=== PATIENT | female | born 1940 | race Caucasian/White ===

== ENCOUNTER → 2017-09-18 13:12 | Outpatient (CLI) | payer MEDICARE, OTHER, SELFPAY ==
--- NOTE | 2017-09-18 13:33 | XR_ITS ---
XR chest 2V Ordering Physician: Brian Flroes MD Patient Age: 76 years: Female HISTORY: ITS.REASON: BRONCHITIS, TECHNIQUE: PA and lateral chest cough. Bronchitis. Cystic L since August 24, 2017. COMPARISON :Previous 2 view chest May 2007 FINDINGS Sternotomy. Aortic valve replacement. Heart slightly larger upper normal in size. The lungs are clear with no focal pneumonia or consolidation. Only question or line peribronchial cuffing questionably seen and could reflect bronchitis but unimpressive. Nothing definitely acute overall. The chest wall and T-spine otherwise unremarkable. No pleural effusion. No pneumothorax. IMPRESSION: Stable chest with nothing definitely acute. No focal pneumonia or consolidation Sternotomy and aortic valve replacement. .
== END ==
PROVIDERS: PCP Nurse Practitioner Family; Visit Provider Internal Medicine Adolescent Medicine
DX: J40 Bronchitis, not specified as acute or chronic (principal); I49.9 Cardiac arrhythmia, unspecified
CPT/HCPCS: 71046; 93005

== ENCOUNTER 2017-09-20 14:16 | Emergency (ER) | payer MEDICARE, OTHER, SELFPAY ==
[2017-09-20 14:22] VITALS: BP 125/61; PULSE 83; RESP 20; TEMP 36.6; O2SAT 96; BMI 33.7
--- NOTE | 2017-09-20 14:34 | XR_ITS ---
XR chest 2V HISTORY: ITS.REASON: CHEST PAIN ORDERING PHYSICIAN: Regan Kraft MD PATIENT AGE: 76 years COMPARISON: 09/18/2017 FINDINGS: Present in prior median sternotomy with aortic valve replacement. No evidence of CHF. No lobar consolidation or collapse. There are degenerative changes in the thoracic spine with kyphosis. IMPRESSION: Prior aortic valve replacement. No change with no acute finding.
[2017-09-20 15:08] LABS: Basophils # 0.1 K/mm3 (0-0.2); Basophils % 0.9 % (0.1-2.0); Eosinophils # 0.2 K/mm3 (0.0-0.4); Hematocrit 41.8 % (37.0-47.0); Hemoglobin 13.7 g/dL (12.2-16.2); Lymphocytes # 3.3 K/mm3 (0.7-4.5); Lymphocytes % 36.2 K/mm3 (10-50); Mean Corpuscular HGB Conc 32.8 g/dL (31.8-35.4); Mean Corpuscular Volume 94.3 fl (81-99); Mean Platelet Volume 8.6 fl (7.4-10.4); Monocytes # 0.5 K/mm3 (0.1-1.0); Monocytes % 5.8 % (1.7-9.3); Neutrophils % 55.1 % (37.0-80.0); Platelet Count 200 K/mm3 (142-424); Red Blood Count 4.44 M/mm3 (4.20-5.40); Red Cell Distribution Width 13.5 % (11.5-17.5)
[2017-09-20 15:16] VITALS: BP 126/71; PULSE 70; RESP 18; O2SAT 94
--- NOTE | 2017-09-20 15:36 | HMH.EDGENADL ---
ED Disposition Clinical Impression: Palpitations, Upper respiratory infection Chest pain Qualifiers: Chest pain type: unspecified Qualified Code(s): R07.9 - Chest pain, unspecified Disposition: Home, Self-Care Condition on Discharge: Good Instructions: DI for Atypical Chest Pain Additional Instructions: Return tomorrow to have a Holter monitor applied. The [facility] cardiology department will contact you when the Holter monitor is ready. See Dr. Flores in the office at 2 PM on 09/22/17. Additional instructions for CHEST PAIN: See your physician as soon as possible for further evaluation. Return immediately if worsening chest pain, vomiting, shortness of breath, fever, coughing of blood. Referrals: Kathleen Gong APRN [Primary Care Provider] - - Critical Care Critical Care Time: No Attestation: On 09/20/17, the high probability of a clinically significant, sudden or life threatening deterioration of the following system(s) required my full and direct attention, intervention and personal management. The time I documented below is in addition to time spent performing reported procedures but includes the following listed in this critical care notation. Medical Decision Making Vital Signs: 09/20/17 14:22 09/20/17 15:16 09/20/17 16:00 Temperature 97.9 F Temperature Source Oral Pulse Rate [Right Brachial] 83 70 67 Respiratory Rate 20 18 16 Blood Pressure [Right Arm] 125/61 126/71 125/60 Blood Pressure Mean [Right Arm] 82 89 81 Blood Pressure Source [Right Arm] Automatic Cuff Automatic Cuff Automatic Cuff Blood Pressure Position [Right Arm] Sitting Sitting Sitting 02 Sat by Pulse Oximetry 96 94 L 94 L Oxygen Delivery Method Room Air Room Air Room Air - Lab Data Lab results reviewed: Yes: I reviewed the patient's lab results. Lab Results 09/20/17 14:30: WBC 9.0, RBC 4.44, Hgb 13.7, Hct 41.8, MCV 94.3, MCH 31.0, MCHC 32.8, RDW 13.5, Plt Count 200, MPV 8.6, Neut % (Auto) 55.1, Lymph % (Auto) 36.2, Taylor % (Auto) 5.8, Eos % (Auto) 2.0, Baso % (Auto) 0.9, Neut # (Auto) 5.0, Lymph # (Auto) 3.3, Taylor # (Auto) 0.5, Eos # (Auto) 0.2, Baso # (Auto) 0.1 09/20/17 14:30: Sodium 139, Potassium 3.9, Chloride 105, Carbon Dioxide 24, Anion Gap 13.9, BUN 12, Creatinine 0.75, Estimated Creat Clear 68, Estimated GFR 75, Est GFR ( Amer) 91, Glucose 124 H, Calcium 8.1 L, Total Bilirubin 0.3, AST 24, ALT 37, Alkaline Phosphatase 84, Total Creatine Kinase 62, CK-MB (CK-2) 0.5, CK-MB (CK-2) Rel Index 0.8, Troponin I 0.04, Total Protein 6.6, Albumin 3.4, Globulin 3.2, Albumin/Globulin Ratio 1.1 Result diagrams: 09/20/17 14:30 09/20/17 14:30 - Radiology Data #1 Image(s): Chest Image Reviewed: Yes I reviewed the patient's radiology results Preliminary Findings: Normal/NAD No change from x-ray performed 2 days ago - ECG Data Tracing #1 EKG interpreted by Regan Kraft MD: Rhythm: sinus Rate: 82 [place]: normal Ectopy: Unifocal PVCs Conduction: Right bundle branch block ST Segment Changes: none T Wave Changes: none Q Waves: none No evidence of acute ischemia or injury Baseline artifact present, but I consider the EKG adequate for accurate interpretation. No significant change from EKG performed 2 days ago. - Karlos Inquiry Pt receiving controlled substance: No Medical Decision Making Narrative: 4:20 PM: Case discussed with Dr. Flores. He requests patient be discharged to follow-up with him in the office at 2:00 PM on Monday. 24-hour Holter monitor, today if possible. Monitor not available currently, but will be available tomorrow. Patient to return tomorrow. Cardiology is to contact her when the Holter monitor is available. General Adult HPI - General Chief complaint: Chest Pain Stated complaint: CHEST PAIN Mode of Arrival: Ambulatory Limitations: No Limitations Description of Symptoms (Recalled from ER Triage Doc. by RN): PT STATES SHE HAS BEEN SICK WITH A COL SINCE 1
[2017-09-20 15:41] LABS: Alanine Aminotransferase 37 U/L (12-78); Albumin Level 3.4 gm/dL (3.4-5.0); Albumin/Globulin Ratio 1.1 (1.1-1.8); Alkaline Phosphatase 84 U/L (46-116); Anion Gap 13.9 mEq/L (5-15); Bilirubin,Total 0.3 mg/dL (0.2-1.0); Blood Urea Nitrogen 12 mg/dL (7-18); CKMB Relative Index 0.8 U/L (0-4.0); Calcium 8.1 mg/dL (8.5-10.1); Carbon Dioxide 24 mmol/L (21.0-32.0); Chloride 105 mmol/L (98-107); Creatine Kinase 62 U/L (26-192); Creatine Kinase MB 0.5 mg/ml (0.0-3.6); Creatinine Clearance Estimated 68 mL/min (0-300); Creatinine,Serum 0.75 mg/dL (0.55-1.02); Estimated Glomerular Filt Rate 75 ml/min (>60); GFR (African American) 91 ML/MIN (>60); Globulin 3.2 gm/dl (1.3-3.2); Glucose 124 mg/dL (74-106); Sodium 139 mmol/L (136-145); Total Protein,Serum 6.6 gm/dL (6.4-8.2); Troponin I 0.04 ng/ml (0.00-0.06)
[2017-09-20 15:42] LABS: Aspartate Amino Transferase 24 U/L (15-37); Potassium 3.9 mmoL/L (3.5-5.1)
[2017-09-20 16:00] VITALS: BP 125/60; PULSE 67; RESP 16; O2SAT 94
--- NOTE | 2017-09-20 16:29 | INFXCTL.NOTE ---
INFORMED PATIENT THAT HOLTER MONITOR WOULD BE AVAILABLE JOSE LUIS. I OBTAINED PATIENT'S CONTACT INFO. AND RELAYED IT TO Monica TOBIN WHO STATED SHE WOULD PASS ALONG TO HAVE SOMEONE CONTACT HER WHEN THE HOLTER MONITOR BECOMES AVAILABLE.
[2017-09-20 16:40] VITALS: BP 125/60; PULSE 83; RESP 18; O2SAT 95
[2017-09-20 16:49] VITALS: BP 124/66; PULSE 76; RESP 18; TEMP 36.7; O2SAT 96
== END 2017-09-20 16:53 | disposition home or self-care (01) ==
PROVIDERS: Emergency Provider Emergency Medicine; Family Provider Internal Medicine Adolescent Medicine; PCP Nurse Practitioner Family
DX: R00.2 Palpitations (principal); J06.9 Acute upper respiratory infection, unspecified
CPT/HCPCS: 71046; 80053; 82550; 82553; 84484; 85025; 93005; 93041; 99284

== ENCOUNTER → 2017-09-21 13:23 | Outpatient (CLI) | payer MEDICARE, OTHER, SELFPAY ==
[2017-09-21 14:14] LABS: PHA INR Fingerstick 1.6 (0.9-1.1)
== END ==
PROVIDERS: Family Provider Internal Medicine Adolescent Medicine; PCP Nurse Practitioner Family; Visit Provider Internal Medicine Adolescent Medicine
DX: Z79.01 Long term (current) use of anticoagulants (principal); Z51.81 Encounter for therapeutic drug level monitoring; R07.9 Chest pain, unspecified
CPT/HCPCS: 85610; 93225; 93226; 99211; G0463

== ENCOUNTER 2017-10-03 14:45 | Outpatient (CLI) | payer MEDICARE, OTHER, SELFPAY ==
[2017-10-03 15:49] LABS: PHA INR Fingerstick 2.1 (0.9-1.1)
== END 2017-10-03 15:51 | disposition home or self-care (01) ==
LOC: ACC 14:47
PROVIDERS: PCP Internal Medicine Adolescent Medicine; Visit Provider Internal Medicine Adolescent Medicine
DX: Z79.01 Long term (current) use of anticoagulants (principal); Z95.2 Presence of prosthetic heart valve; Z51.81 Encounter for therapeutic drug level monitoring
CPT/HCPCS: 85610; 99211; G0463

== ENCOUNTER 2017-10-17 14:49 | Outpatient (CLI) | payer MEDICARE, OTHER, SELFPAY ==
[2017-10-17 15:39] LABS: PHA INR Fingerstick 1.6 (0.9-1.1)
== END 2017-10-17 15:41 | disposition home or self-care (01) ==
LOC: ACC 14:50
PROVIDERS: PCP Internal Medicine Adolescent Medicine; Visit Provider Internal Medicine Adolescent Medicine
DX: Z79.01 Long term (current) use of anticoagulants (principal); Z51.81 Encounter for therapeutic drug level monitoring; Z95.2 Presence of prosthetic heart valve
CPT/HCPCS: 85610; 99211; G0463

== ENCOUNTER 2017-10-24 13:54 | Outpatient (CLI) | payer MEDICARE, OTHER, SELFPAY ==
[2017-10-24 14:20] VITALS: BP 108/48; PULSE 67; RESP 20; TEMP 36.6; O2SAT 98
[2017-10-24 14:40] VITALS: BP 102/52; PULSE 67; RESP 20; TEMP 36.6; O2SAT 98
== END 2017-10-24 14:50 | disposition home or self-care (01) ==
PROVIDERS: Family Provider Internal Medicine Adolescent Medicine; PCP Internal Medicine Adolescent Medicine; Visit Provider Internal Medicine Adolescent Medicine
DX: M81.0 Age-related osteoporosis without current pathological fracture (principal)
CPT/HCPCS: 96372; J0897

== ENCOUNTER 2017-10-31 15:35 | Outpatient (CLI) | payer MEDICARE, OTHER, SELFPAY ==
[2017-10-31 16:16] LABS: PHA INR Fingerstick 1.8 (0.9-1.1)
== END 2017-10-31 16:17 | disposition home or self-care (01) ==
LOC: ACC 15:36
PROVIDERS: Family Provider Internal Medicine Adolescent Medicine; PCP Internal Medicine Adolescent Medicine; Visit Provider Internal Medicine Adolescent Medicine
DX: Z79.01 Long term (current) use of anticoagulants (principal); Z51.81 Encounter for therapeutic drug level monitoring; Z95.2 Presence of prosthetic heart valve
CPT/HCPCS: 85610; 99211; G0463

== ENCOUNTER → 2017-11-01 16:22 | Outpatient (CLI) | payer MEDICARE, OTHER, SELFPAY | PROVIDERS: Visit Provider Nurse Practitioner Family | DX: J40 Bronchitis, not specified as acute or chronic (principal) | CPT/HCPCS: 87070; 87205 ==

== ENCOUNTER 2017-11-14 15:00 | Outpatient (CLI) | payer MEDICARE, OTHER, SELFPAY | END 2017-11-14 15:45 | disposition home or self-care (01) | LOC: ACC 15:02 | PROVIDERS: PCP Internal Medicine Adolescent Medicine; Visit Provider Internal Medicine Adolescent Medicine | DX: Z79.01 Long term (current) use of anticoagulants (principal); Z51.81 Encounter for therapeutic drug level monitoring; Z95.2 Presence of prosthetic heart valve | CPT/HCPCS: 85610; 99211; G0463 ==

== ENCOUNTER 2017-12-12 15:02 | Outpatient (CLI) | payer MEDICARE, OTHER, SELFPAY ==
[2017-12-12 16:01] LABS: PHA INR Fingerstick 2.9 (0.9-1.1)
== END 2017-12-12 16:07 | disposition home or self-care (01) ==
LOC: ACC 15:04
PROVIDERS: PCP Internal Medicine Adolescent Medicine; Visit Provider Internal Medicine Adolescent Medicine
DX: Z79.01 Long term (current) use of anticoagulants (principal); Z51.81 Encounter for therapeutic drug level monitoring; Z95.2 Presence of prosthetic heart valve
CPT/HCPCS: 85610; 99211; G0463

== ENCOUNTER 2018-01-15 14:57 | Outpatient (CLI) | payer MEDICARE, OTHER, SELFPAY ==
[2018-01-15 15:36] LABS: PHA INR Fingerstick 2.5 (0.9-1.1)
== END 2018-01-15 15:44 | disposition home or self-care (01) ==
LOC: ACC 14:59
PROVIDERS: Family Provider Internal Medicine Adolescent Medicine; PCP Internal Medicine Adolescent Medicine; Visit Provider Internal Medicine Adolescent Medicine
DX: Z79.01 Long term (current) use of anticoagulants (principal); Z51.81 Encounter for therapeutic drug level monitoring; Z95.2 Presence of prosthetic heart valve
CPT/HCPCS: 85610; 99211; G0463

== ENCOUNTER 2018-02-12 15:03 | Outpatient (CLI) | payer MEDICARE, OTHER, SELFPAY ==
[2018-02-12 16:12] LABS: PHA INR Fingerstick 3.5 (0.9-1.1)
== END 2018-02-12 16:16 | disposition home or self-care (01) ==
LOC: ACC 15:05
PROVIDERS: Family Provider Internal Medicine Adolescent Medicine; PCP Internal Medicine Adolescent Medicine; Visit Provider Internal Medicine Adolescent Medicine
DX: Z79.01 Long term (current) use of anticoagulants (principal); Z51.81 Encounter for therapeutic drug level monitoring
CPT/HCPCS: 85610; 99211; G0463

== ENCOUNTER 2018-02-26 14:59 | Outpatient (CLI) | payer MEDICARE, OTHER, SELFPAY ==
[2018-02-26 15:42] LABS: PHA INR Fingerstick 1.8 (0.9-1.1)
== END 2018-02-26 15:45 | disposition home or self-care (01) ==
LOC: ACC 15:02
PROVIDERS: Family Provider Internal Medicine Adolescent Medicine; PCP Internal Medicine Adolescent Medicine; Visit Provider Internal Medicine Adolescent Medicine
DX: Z79.01 Long term (current) use of anticoagulants (principal); Z51.81 Encounter for therapeutic drug level monitoring; Z95.2 Presence of prosthetic heart valve
CPT/HCPCS: 85610; 99211; G0463

== ENCOUNTER 2018-03-08 14:43 | Outpatient (CLI) | payer MEDICARE, OTHER, SELFPAY ==
[2018-03-08 16:13] LABS: PHA INR Fingerstick 3.2 (0.9-1.1)
== END 2018-03-08 16:15 | disposition home or self-care (01) ==
LOC: ACC 14:44
PROVIDERS: Internal Medicine Adolescent Medicine; PCP Nurse Practitioner Family; Visit Provider Nurse Practitioner Family
DX: Z79.01 Long term (current) use of anticoagulants (principal); Z51.81 Encounter for therapeutic drug level monitoring; Z95.2 Presence of prosthetic heart valve
CPT/HCPCS: 85610; 99211; G0463

== ENCOUNTER 2018-03-30 14:49 | Outpatient (CLI) | payer MEDICARE, OTHER, SELFPAY ==
[2018-03-30 16:24] LABS: PHA INR Fingerstick 2.7 (0.9-1.1)
== END 2018-03-30 16:26 | disposition home or self-care (01) ==
LOC: ACC 14:50
PROVIDERS: PCP Internal Medicine Adolescent Medicine; Visit Provider Internal Medicine Adolescent Medicine
DX: Z79.01 Long term (current) use of anticoagulants (principal); Z51.81 Encounter for therapeutic drug level monitoring; Z95.2 Presence of prosthetic heart valve
CPT/HCPCS: 85610; 99211; G0463

== ENCOUNTER 2018-04-26 13:55 | Outpatient (CLI) | payer MEDICARE, OTHER, SELFPAY ==
[2018-04-26 14:43] VITALS: BP 121/60; PULSE 81; RESP 18; TEMP 36.5; O2SAT 97
== END 2018-04-26 14:45 | disposition home or self-care (01) ==
LOC: INF 14:03
PROVIDERS: Family Provider Internal Medicine Adolescent Medicine; PCP Internal Medicine Adolescent Medicine; Visit Provider Internal Medicine Adolescent Medicine
DX: Z79.01 Long term (current) use of anticoagulants (principal); Z51.81 Encounter for therapeutic drug level monitoring
CPT/HCPCS: 96372; J0897

== ENCOUNTER 2018-04-26 14:45 | Outpatient (CLI) | payer MEDICARE, OTHER, SELFPAY ==
[2018-04-26 15:31] LABS: PHA INR Fingerstick 2.8 (0.9-1.1)
== END 2018-04-26 15:34 | disposition home or self-care (01) ==
LOC: ACC 14:46
PROVIDERS: Family Provider Internal Medicine Adolescent Medicine; PCP Internal Medicine Adolescent Medicine; Visit Provider Internal Medicine Adolescent Medicine
DX: Z79.01 Long term (current) use of anticoagulants (principal); Z51.81 Encounter for therapeutic drug level monitoring; Z95.2 Presence of prosthetic heart valve; M81.0 Age-related osteoporosis without current pathological fracture
CPT/HCPCS: 85610; 96372; 99211; G0463; J0897

== ENCOUNTER → 2018-04-27 12:36 | Outpatient (CLI) | payer MEDICARE, OTHER, SELFPAY | PROVIDERS: Family Provider Internal Medicine Adolescent Medicine; PCP Internal Medicine Adolescent Medicine; Visit Provider Nurse Practitioner Family | DX: M81.0 Age-related osteoporosis without current pathological fracture (principal) ==

== ENCOUNTER → 2018-05-02 13:29 | Outpatient (CLI) | payer MEDICARE, OTHER, SELFPAY ==
--- NOTE | 2018-05-02 13:38 | XR_ITS ---
XR DEXA axial skeleton HISTORY: ITS.REASON: OSTEOPOROSIS ORDERING PHYSICIAN: Brian Flores MD PATIENT AGE: 77 years COMPARISON: 03/24/2016 FINDINGS: The BMD measured at the AP Spine L1-L4 is 0.949 g/cm squared with a T score of -1.9. This is considered Osteopenic according to the World Health Organization criteria. Fracture risk is Moderate. Treatment is advised. Lumbar spine density has increased by 4%. Mean hip density has a T score of -1.7 consistent with osteopenia. This has increased by 4% compared to the previous exam. IMPRESSION: Osteopenia with moderate fracture risk. Treatment is suggested. Recommend follow-up exam April 2020
== END ==
PROVIDERS: Family Provider Internal Medicine Adolescent Medicine; PCP Internal Medicine Adolescent Medicine; Visit Provider Internal Medicine Adolescent Medicine
DX: M81.0 Age-related osteoporosis without current pathological fracture (principal)
CPT/HCPCS: 77080

== ENCOUNTER 2018-05-28 13:48 | Outpatient (CLI) | payer MEDICARE, OTHER, SELFPAY ==
[2018-05-28 14:54] LABS: PHA INR Fingerstick 3.5 (0.9-1.1)
== END 2018-05-28 14:57 | disposition home or self-care (01) ==
LOC: ACC 13:49
PROVIDERS: Family Provider Internal Medicine Adolescent Medicine; PCP Internal Medicine Adolescent Medicine; Visit Provider Internal Medicine Adolescent Medicine
DX: Z51.81 Encounter for therapeutic drug level monitoring (principal); Z79.01 Long term (current) use of anticoagulants; Z95.2 Presence of prosthetic heart valve
CPT/HCPCS: 85610; 99211; G0463

== ENCOUNTER 2018-06-07 14:54 | Outpatient (CLI) | payer MEDICARE, OTHER, SELFPAY ==
[2018-06-07 15:43] LABS: PHA INR Fingerstick 2.1 (0.9-1.1)
== END 2018-06-07 15:45 | disposition home or self-care (01) ==
LOC: ACC 14:56
PROVIDERS: PCP Internal Medicine Adolescent Medicine; Visit Provider Internal Medicine Adolescent Medicine
DX: Z51.81 Encounter for therapeutic drug level monitoring (principal); Z79.01 Long term (current) use of anticoagulants; Z95.2 Presence of prosthetic heart valve
CPT/HCPCS: 85610; 99211; G0463

== ENCOUNTER 2018-06-14 14:54 | Outpatient (CLI) | payer MEDICARE, OTHER, SELFPAY ==
[2018-06-14 15:33] LABS: PHA INR Fingerstick 2.8 (0.9-1.1)
== END 2018-06-14 15:38 | disposition home or self-care (01) ==
LOC: ACC 14:55
PROVIDERS: PCP Internal Medicine Adolescent Medicine; Visit Provider Internal Medicine Adolescent Medicine
DX: Z51.81 Encounter for therapeutic drug level monitoring (principal); Z79.01 Long term (current) use of anticoagulants; Z95.2 Presence of prosthetic heart valve
CPT/HCPCS: 85610; 99211; G0463

== ENCOUNTER 2018-06-28 14:54 | Outpatient (CLI) | payer MEDICARE, OTHER, SELFPAY ==
[2018-06-28 15:37] LABS: PHA INR Fingerstick 2.3 (0.9-1.1)
== END 2018-06-28 15:46 | disposition home or self-care (01) ==
LOC: ACC 14:56
PROVIDERS: PCP Internal Medicine Adolescent Medicine; Visit Provider Internal Medicine Adolescent Medicine
DX: Z51.81 Encounter for therapeutic drug level monitoring (principal); Z79.01 Long term (current) use of anticoagulants; Z95.2 Presence of prosthetic heart valve
CPT/HCPCS: 85610; 99211; G0463

== ENCOUNTER 2018-07-17 14:48 | Outpatient (CLI) | payer MEDICARE, OTHER, SELFPAY ==
[2018-07-17 16:17] LABS: PHA INR Fingerstick 2.2 (0.9-1.1)
== END 2018-07-17 16:20 | disposition home or self-care (01) ==
LOC: ACC 14:49
PROVIDERS: PCP Internal Medicine Adolescent Medicine; Visit Provider Internal Medicine Adolescent Medicine
DX: Z95.2 Presence of prosthetic heart valve (principal); Z79.01 Long term (current) use of anticoagulants
CPT/HCPCS: 85610; 99211; G0463

== ENCOUNTER 2018-08-03 14:56 | Outpatient (CLI) | payer MEDICARE, OTHER, SELFPAY ==
[2018-08-03 15:43] LABS: PHA INR Fingerstick 2.5 (0.9-1.1)
== END 2018-08-03 15:48 | disposition home or self-care (01) ==
LOC: ACC 14:57
PROVIDERS: PCP Internal Medicine Adolescent Medicine; Visit Provider Internal Medicine Adolescent Medicine
DX: Z51.81 Encounter for therapeutic drug level monitoring (principal); Z79.01 Long term (current) use of anticoagulants; Z95.2 Presence of prosthetic heart valve
CPT/HCPCS: 85610; 99211; G0463

== ENCOUNTER 2018-09-03 14:53 | Outpatient (CLI) | payer MEDICARE, OTHER, SELFPAY ==
[2018-09-03 15:52] LABS: PHA INR Fingerstick 2.2 (0.9-1.1)
== END 2018-09-03 15:53 | disposition home or self-care (01) ==
LOC: ACC 14:56
PROVIDERS: PCP Internal Medicine Adolescent Medicine; Visit Provider Internal Medicine Adolescent Medicine
DX: Z51.81 Encounter for therapeutic drug level monitoring (principal); Z79.01 Long term (current) use of anticoagulants; Z95.2 Presence of prosthetic heart valve
CPT/HCPCS: 85610; 99211; G0463

== ENCOUNTER 2018-09-18 14:50 | Outpatient (CLI) | payer MEDICARE, OTHER, SELFPAY ==
[2018-09-18 15:51] LABS: PHA INR Fingerstick 2.3 (0.9-1.1)
== END 2018-09-18 15:54 | disposition home or self-care (01) ==
LOC: ACC 14:51
PROVIDERS: PCP Internal Medicine Adolescent Medicine; Visit Provider Internal Medicine Adolescent Medicine
DX: Z51.81 Encounter for therapeutic drug level monitoring (principal); Z79.01 Long term (current) use of anticoagulants; Z95.2 Presence of prosthetic heart valve
CPT/HCPCS: 85610; 99211; G0463

== ENCOUNTER 2018-10-03 15:02 | Outpatient (CLI) | payer MEDICARE, OTHER, SELFPAY ==
[2018-10-03 15:40] LABS: PHA INR Fingerstick 2.3 (0.9-1.1)
== END 2018-10-03 15:42 | disposition home or self-care (01) ==
LOC: ACC 15:04
PROVIDERS: PCP Internal Medicine Adolescent Medicine; Visit Provider Internal Medicine Adolescent Medicine
DX: Z51.81 Encounter for therapeutic drug level monitoring (principal); Z79.01 Long term (current) use of anticoagulants; Z95.2 Presence of prosthetic heart valve
CPT/HCPCS: 85610; 99211; G0463

== ENCOUNTER → 2018-10-09 12:59 | Outpatient (CLI) | payer MEDICARE, OTHER, SELFPAY ==
[2018-10-09 13:40] LABS: Basophils # 0.1 K/mm3 (0-0.2); Basophils % 0.9 % (0.1-2.0); Eosinophils # 0.1 K/mm3 (0.0-0.4); Eosinophils % 1.6 % (0.1-12.0); Hematocrit 44.2 % (37.0-47.0); Hemoglobin 14.5 g/dL (12.2-16.2); Lymphocytes # 3.1 K/mm3 (0.7-4.5); Lymphocytes % 43.6 % (10-50); Mean Corpuscular HGB Conc 32.8 g/dL (31.8-35.4); Mean Corpuscular Hemoglobin 30.6 pg (27.0-31.2); Mean Corpuscular Volume 93.3 fl (81-99); Mean Platelet Volume 7.1 fl (7.4-10.4); Monocytes # 0.4 K/mm3 (0.1-1.0); Monocytes % 5.2 % (1.7-9.3); Neutrophils # 3.5 K/mm3 (1.8-7.8); Neutrophils % 48.7 % (37.0-80.0); Platelet Count 243 K/mm3 (142-424); Red Blood Count 4.74 M/mm3 (4.20-5.40); Red Cell Distribution Width 13.9 % (11.5-17.5); White Blood Count 7.1 K/mm3 (4.8-10.8)
[2018-10-09 14:32] LABS: Alanine Aminotransferase 34 U/L (12-78); Albumin Level 3.7 gm/dL (3.4-5.0); Albumin/Globulin Ratio 1.1 (1.1-1.8); Alkaline Phosphatase 68 U/L (46-116); Aspartate Amino Transferase 19 U/L (15-37); Bilirubin,Total 0.3 mg/dL (0.2-1.0); Blood Urea Nitrogen 11 mg/dL (7-18); Calcium 8.8 mg/dL (8.5-10.1); Carbon Dioxide 24 mmol/L (21.0-32.0); Chloride 103 mmol/L (98-107); Chol/HDL Ratio 3.3 (1-3.5); Cholesterol 156 mg/dL (140-200); Creatinine,Serum 0.84 mg/dL (0.55-1.02); Estimated Glomerular Filt Rate 66 ml/min (>60); GFR (African American) 79 ML/MIN (>60); Globulin 3.3 gm/dl (1.3-3.2); Glucose 119 mg/dL (74-106); HDL Cholesterol 48 mg/dL (29-89); LDL Cholesterol 84 mg/dL (0-130); Sodium 139 mmol/L (136-145); Triglycerides 118 mg/dL (30-200); VLDL Cholesterol 24 mg/dL (0-40)
[2018-10-09 15:00] LABS: Hemoglobin A1C 6.4 % (0.0-7.0)
[2018-10-10 10:22] LABS: Creatinine, Urine 37.6 mg/dL (Not Estab.); Microalbumin, Urine <3.0 ug/mL (Not Estab.)
== END ==
PROVIDERS: Visit Provider Nurse Practitioner Family
DX: I10 Essential (primary) hypertension (principal); E78.5 Hyperlipidemia, unspecified; R73.03 Prediabetes; M81.0 Age-related osteoporosis without current pathological fracture; Z51.81 Encounter for therapeutic drug level monitoring; Z79.01 Long term (current) use of anticoagulants
CPT/HCPCS: 36415; 80053; 80061; 82043; 82570; 82652; 83036; 85025

== ENCOUNTER 2018-10-24 14:53 | Outpatient (CLI) | payer MEDICARE, OTHER, SELFPAY ==
[2018-10-24 15:56] LABS: PHA INR Fingerstick 3.2 (0.9-1.1)
== END 2018-10-24 15:58 | disposition home or self-care (01) ==
LOC: ACC 14:55
PROVIDERS: PCP Internal Medicine Adolescent Medicine; Visit Provider Internal Medicine Adolescent Medicine
DX: Z51.81 Encounter for therapeutic drug level monitoring (principal); Z79.01 Long term (current) use of anticoagulants; Z95.2 Presence of prosthetic heart valve
CPT/HCPCS: 85610; 99211; G0463

== ENCOUNTER 2018-10-31 13:59 | Outpatient (CLI) | payer MEDICARE, OTHER, SELFPAY ==
[2018-10-31 14:11] VITALS: BP 120/61; PULSE 71; RESP 18; TEMP 36.6; O2SAT 93
== END 2018-10-31 14:13 | disposition home or self-care (01) ==
LOC: INF 13:59
PROVIDERS: Visit Provider Internal Medicine Adolescent Medicine
DX: M81.0 Age-related osteoporosis without current pathological fracture (principal)
CPT/HCPCS: 96372; J0897

== ENCOUNTER 2018-11-28 14:51 | Outpatient (CLI) | payer MEDICARE, OTHER, SELFPAY ==
[2018-11-28 15:36] LABS: PHA INR Fingerstick 2.2 (0.9-1.1)
== END 2018-11-28 15:52 | disposition home or self-care (01) ==
LOC: ACC 14:52
PROVIDERS: PCP Internal Medicine Adolescent Medicine; Visit Provider Internal Medicine Adolescent Medicine
DX: Z51.81 Encounter for therapeutic drug level monitoring (principal); Z79.01 Long term (current) use of anticoagulants; Z95.2 Presence of prosthetic heart valve
CPT/HCPCS: 85610; 99211; G0463

== ENCOUNTER → 2018-12-13 16:08 | Outpatient (CLI) | payer MEDICARE, OTHER, SELFPAY ==
[2018-12-13 17:06] LABS: Basophils # 0.1 K/mm3 (0-0.2); Basophils % 0.8 % (0.1-2.0); Eosinophils # 0.2 K/mm3 (0.0-0.4); Eosinophils % 1.8 % (0.1-12.0); Hematocrit 43.9 % (37.0-47.0); Hemoglobin 14.7 g/dL (12.2-16.2); Lymphocytes # 3.6 K/mm3 (0.7-4.5); Lymphocytes % 40.3 % (10-50); Mean Corpuscular HGB Conc 33.4 g/dL (31.8-35.4); Mean Corpuscular Hemoglobin 31.1 pg (27.0-31.2); Mean Corpuscular Volume 93.2 fl (81-99); Mean Platelet Volume 7.4 fl (7.4-10.4); Monocytes # 0.5 K/mm3 (0.1-1.0); Monocytes % 5.4 % (1.7-9.3); Neutrophils # 4.7 K/mm3 (1.8-7.8); Neutrophils % 51.7 % (37.0-80.0); Platelet Count 282 K/mm3 (142-424); Red Blood Count 4.71 M/mm3 (4.20-5.40); Red Cell Distribution Width 13.8 % (11.5-17.5)
[2018-12-13 17:08] LABS: INR 2.53 (0.9-1.1); Prothrombin Time 25.4 seconds (9.4-11.8)
[2018-12-13 19:34] LABS: Anion Gap 15.5 mEq/L (5-15); Blood Urea Nitrogen 15 mg/dL (7-18); Calcium 9.3 mg/dL (8.5-10.1); Carbon Dioxide 24 mmol/L (21.0-32.0); Chloride 102 mmol/L (98-107); Creatinine,Serum 0.95 mg/dL (0.55-1.02); Estimated Glomerular Filt Rate 57 ml/min (>60); GFR (African American) 69 ML/MIN (>60); Glucose 86 mg/dL (74-106); Magnesium 2.3 mg/dL (1.4-2.2); Potassium 4.5 mmoL/L (3.5-5.1); Sodium 137 mmol/L (136-145); Thyroid Stimulating Hormone 2.01 uIU/ml (0.358-3.740)
== END ==
PROVIDERS: Visit Provider Nurse Practitioner Family
DX: R00.1 Bradycardia, unspecified (principal); I35.9 Nonrheumatic aortic valve disorder, unspecified; Z51.81 Encounter for therapeutic drug level monitoring; Z79.01 Long term (current) use of anticoagulants
CPT/HCPCS: 36415; 80048; 83735; 84443; 85025; 85610

== ENCOUNTER 2018-12-24 14:56 | Outpatient (CLI) | payer MEDICARE, OTHER, SELFPAY ==
[2018-12-24 15:33] LABS: PHA INR Fingerstick 2.7 (0.9-1.1)
== END 2018-12-24 15:34 | disposition home or self-care (01) ==
LOC: ACC 14:57
PROVIDERS: PCP Internal Medicine Adolescent Medicine; Visit Provider Internal Medicine Adolescent Medicine
DX: Z51.81 Encounter for therapeutic drug level monitoring (principal); Z79.01 Long term (current) use of anticoagulants; Z95.2 Presence of prosthetic heart valve
CPT/HCPCS: 85610; 99211; G0463

== ENCOUNTER → 2019-01-25 15:33 | Outpatient (CLI) | payer MEDICARE, OTHER, SELFPAY ==
[2019-01-25 16:54] LABS: Basophils # 0.1 K/mm3 (0-0.2); Basophils % 0.7 % (0.1-2.0); Eosinophils # 0.1 K/mm3 (0.0-0.4); Hematocrit 43.3 % (37.0-47.0); Hemoglobin 14.7 g/dL (12.2-16.2); Lymphocytes # 2.4 K/mm3 (0.7-4.5); Lymphocytes % 35.5 % (10-50); Mean Corpuscular HGB Conc 33.9 g/dL (31.8-35.4); Mean Corpuscular Hemoglobin 30.9 pg (27.0-31.2); Mean Platelet Volume 7.7 fl (7.4-10.4); Monocytes # 0.4 K/mm3 (0.1-1.0); Monocytes % 5.5 % (1.7-9.3); Neutrophils # 3.8 K/mm3 (1.8-7.8); Neutrophils % 56.3 % (37.0-80.0); Platelet Count 237 K/mm3 (142-424); Red Blood Count 4.76 M/mm3 (4.20-5.40); Red Cell Distribution Width 13.3 % (11.5-17.5); White Blood Count 6.8 K/mm3 (4.8-10.8)
[2019-01-25 17:36] LABS: Alanine Aminotransferase 68 U/L (12-78); Albumin Level 3.4 gm/dL (3.4-5.0); Albumin/Globulin Ratio 1.1 (1.1-1.8); Alkaline Phosphatase 72 U/L (46-116); Amylase 36 U/L (25-115); Anion Gap 12.9 mEq/L (5-15); Aspartate Amino Transferase 55 U/L (15-37); Bilirubin,Total 0.4 mg/dL (0.2-1.0); Blood Urea Nitrogen 12 mg/dL (7-18); Calcium 7.8 mg/dL (8.5-10.1); Carbon Dioxide 21 mmol/L (21.0-32.0); Chloride 105 mmol/L (98-107); Creatinine,Serum 0.86 mg/dL (0.55-1.02); Estimated Glomerular Filt Rate 64 ml/min (>60); GFR (African American) 77 ML/MIN (>60); Glucose 135 mg/dL (74-106); Lipase 176 u/L (73-393); Potassium 3.9 mmoL/L (3.5-5.1); Sodium 135 mmol/L (136-145); Total Protein,Serum 6.4 gm/dL (6.4-8.2)
== END ==
PROVIDERS: Visit Provider Internal Medicine Adolescent Medicine
DX: R10.84 Generalized abdominal pain (principal); Z95.2 Presence of prosthetic heart valve; Z79.01 Long term (current) use of anticoagulants
CPT/HCPCS: 36415; 80053; 82150; 83690; 85025

== ENCOUNTER 2019-01-28 14:49 | Outpatient (CLI) | payer MEDICARE, OTHER, SELFPAY | END 2019-01-28 15:32 | disposition home or self-care (01) | LOC: ACC 14:50 | PROVIDERS: PCP Internal Medicine Adolescent Medicine; Visit Provider Internal Medicine Adolescent Medicine | DX: Z51.81 Encounter for therapeutic drug level monitoring (principal); Z79.01 Long term (current) use of anticoagulants; Z95.2 Presence of prosthetic heart valve | CPT/HCPCS: 85610; 99211; G0463 ==

== ENCOUNTER 2019-02-26 14:45 | Outpatient (CLI) | payer MEDICARE, OTHER, SELFPAY ==
[2019-02-26 15:50] LABS: PHA INR Fingerstick 2.4 (0.9-1.1)
== END 2019-02-26 15:51 | disposition home or self-care (01) ==
LOC: ACC 14:46
PROVIDERS: PCP Internal Medicine Adolescent Medicine; Visit Provider Internal Medicine Adolescent Medicine
DX: Z51.81 Encounter for therapeutic drug level monitoring (principal); Z79.01 Long term (current) use of anticoagulants; Z95.2 Presence of prosthetic heart valve
CPT/HCPCS: 85610; 99211; G0463

== ENCOUNTER → 2019-03-28 17:18 | Outpatient (CLI) | payer MEDICARE, OTHER, SELFPAY ==
[2019-03-28 17:35] LABS: Basophils # 0.1 K/mm3 (0-0.2); Basophils % 0.7 % (0.1-2.0); Eosinophils # 0.2 K/mm3 (0.0-0.4); Hematocrit 41.6 % (37.0-47.0); Lymphocytes # 3.5 K/mm3 (0.7-4.5); Lymphocytes % 39.2 % (10-50); Mean Corpuscular HGB Conc 31.1 g/dL (31.8-35.4); Mean Corpuscular Hemoglobin 30.4 pg (27.0-31.2); Mean Corpuscular Volume 97.8 fl (81-99); Mean Platelet Volume 8.3 fl (7.4-10.4); Monocytes # 0.5 K/mm3 (0.1-1.0); Monocytes % 5.8 % (1.7-9.3); Neutrophils # 4.6 K/mm3 (1.8-7.8); Neutrophils % 52.4 % (37.0-80.0); Platelet Count 220 K/mm3 (142-424); Red Blood Count 4.26 M/mm3 (4.20-5.40); Red Cell Distribution Width 13.9 % (11.5-17.5); White Blood Count 8.8 K/mm3 (4.8-10.8)
[2019-03-28 17:44] LABS: INR 2.98 (0.9-1.1); Prothrombin Time 29.4 seconds (9.4-11.8)
[2019-03-28 21:06] LABS: Alanine Aminotransferase 34 U/L (12-78); Albumin Level 3.3 gm/dL (3.4-5.0); Alkaline Phosphatase 72 U/L (46-116); Anion Gap 13.4 mEq/L (5-15); Aspartate Amino Transferase 15 U/L (15-37); Bilirubin,Total 0.4 mg/dL (0.2-1.0); Blood Urea Nitrogen 10 mg/dL (7-18); Calcium 8.7 mg/dL (8.5-10.1); Carbon Dioxide 27 mmol/L (21.0-32.0); Chloride 105 mmol/L (98-107); Creatinine,Serum 0.95 mg/dL (0.55-1.02); Estimated Glomerular Filt Rate 57 ml/min (>60); GFR (African American) 69 ML/MIN (>60); Globulin 3.2 gm/dl (1.3-3.2); Glucose 92 mg/dL (74-106); Magnesium 2.1 mg/dL (1.4-2.2); Potassium 4.4 mmoL/L (3.5-5.1); Sodium 141 mmol/L (136-145); Thyroid Stimulating Hormone 1.85 uIU/ml (0.358-3.740); Total Protein,Serum 6.5 gm/dL (6.4-8.2)
== END ==
PROVIDERS: Visit Provider Nurse Practitioner Family
DX: R00.1 Bradycardia, unspecified (principal); I35.9 Nonrheumatic aortic valve disorder, unspecified; Z79.01 Long term (current) use of anticoagulants
CPT/HCPCS: 36415; 80053; 83735; 84443; 85025; 85610

== ENCOUNTER 2019-04-03 14:56 | Outpatient (CLI) | payer MEDICARE, OTHER, SELFPAY ==
[2019-04-03 15:49] LABS: PHA INR Fingerstick 2.8 (0.9-1.1)
== END 2019-04-03 15:51 | disposition home or self-care (01) ==
LOC: ACC 14:57
PROVIDERS: PCP Internal Medicine Adolescent Medicine; Visit Provider Internal Medicine Adolescent Medicine
DX: Z51.81 Encounter for therapeutic drug level monitoring (principal); Z79.01 Long term (current) use of anticoagulants; Z95.2 Presence of prosthetic heart valve
CPT/HCPCS: 85610; 99211; G0463

== ENCOUNTER 2019-05-13 15:01 | Outpatient (CLI) | payer MEDICARE, OTHER, SELFPAY ==
[2019-05-13 15:28] LABS: PHA INR Fingerstick 2.2 (0.9-1.1)
== END 2019-05-13 15:33 | disposition home or self-care (01) ==
LOC: ACC 15:02
PROVIDERS: PCP Internal Medicine Adolescent Medicine; Visit Provider Internal Medicine Adolescent Medicine
DX: Z51.81 Encounter for therapeutic drug level monitoring (principal); Z79.01 Long term (current) use of anticoagulants; Z95.2 Presence of prosthetic heart valve
CPT/HCPCS: 85610; 99211; G0463

== ENCOUNTER 2019-05-15 13:55 | Outpatient (CLI) | payer MEDICARE, OTHER, SELFPAY ==
[2019-05-15 13:50] VITALS: BP 145/75; PULSE 68; RESP 18; O2SAT 93
== END 2019-05-15 14:25 | disposition home or self-care (01) ==
LOC: INF 13:55
PROVIDERS: Visit Provider Internal Medicine Adolescent Medicine
DX: M81.0 Age-related osteoporosis without current pathological fracture (principal)
CPT/HCPCS: 96372; J0897

== ENCOUNTER 2019-06-25 15:31 | Outpatient (CLI) | payer MEDICARE, OTHER, SELFPAY ==
[2019-06-25 16:00] LABS: PHA INR Fingerstick 2.9 (0.9-1.1)
== END 2019-06-25 16:01 | disposition home or self-care (01) ==
LOC: ACC 15:34
PROVIDERS: PCP Internal Medicine Adolescent Medicine; Visit Provider Internal Medicine Adolescent Medicine
DX: Z51.81 Encounter for therapeutic drug level monitoring (principal); Z79.01 Long term (current) use of anticoagulants; Z95.2 Presence of prosthetic heart valve
CPT/HCPCS: 85610; 99211; G0463

== ENCOUNTER 2019-08-07 14:19 | Outpatient (CLI) | payer MEDICARE, OTHER, SELFPAY ==
[2019-08-07 15:05] LABS: PHA INR Fingerstick 2.6 (0.9-1.1)
== END 2019-08-07 15:06 | disposition home or self-care (01) ==
LOC: ACC 14:21
PROVIDERS: PCP Internal Medicine Adolescent Medicine; Visit Provider Internal Medicine Adolescent Medicine
DX: Z51.81 Encounter for therapeutic drug level monitoring (principal); Z79.01 Long term (current) use of anticoagulants; Z95.2 Presence of prosthetic heart valve
CPT/HCPCS: 85610; 99211; G0463

== ENCOUNTER → 2019-08-22 17:14 | Outpatient (CLI) | payer MEDICARE, OTHER, SELFPAY ==
[2019-08-22 17:49] LABS: INR 3.76 (0.9-1.1); Prothrombin Time 36.7 seconds (9.4-11.8)
== END ==
PROVIDERS: Visit Provider Internal Medicine Adolescent Medicine
DX: I35.9 Nonrheumatic aortic valve disorder, unspecified (principal); Z51.81 Encounter for therapeutic drug level monitoring; Z79.01 Long term (current) use of anticoagulants
CPT/HCPCS: 36415; 85610

== ENCOUNTER → 2019-09-02 17:01 | Outpatient (CLI) | payer MEDICARE, OTHER, SELFPAY ==
--- NOTE | 2019-09-02 17:09 | XR_ITS ---
PROCEDURE: XR CHEST 2V CLINICAL HISTORY: COUGH, SOB ON EXERTION Cough and shortness of breath COMPARISON: CXR2V XR chest 2V from 09/18/2017 CXR2V XR chest 2V from 09/20/2017 FINDINGS: Mild cardiomegaly. Prior median sternotomy with aortic valve replacement. There is mild pulmonary venous congestion There are mild atelectatic changes in the left lung base. No lobar consolidation or collapse No acute bony abnormalities. IMPRESSION: Mild CHF Dictated by: Delfino Gandara MD 09/02/2019 19:26 Electronically signed by Delfino Gandara MD in [place] 09/02/2019 19:26
[2019-09-02 17:25] LABS: Basophils # 0.1 K/mm3 (0-0.2); Eosinophils # 0.2 K/mm3 (0.0-0.4); Eosinophils % 1.3 % (0.1-12.0); Hematocrit 41.3 % (37.0-47.0); Hemoglobin 12.9 g/dL (12.2-16.2); Lymphocytes % 32.4 % (10-50); Mean Corpuscular HGB Conc 31.3 g/dL (31.8-35.4); Mean Corpuscular Hemoglobin 30.9 pg (27.0-31.2); Mean Corpuscular Volume 98.5 fl (81-99); Mean Platelet Volume 7.7 fl (7.4-10.4); Monocytes # 0.8 K/mm3 (0.1-1.0); Monocytes % 6.4 % (1.7-9.3); Neutrophils # 7.3 K/mm3 (1.8-7.8); Platelet Count 381 K/mm3 (142-424); Red Blood Count 4.19 M/mm3 (4.20-5.40); White Blood Count 12.3 K/mm3 (4.8-10.8)
[2019-09-02 17:52] LABS: INR 3.19 (0.9-1.1); Prothrombin Time 31.4 seconds (9.4-11.8)
[2019-09-02 22:00] LABS: Anion Gap 15.5 mEq/L (5-15); Blood Urea Nitrogen 17 mg/dL (7-18); Calcium 8.5 mg/dL (8.5-10.1); Carbon Dioxide 25 mmol/L (21.0-32.0); Chloride 104 mmol/L (98-107); Creatinine,Serum 0.91 mg/dL (0.55-1.02); Estimated Glomerular Filt Rate 60 ml/min (>60); GFR (African American) 72 ML/MIN (>60); Glucose 79 mg/dL (74-106); Potassium 4.5 mmoL/L (3.5-5.1); Sodium 140 mmol/L (136-145)
== END ==
PROVIDERS: Visit Provider Nurse Practitioner Family
DX: R05 Cough (principal); R06.02 Shortness of breath; I35.9 Nonrheumatic aortic valve disorder, unspecified; Z51.81 Encounter for therapeutic drug level monitoring; Z79.01 Long term (current) use of anticoagulants
CPT/HCPCS: 36415; 71046; 80048; 85025; 85610

== ENCOUNTER 2019-09-06 13:52 | Outpatient (CLI) | payer MEDICARE, OTHER, SELFPAY ==
[2019-09-06 14:43] LABS: PHA INR Fingerstick 2.9 (0.9-1.1)
== END 2019-09-06 14:56 | disposition home or self-care (01) ==
LOC: ACC 13:54
PROVIDERS: PCP Internal Medicine Adolescent Medicine; Visit Provider Internal Medicine Adolescent Medicine
DX: Z51.81 Encounter for therapeutic drug level monitoring (principal); Z79.01 Long term (current) use of anticoagulants; Z95.2 Presence of prosthetic heart valve
CPT/HCPCS: 85610; 99211; G0463

== ENCOUNTER → 2019-09-16 16:17 | Outpatient (CLI) | payer MEDICARE, OTHER, SELFPAY ==
[2019-09-16 16:34] LABS: Basophils # 0.1 K/mm3 (0-0.2); Basophils % 0.8 % (0.1-2.0); Eosinophils # 0.2 K/mm3 (0.0-0.4); Hematocrit 41.6 % (37.0-47.0); Hemoglobin 13.2 g/dL (12.2-16.2); Lymphocytes # 2.5 K/mm3 (0.7-4.5); Lymphocytes % 29.7 % (10-50); Mean Corpuscular HGB Conc 31.8 g/dL (31.8-35.4); Mean Corpuscular Hemoglobin 31.2 pg (27.0-31.2); Mean Corpuscular Volume 98.2 fl (81-99); Mean Platelet Volume 8.1 fl (7.4-10.4); Monocytes # 0.6 K/mm3 (0.1-1.0); Monocytes % 6.9 % (1.7-9.3); Neutrophils % 60.7 % (37.0-80.0); Platelet Count 237 K/mm3 (142-424); Red Blood Count 4.24 M/mm3 (4.20-5.40); Red Cell Distribution Width 13.8 % (11.5-17.5); White Blood Count 8.3 K/mm3 (4.8-10.8)
[2019-09-16 16:41] LABS: INR 3.07 (0.9-1.1); Prothrombin Time 30.3 seconds (9.4-11.8)
[2019-09-16 17:30] LABS: Anion Gap 11.6 mEq/L (5-15); Blood Urea Nitrogen 16 mg/dL (7-18); Calcium 8.3 mg/dL (8.5-10.1); Carbon Dioxide 27 mmol/L (21.0-32.0); Chloride 103 mmol/L (98-107); Creatinine,Serum 0.94 mg/dL (0.55-1.02); Estimated Glomerular Filt Rate 57 ml/min (>60); GFR (African American) 70 ML/MIN (>60); Glucose 79 mg/dL (74-106); Potassium 3.6 mmoL/L (3.5-5.1); Sodium 138 mmol/L (136-145)
== END ==
PROVIDERS: Visit Provider Nurse Practitioner Family
DX: I50.9 Heart failure, unspecified (principal); D72.829 Elevated white blood cell count, unspecified; I35.9 Nonrheumatic aortic valve disorder, unspecified; R06.02 Shortness of breath; Z79.01 Long term (current) use of anticoagulants
CPT/HCPCS: 36415; 80048; 83735; 83880; 85025; 85610

== ENCOUNTER 2019-09-23 13:49 | Outpatient (CLI) | payer MEDICARE, OTHER, SELFPAY ==
[2019-09-23 15:46] LABS: PHA INR Fingerstick 4.4 (0.9-1.1)
[2019-09-23 16:22] LABS: INR 4.75 (0.9-1.1); Prothrombin Time 45.9 seconds (9.4-11.8)
== END 2019-09-23 15:48 | disposition home or self-care (01) ==
PROVIDERS: PCP Internal Medicine Adolescent Medicine; Visit Provider Internal Medicine Adolescent Medicine
DX: Z51.81 Encounter for therapeutic drug level monitoring (principal); Z79.01 Long term (current) use of anticoagulants; Z95.2 Presence of prosthetic heart valve
CPT/HCPCS: 36415; 85610; 99211; G0463

== ENCOUNTER 2019-09-30 14:22 | Outpatient (CLI) | payer MEDICARE, OTHER, SELFPAY ==
[2019-09-30 15:48] LABS: PHA INR Fingerstick 2.4 (0.9-1.1)
== END 2019-09-30 15:56 | disposition home or self-care (01) ==
LOC: ACC 14:24
PROVIDERS: PCP Internal Medicine Adolescent Medicine; Visit Provider Internal Medicine Adolescent Medicine
DX: Z51.81 Encounter for therapeutic drug level monitoring (principal); Z79.01 Long term (current) use of anticoagulants; Z95.2 Presence of prosthetic heart valve
CPT/HCPCS: 85610; 99211; G0463

== ENCOUNTER 2019-10-17 14:27 | Outpatient (CLI) | payer MEDICARE, OTHER, SELFPAY ==
[2019-10-17 15:04] LABS: PHA INR Fingerstick 2.5 (0.9-1.1)
== END 2019-10-17 15:05 | disposition home or self-care (01) ==
LOC: ACC 14:29
PROVIDERS: PCP Nurse Practitioner Family; Visit Provider Nurse Practitioner Family
DX: Z51.81 Encounter for therapeutic drug level monitoring (principal); Z79.01 Long term (current) use of anticoagulants; Z95.2 Presence of prosthetic heart valve
CPT/HCPCS: 85610; 99211; G0463

== ENCOUNTER 2019-11-27 14:26 | Outpatient (CLI) | payer MEDICARE, OTHER, SELFPAY ==
[2019-11-27 15:58] LABS: PHA INR Fingerstick 2.5 (0.9-1.1)
== END 2019-11-27 16:08 | disposition home or self-care (01) ==
LOC: ACC 14:27
PROVIDERS: PCP Internal Medicine Adolescent Medicine; Visit Provider Internal Medicine Adolescent Medicine
DX: Z51.81 Encounter for therapeutic drug level monitoring (principal); Z79.01 Long term (current) use of anticoagulants; Z95.2 Presence of prosthetic heart valve
CPT/HCPCS: 85610; 99211; G0463

== ENCOUNTER 2020-01-24 13:57 | Outpatient (CLI) | payer MEDICARE, OTHER, SELFPAY ==
[2020-01-24 14:06] VITALS: BP 126/86; PULSE 89; RESP 18; TEMP 36.6; O2SAT 98
[2020-01-24 14:26] VITALS: BP 124/79; PULSE 85; RESP 18; TEMP 36.6; O2SAT 98
== END 2020-01-24 14:30 | disposition home or self-care (01) ==
PROVIDERS: PCP Internal Medicine Adolescent Medicine; Visit Provider Internal Medicine Adolescent Medicine
DX: Z51.81 Encounter for therapeutic drug level monitoring (principal); Z79.01 Long term (current) use of anticoagulants; M81.0 Age-related osteoporosis without current pathological fracture
CPT/HCPCS: 96372; 99211; G0463; J0897

== ENCOUNTER 2020-03-12 14:23 | Outpatient (CLI) | payer MEDICARE, OTHER, SELFPAY ==
[2020-03-12 15:01] LABS: PHA INR Fingerstick 2.5 (0.9-1.1)
== END 2020-03-12 15:14 | disposition home or self-care (01) ==
LOC: ACC 14:26
PROVIDERS: PCP Internal Medicine Adolescent Medicine; Visit Provider Internal Medicine Adolescent Medicine
DX: Z51.81 Encounter for therapeutic drug level monitoring (principal); Z79.01 Long term (current) use of anticoagulants; Z95.2 Presence of prosthetic heart valve
CPT/HCPCS: 85610; 99211; G0463

== ENCOUNTER 2020-04-23 14:21 | Outpatient (CLI) | payer MEDICARE, OTHER, SELFPAY ==
[2020-04-23 15:44] LABS: PHA INR Fingerstick 2.1 (0.9-1.1)
== END 2020-04-23 15:58 | disposition home or self-care (01) ==
LOC: ACC 14:22
PROVIDERS: PCP Internal Medicine Adolescent Medicine; Visit Provider Internal Medicine Adolescent Medicine
DX: Z79.01 Long term (current) use of anticoagulants (principal); Z51.81 Encounter for therapeutic drug level monitoring; Z95.2 Presence of prosthetic heart valve
CPT/HCPCS: 85610; 99211; G0463

== ENCOUNTER → 2020-04-24 12:37 | Outpatient (CLI) | payer MEDICARE, OTHER, SELFPAY ==
[2020-04-24 13:09] LABS: Basophils # 0.1 K/mm3 (0-0.2); Basophils % 1.2 % (0.1-2.0); Eosinophils # 0.1 K/mm3 (0.0-0.4); Eosinophils % 1.7 % (0.1-12.0); Hematocrit 44.8 % (37.0-47.0); Lymphocytes # 2.8 K/mm3 (0.7-4.5); Lymphocytes % 35.8 % (10-50); Mean Corpuscular HGB Conc 33.5 g/dL (31.8-35.4); Mean Corpuscular Hemoglobin 31.5 pg (27.0-31.2); Mean Corpuscular Volume 94.3 fl (81-99); Mean Platelet Volume 7.3 fl (7.4-10.4); Monocytes # 0.5 K/mm3 (0.1-1.0); Neutrophils # 4.4 K/mm3 (1.8-7.8); Neutrophils % 55.2 % (37.0-80.0); Platelet Count 253 K/mm3 (142-424); Red Blood Count 4.75 M/mm3 (4.20-5.40); Red Cell Distribution Width 13.2 % (11.5-17.5); White Blood Count 7.9 K/mm3 (4.8-10.8)
[2020-04-24 13:51] LABS: Alanine Aminotransferase 24 U/L (12-78); Albumin Level 4.1 g/dl (3.5-5.0); Albumin/Globulin Ratio 1.4 (1.1-1.8); Alkaline Phosphatase 88 U/L (38-126); Anion Gap 12.2 mEq/L (5-15); Aspartate Amino Transferase 36 U/L (14-36); Bilirubin,Total 0.4 mg/dl (0.2-1.3); Blood Urea Nitrogen 11 mg/dl (7-17); Calcium 8.8 mg/dl (8.4-10.2); Carbon Dioxide 27 mmol/L (22.0-30.0); Chloride 101 mmol/L (98-107); Chol/HDL Ratio 3.5 (1-3.5); Cholesterol 176 mg/dl (140-200); Estimated Glomerular Filt Rate 81 ml/min (>60); GFR (African American) 97 ML/MIN (>60); Globulin 2.9 g/dL (1.3-3.2); Glucose 108 mg/dl (74-100); HDL Cholesterol 50 mg/dl (40-60); Potassium 4.2 mmoL/L (3.5-5.1); Sodium 136 mmol/L (136-145); Triglycerides 113 mg/dl (30-150); VLDL Cholesterol 23 mg/dL (0-40)
[2020-04-24 13:57] LABS: Hemoglobin A1C 6.3 % (4.0-6.0)
[2020-04-24 14:02] LABS: Direct LDL Cholesterol 101.97 mg/dL (100-129)
[2020-04-24 14:07] LABS: 25-OH Vitamin D, Total 34.4 ng/mL (30-100)
== END ==
PROVIDERS: Visit Provider Nurse Practitioner Family
DX: I10 Essential (primary) hypertension (principal); R73.03 Prediabetes; I35.9 Nonrheumatic aortic valve disorder, unspecified; M81.0 Age-related osteoporosis without current pathological fracture
CPT/HCPCS: 36415; 80053; 80061; 82306; 83036; 85025

== ENCOUNTER 2020-05-14 14:27 | Outpatient (CLI) | payer MEDICARE, OTHER, SELFPAY ==
[2020-05-14 15:03] LABS: PHA INR Fingerstick 2.7 (0.9-1.1)
== END 2020-05-14 15:05 | disposition home or self-care (01) ==
LOC: ACC 14:28
PROVIDERS: PCP Internal Medicine Adolescent Medicine; Visit Provider Internal Medicine Adolescent Medicine
DX: Z51.81 Encounter for therapeutic drug level monitoring (principal); Z79.01 Long term (current) use of anticoagulants; Z95.2 Presence of prosthetic heart valve
CPT/HCPCS: 85610; 99211; G0463

== ENCOUNTER 2020-06-23 14:41 | Outpatient (CLI) | payer MEDICARE, OTHER, SELFPAY ==
[2020-06-23 15:54] LABS: PHA INR Fingerstick 2.6 (0.9-1.1)
== END 2020-06-23 15:56 | disposition home or self-care (01) ==
LOC: ACC 14:42
PROVIDERS: PCP Internal Medicine Adolescent Medicine; Visit Provider Internal Medicine Adolescent Medicine
DX: Z51.81 Encounter for therapeutic drug level monitoring (principal); Z79.01 Long term (current) use of anticoagulants; Z95.2 Presence of prosthetic heart valve
CPT/HCPCS: 85610; 99211; G0463

== ENCOUNTER 2020-07-30 13:18 | Outpatient (CLI) | payer MEDICARE, OTHER, SELFPAY ==
--- NOTE | 2020-07-30 13:25 | XR_ITS ---
PROCEDURE: XR DEXA AXIAL SKELETON CLINICAL HISTORY: POST-MENOPAUSAL COMPARISON: CR DEXAAX XR DEXA axial skeleton from 05/02/2018 FINDINGS: The right hip BMD is 0.724 with a T-score of -1.1. The left hip BMD is 0.700 with a T-score of -1.3. The lumbar spine BMD is 0.930 with a T-score of -1.1. Previously the lowest density was in the lumbar spine with a T-score of- 1.9 IMPRESSION: This patient is considered osteopenic according to the World Health Organization criteria. Bone density is between 10 and 25 percent below young normal. Fracture risk is moderate. Treatment is advised. Based on these results a follow-up exam is recommended in 2 year. Dictated by: Delfino Gandara MD 07/30/2020 18:47 Delfino Gandara MD in [place] 07/30/2020 18:47
[2020-07-30 14:34] LABS: PHA INR Fingerstick 3.7 (0.9-1.1)
== END 2020-07-30 14:46 | disposition home or self-care (01) ==
LOC: RAD 13:21
PROVIDERS: PCP Nurse Practitioner Family; Visit Provider Internal Medicine Adolescent Medicine
DX: Z13.820 Encounter for screening for osteoporosis (principal); Z78.0 Asymptomatic menopausal state; Z51.81 Encounter for therapeutic drug level monitoring; Z79.01 Long term (current) use of anticoagulants
CPT/HCPCS: 77080; 85610; 99211; G0463

== ENCOUNTER 2020-09-02 14:00 | Outpatient (CLI) | payer MEDICARE, OTHER, SELFPAY ==
[2020-09-02 15:00] LABS: PHA INR Fingerstick 2.8 (0.9-1.1)
== END 2020-09-02 15:21 | disposition home or self-care (01) ==
LOC: ACC 14:02
PROVIDERS: PCP Internal Medicine Adolescent Medicine; Visit Provider Internal Medicine Adolescent Medicine
DX: Z51.81 Encounter for therapeutic drug level monitoring (principal); Z79.01 Long term (current) use of anticoagulants
CPT/HCPCS: 85610; 99211; G0463

== ENCOUNTER 2020-09-18 13:55 | Outpatient (CLI) | payer MEDICARE, OTHER, SELFPAY ==
[2020-09-18 15:30] LABS: PHA INR Fingerstick 2.1 (0.9-1.1)
== END 2020-09-18 15:32 | disposition home or self-care (01) ==
LOC: ACC 13:58
PROVIDERS: PCP Nurse Practitioner Family; Visit Provider Internal Medicine Adolescent Medicine
DX: Z51.81 Encounter for therapeutic drug level monitoring (principal); Z79.01 Long term (current) use of anticoagulants; Z95.2 Presence of prosthetic heart valve
CPT/HCPCS: 85610; 99211; G0463

== ENCOUNTER 2020-10-21 14:23 | Outpatient (CLI) | payer MEDICARE, OTHER, SELFPAY ==
[2020-10-21 17:35] LABS: INR 6.32 (0.9-1.1); Prothrombin Time 59.3 seconds (9.4-11.8)
[2020-10-22 11:25] LABS: PHA INR Fingerstick 4.7 (0.9-1.1)
== END 2020-10-21 16:00 | disposition home or self-care (01) ==
PROVIDERS: PCP Internal Medicine Adolescent Medicine; Visit Provider Internal Medicine Adolescent Medicine
DX: Z51.81 Encounter for therapeutic drug level monitoring (principal); Z79.01 Long term (current) use of anticoagulants; Z95.2 Presence of prosthetic heart valve
CPT/HCPCS: 36415; 85610; 99211; G0463

== ENCOUNTER 2020-10-26 14:25 | Outpatient (CLI) | payer MEDICARE, OTHER, SELFPAY ==
[2020-10-26 15:41] LABS: PHA INR Fingerstick 2.3 (0.9-1.1)
== END 2020-10-26 15:55 | disposition home or self-care (01) ==
LOC: ACC 14:26
PROVIDERS: PCP Internal Medicine Adolescent Medicine; Visit Provider Internal Medicine Adolescent Medicine
DX: Z51.81 Encounter for therapeutic drug level monitoring (principal); Z79.01 Long term (current) use of anticoagulants; Z95.2 Presence of prosthetic heart valve
CPT/HCPCS: 85610; 99211; G0463

== ENCOUNTER 2020-11-05 14:25 | Outpatient (CLI) | payer MEDICARE, OTHER, SELFPAY ==
[2020-11-05 15:52] LABS: PHA INR Fingerstick 3.5 (0.9-1.1)
== END 2020-11-05 15:57 | disposition home or self-care (01) ==
LOC: ACC 14:27
PROVIDERS: PCP Nurse Practitioner Family; Visit Provider Internal Medicine Adolescent Medicine
DX: Z51.81 Encounter for therapeutic drug level monitoring (principal); Z79.01 Long term (current) use of anticoagulants; Z95.2 Presence of prosthetic heart valve
CPT/HCPCS: 85610; 99211; G0463

== ENCOUNTER 2020-11-17 13:43 | Outpatient (CLI) | payer MEDICARE, OTHER, SELFPAY ==
[2020-11-17 15:20] LABS: PHA INR Fingerstick 3.3 (0.9-1.1)
== END 2020-11-17 15:27 | disposition home or self-care (01) ==
LOC: ACC 13:44
PROVIDERS: PCP Internal Medicine Adolescent Medicine; Visit Provider Internal Medicine Adolescent Medicine
DX: Z51.81 Encounter for therapeutic drug level monitoring (principal); Z79.01 Long term (current) use of anticoagulants
CPT/HCPCS: 85610; 99211; G0463

== ENCOUNTER 2020-12-01 14:08 | Outpatient (CLI) | payer MEDICARE, OTHER, SELFPAY ==
[2020-12-01 15:55] LABS: INR 4.73 (0.9-1.1); Prothrombin Time 49.7 seconds (10.1-12.5)
[2020-12-01 16:09] LABS: PHA INR Fingerstick 4.4 (0.9-1.1)
== END 2020-12-01 16:11 | disposition home or self-care (01) ==
PROVIDERS: PCP Internal Medicine Adolescent Medicine; Visit Provider Internal Medicine Adolescent Medicine
DX: Z51.81 Encounter for therapeutic drug level monitoring (principal); Z79.01 Long term (current) use of anticoagulants; Z95.2 Presence of prosthetic heart valve
CPT/HCPCS: 36415; 85610; 99211; G0463

== ENCOUNTER 2020-12-08 14:20 | Outpatient (CLI) | payer MEDICARE, OTHER, SELFPAY ==
[2020-12-08 15:30] LABS: PHA INR Fingerstick 2.6 (0.9-1.1)
== END 2020-12-08 15:34 | disposition home or self-care (01) ==
LOC: ACC 14:22
PROVIDERS: PCP Internal Medicine Adolescent Medicine; Visit Provider Internal Medicine Adolescent Medicine
DX: Z51.81 Encounter for therapeutic drug level monitoring (principal); Z79.01 Long term (current) use of anticoagulants; Z95.2 Presence of prosthetic heart valve
CPT/HCPCS: 85610; 99211; G0463

== ENCOUNTER 2020-12-17 14:22 | Outpatient (CLI) | payer MEDICARE, OTHER, SELFPAY ==
[2020-12-17 15:23] LABS: PHA INR Fingerstick 2.9 (0.9-1.1)
== END 2020-12-17 15:25 | disposition home or self-care (01) ==
LOC: ACC 14:23
PROVIDERS: PCP Internal Medicine Adolescent Medicine; Visit Provider Internal Medicine Adolescent Medicine
DX: Z51.81 Encounter for therapeutic drug level monitoring (principal); Z79.01 Long term (current) use of anticoagulants
CPT/HCPCS: 85610; 99211; G0463

== ENCOUNTER 2021-01-28 14:03 | Outpatient (CLI) | payer MEDICARE, OTHER, SELFPAY ==
[2021-01-28 13:55] VITALS: BP 134/70; PULSE 79; RESP 18; TEMP 36.3; O2SAT 98
[2021-01-28 14:10] VITALS: BP 130/69; PULSE 74; RESP 18; TEMP 36.3; O2SAT 98
[2021-01-28 15:18] LABS: Prothrombin Time 44.4 seconds (10.1-12.5)
[2021-01-28 15:31] LABS: INR 4.18 (0.9-1.1)
[2021-01-28 15:59] LABS: PHA INR Fingerstick 4.4 (0.9-1.1)
== END 2021-01-28 14:12 | disposition home or self-care (01) ==
PROVIDERS: PCP Internal Medicine Adolescent Medicine; Visit Provider Internal Medicine Adolescent Medicine
DX: Z51.81 Encounter for therapeutic drug level monitoring (principal); Z79.01 Long term (current) use of anticoagulants; Z95.2 Presence of prosthetic heart valve; M85.89 Other specified disorders of bone density and structure, multiple sites
CPT/HCPCS: 36415; 85610; 96372; 99211; G0463; J0897

== ENCOUNTER 2021-02-09 14:59 | Outpatient (CLI) | payer MEDICARE, OTHER, SELFPAY ==
[2021-02-09 15:55] LABS: PHA INR Fingerstick 2.4 (0.9-1.1)
== END 2021-02-09 16:03 | disposition home or self-care (01) ==
LOC: ACC 15:03
PROVIDERS: PCP Internal Medicine Adolescent Medicine; Visit Provider Internal Medicine Adolescent Medicine
DX: Z51.81 Encounter for therapeutic drug level monitoring (principal); Z79.01 Long term (current) use of anticoagulants
CPT/HCPCS: 85610; 99211; G0463

== ENCOUNTER 2021-03-11 14:52 | Outpatient (CLI) | payer MEDICARE, OTHER, SELFPAY ==
[2021-03-11 15:38] LABS: PHA INR Fingerstick 2.3 (0.9-1.1)
== END 2021-03-11 15:40 | disposition home or self-care (01) ==
LOC: ACC 14:55
PROVIDERS: PCP Internal Medicine Adolescent Medicine; Visit Provider Nurse Practitioner Family
DX: Z51.81 Encounter for therapeutic drug level monitoring (principal); Z79.01 Long term (current) use of anticoagulants; Z95.2 Presence of prosthetic heart valve
CPT/HCPCS: 85610; 99211; G0463

== ENCOUNTER 2021-04-09 12:55 | Outpatient (CLI) | payer MEDICARE, OTHER, SELFPAY ==
[2021-04-09 13:56] LABS: PHA INR Fingerstick 2.8 (0.9-1.1)
== END 2021-04-09 14:04 | disposition home or self-care (01) ==
LOC: ACC 12:56
PROVIDERS: PCP Nurse Practitioner Family; Visit Provider Internal Medicine Adolescent Medicine
DX: Z51.81 Encounter for therapeutic drug level monitoring (principal); Z79.01 Long term (current) use of anticoagulants
CPT/HCPCS: 85610; 99211; G0463

== ENCOUNTER 2021-04-19 13:49 | Outpatient (CLI) | payer MEDICARE, OTHER, SELFPAY ==
[2021-04-19 15:41] LABS: PHA INR Fingerstick 2.6 (0.9-1.1)
== END 2021-04-19 15:53 | disposition home or self-care (01) ==
LOC: ACC 13:50
PROVIDERS: PCP Internal Medicine Adolescent Medicine; Visit Provider Internal Medicine Adolescent Medicine
DX: Z51.81 Encounter for therapeutic drug level monitoring (principal); Z79.01 Long term (current) use of anticoagulants
CPT/HCPCS: 85610; 99211; G0463

== ENCOUNTER → 2021-05-18 16:34 | Outpatient (CLI) | payer MEDICARE, OTHER, SELFPAY ==
[2021-05-18 17:09] LABS: Basophils # 0.1 K/mm3 (0-0.2); Basophils % 1.2 % (0.1-2.0); Eosinophils # 0.2 K/mm3 (0.0-0.4); Hematocrit 44.7 % (37.0-47.0); Hemoglobin 14.6 g/dL (12.2-16.2); Lymphocytes % 41.6 % (10-50); Mean Corpuscular HGB Conc 32.6 g/dL (31.8-35.4); Mean Corpuscular Hemoglobin 30.9 pg (27.0-31.2); Mean Corpuscular Volume 94.7 fl (81-99); Mean Platelet Volume 8.4 fl (7.4-10.4); Monocytes # 0.6 K/mm3 (0.1-1.0); Monocytes % 5.9 % (1.7-9.3); Neutrophils # 4.8 K/mm3 (1.8-7.8); Neutrophils % 49.4 % (37.0-80.0); Platelet Count 294 K/mm3 (142-424); Red Blood Count 4.72 M/mm3 (4.20-5.40); Red Cell Distribution Width 13.8 % (11.5-17.5); White Blood Count 9.6 K/mm3 (4.8-10.8)
[2021-05-18 18:34] LABS: Alanine Aminotransferase 29 U/L (12-78); Albumin Level 3.8 g/dl (3.5-5.0); Albumin/Globulin Ratio 1.3 (1.1-1.8); Alkaline Phosphatase 104 U/L (38-126); Anion Gap 13.1 mEq/L (5-15); Aspartate Amino Transferase 35 U/L (14-36); Bilirubin,Total 0.3 mg/dl (0.2-1.3); Blood Urea Nitrogen 13 mg/dl (7-17); Calcium 8.7 mg/dl (8.4-10.2); Carbon Dioxide 30 mmol/L (22.0-30.0); Chloride 101 mmol/L (98-107); Chol/HDL Ratio 3.8 (1-3.5); Cholesterol 157 mg/dl (140-200); Estimated Glomerular Filt Rate 80 ml/min (>60); GFR (African American) 97 ML/MIN (>60); Glucose 148 mg/dl (74-100); HDL Cholesterol 41 mg/dl (40-60); Potassium 4.1 mmoL/L (3.5-5.1); Sodium 140 mmol/L (136-145); Total Protein,Serum 6.8 g/dl (6.3-8.2); Triglycerides 168 mg/dl (30-150); VLDL Cholesterol 34 mg/dL (0-40)
[2021-05-18 18:51] LABS: 25-OH Vitamin D, Total 31.8 ng/mL (30-100)
[2021-05-18 21:30] LABS: Hemoglobin A1C 6.5 % (4.0-6.0)
== END ==
PROVIDERS: Visit Provider Nurse Practitioner Family
DX: I10 Essential (primary) hypertension (principal); R73.03 Prediabetes; M81.0 Age-related osteoporosis without current pathological fracture; Z95.2 Presence of prosthetic heart valve
CPT/HCPCS: 36415; 80053; 80061; 82306; 83036; 85025

== ENCOUNTER 2021-06-08 13:54 | Outpatient (CLI) | payer MEDICARE, OTHER, SELFPAY ==
[2021-06-08 16:01] LABS: PHA INR Fingerstick 2.5 (0.9-1.1)
== END 2021-06-08 16:03 | disposition home or self-care (01) ==
LOC: ACC 13:56
PROVIDERS: PCP Nurse Practitioner Family; Visit Provider Internal Medicine Adolescent Medicine
DX: Z51.81 Encounter for therapeutic drug level monitoring (principal); Z79.01 Long term (current) use of anticoagulants; Z95.2 Presence of prosthetic heart valve
CPT/HCPCS: 85610; 99211; G0463

== ENCOUNTER 2021-07-27 14:54 | Outpatient (CLI) | payer MEDICARE, OTHER, SELFPAY | END 2021-07-27 16:38 | disposition home or self-care (01) | LOC: ACC 14:55 | PROVIDERS: PCP Internal Medicine Adolescent Medicine; Visit Provider Internal Medicine Adolescent Medicine | DX: Z51.81 Encounter for therapeutic drug level monitoring (principal); Z79.01 Long term (current) use of anticoagulants | CPT/HCPCS: 85610; 99211; G0463 ==

== ENCOUNTER 2021-09-07 15:05 | Outpatient (CLI) | payer MEDICARE, OTHER, SELFPAY ==
[2021-09-07 15:56] LABS: PHA INR Fingerstick 3.1 (0.9-1.1)
== END 2021-09-07 15:58 | disposition home or self-care (01) ==
LOC: ACC 15:07
PROVIDERS: PCP Internal Medicine Adolescent Medicine; Visit Provider Internal Medicine Adolescent Medicine
DX: Z51.81 Encounter for therapeutic drug level monitoring (principal); Z79.01 Long term (current) use of anticoagulants; Z95.2 Presence of prosthetic heart valve
CPT/HCPCS: 85610; 99211; G0463

== ENCOUNTER 2021-10-21 15:18 | Outpatient (CLI) | payer MEDICARE, OTHER, SELFPAY ==
[2021-10-21 16:11] LABS: PHA INR Fingerstick 3.1 (0.9-1.1)
== END 2021-10-21 16:13 | disposition home or self-care (01) ==
LOC: ACC 15:20
PROVIDERS: PCP Nurse Practitioner Family; Visit Provider Internal Medicine Adolescent Medicine
DX: Z51.81 Encounter for therapeutic drug level monitoring (principal); Z79.01 Long term (current) use of anticoagulants; Z95.2 Presence of prosthetic heart valve
CPT/HCPCS: 85610; 99211; G0463

== ENCOUNTER 2021-12-07 15:10 | Outpatient (CLI) | payer MEDICARE, OTHER, SELFPAY ==
[2021-12-07 16:18] LABS: PHA INR Fingerstick 2.7 (0.9-1.1)
== END 2021-12-07 16:21 | disposition home or self-care (01) ==
LOC: ACC 15:12
PROVIDERS: PCP Nurse Practitioner Family; Visit Provider Internal Medicine Adolescent Medicine
DX: Z51.81 Encounter for therapeutic drug level monitoring (principal); Z79.01 Long term (current) use of anticoagulants
CPT/HCPCS: 85610; 99211; G0463

== ENCOUNTER 2022-01-18 15:00 | Outpatient (CLI) | payer MEDICARE, OTHER, SELFPAY | END 2022-01-18 15:46 | disposition home or self-care (01) | LOC: ACC 15:02 | PROVIDERS: PCP Pharmacist; Visit Provider Internal Medicine Adolescent Medicine | DX: Z51.81 Encounter for therapeutic drug level monitoring (principal); Z79.01 Long term (current) use of anticoagulants; Z95.2 Presence of prosthetic heart valve | CPT/HCPCS: 85610; 99211; G0463 ==

== ENCOUNTER 2022-03-10 14:59 | Outpatient (CLI) | payer MEDICARE, OTHER, SELFPAY ==
[2022-03-10 15:23] LABS: PHA INR Fingerstick 3.4 (0.9-1.1)
== END 2022-03-10 15:25 | disposition home or self-care (01) ==
LOC: ACC 15:00
PROVIDERS: PCP Internal Medicine Adolescent Medicine; Visit Provider Internal Medicine Adolescent Medicine
DX: Z51.81 Encounter for therapeutic drug level monitoring (principal); Z79.01 Long term (current) use of anticoagulants; Z95.2 Presence of prosthetic heart valve
CPT/HCPCS: 85610; 99211; G0463

== ENCOUNTER 2022-04-21 15:09 | Outpatient (CLI) | payer MEDICARE, OTHER, SELFPAY ==
[2022-04-21 15:53] LABS: PHA INR Fingerstick 2.8 (0.9-1.1)
== END 2022-04-21 15:57 | disposition home or self-care (01) ==
LOC: ACC 15:10
PROVIDERS: PCP Internal Medicine Adolescent Medicine; Visit Provider Internal Medicine Adolescent Medicine
DX: Z51.81 Encounter for therapeutic drug level monitoring (principal); Z79.01 Long term (current) use of anticoagulants; Z95.2 Presence of prosthetic heart valve
CPT/HCPCS: 85610; 99211; G0463

== ENCOUNTER 2022-06-06 14:56 | Outpatient (CLI) | payer MEDICARE, OTHER, SELFPAY ==
[2022-06-06 15:54] LABS: PHA INR Fingerstick 2.9 (0.9-1.1)
== END 2022-06-06 16:18 ==
LOC: ACC 14:56
PROVIDERS: PCP Internal Medicine Adolescent Medicine; Visit Provider Internal Medicine Adolescent Medicine
DX: Z51.81 Encounter for therapeutic drug level monitoring (principal); Z79.01 Long term (current) use of anticoagulants; Z95.2 Presence of prosthetic heart valve
CPT/HCPCS: 85610; 99211; G0463

== ENCOUNTER 2022-07-25 14:47 | Outpatient (CLI) | payer MEDICARE, OTHER, SELFPAY | END 2022-07-25 15:19 | LOC: ACC 14:48 | PROVIDERS: PCP Internal Medicine Adolescent Medicine; Visit Provider Internal Medicine Adolescent Medicine | DX: Z51.81 Encounter for therapeutic drug level monitoring (principal); Z79.01 Long term (current) use of anticoagulants | CPT/HCPCS: 85610; 99211; G0463 ==

== ENCOUNTER 2022-08-22 13:16 | Inpatient (IN) | payer MEDICARE, OTHER, SELFPAY ==
[2022-08-22] VITALS (11 sets, daily range): BP systolic 100–154; BP diastolic 42–98; PULSE 55–66; RESP 18–20; TEMP 36.7; O2SAT 88–94; BMI 30.9
--- NOTE | 2022-08-22 14:48 | PC.NURSE ---
pt to triage to check her vitals
--- NOTE | 2022-08-22 14:55 | XR_ITS ---
PROCEDURE INFORMATION: Exam: XR Chest Exam date and time: 08/22/2022 3:12 PM Age: 81 years old Clinical indication: Shortness of breath; Additional info: SOA; Cough TECHNIQUE: Imaging protocol: Radiologic exam of the chest. Views: 1 view. COMPARISON: CR XR CHEST PORTABLE 11/08/2019 1:45 PM FINDINGS: Lungs: There are fine bibasilar interstitial/ground-glass opacities mid to lower lung zones that have developed with decreased lung volumes suspicious for idiopathic interstitial lung disease which would be better assessed on CT exam of the chest. Pleural spaces: Unremarkable. No pleural effusion. No pneumothorax. Heart/Mediastinum: Cardiac silhouette is stable, borderline enlarged. There are pacemaker wires now present extending into the right atrium and right ventricle. Bones/joints: Patient has undergone prior median sternotomy otherwise osseous structures are unremarkable. IMPRESSION: Findings suspicious for idiopathic interstitial lung disease involving the mid to lower lung zones which could be better assessed on CT exam of the chest.
--- NOTE | 2022-08-22 14:57 | PC.NURSE ---
pt 85-88% on RA, placed on 2 liters NC
--- NOTE | 2022-08-22 14:57 | PC.NURSE ---
Daughter at BS
[2022-08-22 15:08] LABS: Coronavirus 19, PCR Not Detected (NotDetected); Influenza A, PCR Not Detected (NotDetected); Influenza B, PCR Not Detected (NotDetected)
--- NOTE | 2022-08-22 16:51 | PC.NURSE ---
#20 PLACED IN LEFT FA. PATIENT COUGHING UP TREVINO SPUTUM. GAVE PATIENT SPECIMEN CUP AND INSTRUCTED HER THAT IF SHE WAS ABLE TO PRODUCE ANOTHER SAMPLE TO LET US KNOW.
--- NOTE | 2022-08-22 17:02 | PC.NURSE ---
some labs were obtained and sent to lab, called for a hatchery laborer to come draw the rest of labs since unsuccessful
--- NOTE | 2022-08-22 17:32 | CT_ITS ---
PROCEDURE INFORMATION: Exam: CTA Abdomen and Pelvis With Contrast Exam date and time: 08/22/2022 7:15 PM Age: 81 years old Clinical indication: Injury or trauma; Fall; Blunt trauma; Lower abdominal or back area; Left; Additional info: Fall on warfarin TECHNIQUE: Imaging protocol: Computed tomographic angiography of the abdomen and pelvis with contrast. 3D rendering (Not supervised by radiologist): MIP and/or 3D reconstructed images were created by the technologist. Radiation optimization: All CT scans at this facility use at least one of these dose optimization techniques: automated exposure control; mA and/or kV adjustment per patient size (includes targeted exams where dose is matched to clinical indication); or iterative reconstruction. Contrast material: ISOVUE 370; Contrast volume: 100 ml; Contrast route: INTRAVENOUS (IV); COMPARISON: CR XR CHEST PORTABLE 08/22/2022 3:12 PM FINDINGS: Aorta: Mild atherosclerotic changes of the abdominal aorta. No aortic aneurysm or evidence of aortic dissection. Celiac trunk and mesenteric arteries: No occlusion or significant stenosis. Renal arteries: No occlusion or significant stenosis. Right iliac arteries: No occlusion or significant stenosis. Left iliac arteries: No occlusion or significant stenosis. Liver: Liver is mildly enlarged with diffuse fatty infiltration present. Gallbladder and bile ducts: Gallbladder has been removed. Bile ducts are not appreciably dilated. Pancreas: Unremarkable. Main pancreatic duct is not significantly dilated. Spleen: Unremarkable. No splenomegaly. Adrenal glands: Unremarkable. No mass. Kidneys and ureters: Unremarkable. No solid mass. No hydronephrosis. Stomach and bowel: There are multiple diverticuli sigmoid colon without evidence of diverticulitis. Appendix: No evidence of appendicitis. Intraperitoneal space: Unremarkable. No free air. No significant fluid collection. Lymph nodes: Unremarkable. No enlarged lymph nodes. Urinary bladder: Unremarkable. No mass. Reproductive: Uterus has been removed. Bones/joints: No acute fracture. Soft tissues: Unremarkable. IMPRESSION: 1. Unremarkable CT angiogram of the abdomen and pelvis. 2. No acute abdominal pathology. 3. Sigmoid diverticulosis. No evidence of acute diverticulitis. 4. Mild hepatomegaly with diffuse fatty infiltration.
--- NOTE | 2022-08-22 17:32 | CT_ITS ---
PROCEDURE INFORMATION: Exam: CTA Chest With Contrast Exam date and time: 08/22/2022 7:15 PM Age: 81 years old Clinical indication: Chest wall pain and left-sided; Additional info: Fall on warfarin, L linferior thoracic cage pain TECHNIQUE: Imaging protocol: Computed tomographic angiography of the chest with contrast. 3D rendering (Not supervised by radiologist): MIP and/or 3D reconstructed images were created by the technologist. Radiation optimization: All CT scans at this facility use at least one of these dose optimization techniques: automated exposure control; mA and/or kV adjustment per patient size (includes targeted exams where dose is matched to clinical indication); or iterative reconstruction. Contrast material: ISOVUE 370; Contrast volume: 100 ml; Contrast route: INTRAVENOUS (IV); COMPARISON: CR XR CHEST PORTABLE 08/22/2022 3:12 PM FINDINGS: Tubes, catheters and devices: There are pacemaker wires extending into the right atrium right ventricle. Evidence of previous aortic valve repair. No significant calcification of coronary arteries. No significant pericardial effusion. Pulmonary arteries: Pulmonary vasculature is adequately opacified without filling defects or other evidence of acute pulmonary embolism. Aorta: Thoracic aorta is unremarkable. No aortic aneurysm or evidence of dissection. Lungs: Diffuse bronchiolitis both lung myers likely infectious in nature with superimposed scattered areas of consolidation within the lower lung zones likely representing combination of atelectasis and pneumonia. Pleural spaces: Unremarkable. No pneumothorax. No pleural effusion. Heart: Heart is mildly enlarged. Lymph nodes: Mild mediastinal and right hilar lymphadenopathy, nonspecific. Diaphragm: Small hiatal hernia. Bones/joints: Unremarkable. No acute fracture. Soft tissues: Unremarkable. IMPRESSION: 1. Negative CT angiogram of the chest. No evidence of acute pulmonary embolism. 2. Diffuse bronchiolitis both lung myers likely infectious in nature with superimposed scattered areas of consolidation lower lung zones likely representing combination of multifocal pneumonia and atelectasis. Continued follow-up advised. 3. Mild mediastinal and right hilar lymphadenopathy, nonspecific, possibly reactive in nature. Recommend a repeat CT chest in 3 months for continued surveillance. 4. Mild cardiomegaly
--- NOTE | 2022-08-22 17:32 | CT_ITS ---
PROCEDURE INFORMATION: Exam: CT Head Without Contrast Exam date and time: 08/22/2022 5:59 PM Age: 81 years old Clinical indication: Injury or trauma; Fall; Blunt trauma (contusions or hematomas); Without loss of consciousness; Additional info: Fall on warfarin TECHNIQUE: Imaging protocol: Computed tomography of the head without contrast. Radiation optimization: All CT scans at this facility use at least one of these dose optimization techniques: automated exposure control; mA and/or kV adjustment per patient size (includes targeted exams where dose is matched to clinical indication); or iterative reconstruction. COMPARISON: No relevant prior studies available. FINDINGS: Brain: No intracranial hemorrhage. No mass effect, edema or midline shift. Cortical sulci are unremarkable for age. There are vague areas of decreased attenuation within the periventricular white matter likely secondary to chronic microvascular changes. Cerebral ventricles: No ventriculomegaly. Paranasal sinuses: Visualized sinuses are unremarkable. No fluid levels. Mastoid air cells: Visualized mastoid air cells are well aerated. Bones/joints: Unremarkable. No acute fracture. Soft tissues: Unremarkable. IMPRESSION: No acute intracranial abnormality.
--- NOTE | 2022-08-22 17:32 | CT_ITS ---
PROCEDURE INFORMATION: Exam: CT Cervical Spine Without Contrast Exam date and time: 08/22/2022 6:02 PM Age: 81 years old Clinical indication: Injury or trauma; Fall; Blunt trauma; Additional info: Fall on warfarin TECHNIQUE: Imaging protocol: Computed tomography of the cervical spine without contrast. Radiation optimization: All CT scans at this facility use at least one of these dose optimization techniques: automated exposure control; mA and/or kV adjustment per patient size (includes targeted exams where dose is matched to clinical indication); or iterative reconstruction. COMPARISON: CT HEAD/BRAIN WO CON 08/22/2022 5:59 PM FINDINGS: Bones/joints: Normal alignment. No fracture or traumatic subluxation. Disk spaces are maintained. No severe spinal canal stenosis. Lungs: Lung apices are normal. Soft tissues: Unremarkable. IMPRESSION: No acute findings.
--- NOTE | 2022-08-22 17:36 | PC.NURSE ---
AZAEL SINCLAIR at
--- NOTE | 2022-08-22 17:37 | XR_ITS ---
PROCEDURE INFORMATION: Exam: XR Left Tibia and Fibula Exam date and time: 08/22/2022 6:18 PM Age: 81 years old Clinical indication: Injury or trauma; Fall; Blunt trauma; Lower leg; Left TECHNIQUE: Imaging protocol: Radiologic exam of the Left tibia and fibula. Views: 2 views. COMPARISON: No relevant prior studies available. FINDINGS: Bones/joints: Osseous structures are intact. No fracture or malalignment. Visualized joint surfaces are preserved. Soft tissues: Unremarkable. IMPRESSION: Negative exam. No acute bony abnormalities.
--- NOTE | 2022-08-22 17:39 | HMH.EDGENADL ---
Discharge Plan Disposition Patient Disposition: Admitted As Inpatient Condition: Good Chief Complaint: Shortness of Breath/Dyspnea Prescriptions Prescriptions: No Action sucralfate 1 GM Tablet 1 g PO NEEDED PRN (Reason: STOMACH) omeprazole 40 MG Capsule.Dr 40 mg PO DAILY lisinopril 5 MG Tablet 2.5 mg PO DAILY rosuvastatin [Crestor] 5 MG Tablet 5 mg PO DAILY warfarin 5 MG Tablet 7.5 mg PO DIRECTED Rx Instructions: ///mon/mon escitalopram oxalate 20 MG Tablet 20 mg PO DAILY topiramate [Topamax] 50 MG Tablet 50 mg PO DAILY silver sulfadiazine 400 GM bottle 85 gm TP TID alprazolam 0.25 MG Tablet 0.25 mg PO BID trazodone 50 MG tablet 50 mg PO HS fexofenadine 180 MG tablet 180 mg PO DAILY Referrals Follow up/Referrals: Brian Flores MD [Primary Care Provider] - See instructions Clinical Impressions Clinical Impression: Pneumonia, Respiratory failure Discharge ED Provider: Burak Colby General Adult HPI General Chief complaint: Shortness of Breath/Dyspnea Stated complaint: [id number], Left side pain,cough Time Seen by Provider: 08/22/22 15:15 Mode of Arrival: Wheelchair Source of Information: Patient Limitations: No Limitations Description of Symptoms (Recalled from ER Triage Doc. by RN): pt reports she fell this morning, c/o L side and L upper arm pain. Pt also reporting a cough and feeling SOA. SaO2 88% on RA upon arrival to ED. History of Present Illness HPI narrative: Patient is a 81-year-old female with past medical history of pacemaker on warfarin who presents emergency department for evaluation of shortness of breath and a fall. History is obtained by family member at bedside, patient was reportedly diagnosed with a viral illness last week, COVID reportedly negative, throughout the week patient has had progressive cough, shortness of breath. Decreased p.o. intake, adequate urine output. Progressive diffuse weakness. Patient is normally ambulatory, is still ambulatory however shorter distances. Patient reportedly fell backwards onto her head without loss of consciousness this morning. They present here for continued evaluation. With respect to trauma patient is complaining of left tibia pain, left inferior thoracic cage pain. Related Data Home Medications Medication Instructions Recorded Confirmed escitalopram oxalate 20 mg tablet 20 mg PO DAILY Depression 10/24/17 01/28/21 lisinopril 5 mg tablet 2.5 mg PO DAILY BP 10/24/17 01/28/21 omeprazole 40 mg capsule,delayed 40 mg PO DAILY STOMACH 10/24/17 01/28/21 release rosuvastatin 5 mg tablet (Crestor) 5 mg PO DAILY CHL 10/24/17 01/28/21 sucralfate 1 gram tablet 1 g PO NEEDED PRN STOMACH 10/24/17 01/28/21 topiramate 50 mg tablet (Topamax) 50 mg PO DAILY Headache 10/24/17 01/28/21 warfarin 5 mg tablet 7.5 mg PO DIRECTED Blood thinner 10/24/17 01/28/21 alprazolam 0.25 mg tablet 0.25 mg PO BID Anxiety 04/26/18 01/28/21 fexofenadine 180 mg tablet 180 mg PO DAILY allergies 05/15/19 01/28/21 trazodone 50 mg tablet 50 mg PO HS sleep 05/15/19 01/28/21 silver sulfadiazine 1 % topical 85 gm TP TID burn 01/24/20 01/28/21 cream Allergies Allergy/AdvReac Type Severity Reaction Status Date / Time lithium Allergy Intermediate MAKES CRAZY Verified 01/28/21 14:40 fluticasone Allergy Mild DIZZY Verified 01/28/21 14:40 LIGHT HEADED hydrocodone [HYDROCODONE] Allergy Unknown Verified 01/28/21 14:40 hydromorphone AdvReac Intermediate WHEN GIVEN Verified 01/28/21 14:40 WITH PROMETHAZINE, PATIENT OVER SEDATED [facility] Disclaimer: The information contained in this section may have been updated after the patient was seen, as this information can be updated by other users. Social History Smoking Status: Never smoker alcohol intake: never current occupational status: retired Travel in the last 8 weeks: None h
--- NOTE | 2022-08-22 17:50 | PC.NURSE ---
ER MD is aware of pt in need new IV for CTAs that are ordered for pt. lab in ER to recollect blood on pt. ER MD aware pt labs are delayed r/t pt difficult IV stick. I have attemptd x3 sticks with ultrasound. Pt has and IV in wrist area but it would not draw for labs.
--- NOTE | 2022-08-22 17:52 | PC.NURSE ---
pt to CT via stretcher with mapping technician
--- NOTE | 2022-08-22 18:18 | HMH.ITSTN ---
CTA- chest and abd ordered by . Labs were not able to send due to not being able to get blood-- advised he said to over ride the lab protocol he wants scan without labs. I went to get patient she has an IV in wrist -- advised Nurse can not do CTA unless I have a bolus in the AC or higher IV is required. They are not able to get a line. Dr said he will use ultrasound and call when line is obtained
--- NOTE | 2022-08-22 18:50 | PC.NURSE ---
Scot, at BS checking on patient. he gave patient a warm blanket. Family at BS and have no needs
[2022-08-22 19:18] LABS: Alanine Aminotransferase 57 U/L (12-78); Albumin Level 3.8 g/dl (3.5-5.0); Alkaline Phosphatase 197 U/L (38-126); Anion Gap 15.2 mEq/L (5-15); Aspartate Amino Transferase 75 U/L (14-36); Bilirubin,Total 1.4 mg/dl (0.2-1.3); Blood Urea Nitrogen 27 mg/dl (7-17); Calcium 9.3 mg/dl (8.4-10.2); Carbon Dioxide 26 mmol/L (22.0-30.0); Chloride 89 mmol/L (98-107); Creatinine Clearance Estimated 60 mL/min (50-200); Estimated Glomerular Filt Rate 60 ml/min (>60); GFR (African American) 73 ML/MIN (>60); Glucose 116 mg/dl (74-100); Potassium 4.2 mmoL/L (3.5-5.1); Sodium 126 mmol/L (136-145); Total Protein,Serum 7.8 g/dl (6.3-8.2)
--- NOTE | 2022-08-22 19:27 | PC.NURSE ---
report given to maura,rn
--- NOTE | 2022-08-22 19:36 | PC.NURSE ---
Pt back in room from RAD via stretcher
[2022-08-22 19:37] LABS: Lactic Acid 2.2 mmol/L (0.7-2.1)
[2022-08-22 19:40] LABS: Basophils # 0.2 K/mm3 (0-0.2); Basophils % 0.7 % (0.1-2.0); Eosinophils % 0.1 % (0.1-12.0); Hematocrit 44.6 % (37.0-47.0); Hemoglobin 15.1 g/dL (12.2-16.2); Lymphocytes # 2.5 K/mm3 (0.7-4.5); Lymphocytes % 12.2 % (10-50); Mean Corpuscular HGB Conc 33.8 g/dL (31.8-35.4); Mean Corpuscular Hemoglobin 31.3 pg (27.0-31.2); Mean Corpuscular Volume 92.7 fl (81-99); Mean Platelet Volume 8.4 fl (7.4-10.4); Monocytes # 1.1 K/mm3 (0.1-1.0); Monocytes % 5.6 % (1.7-9.3); Neutrophils # 16.4 K/mm3 (1.8-7.8); Neutrophils % 81.3 % (37.0-80.0); Platelet Count 450 K/mm3 (142-424); Red Blood Count 4.82 M/mm3 (4.20-5.40); Red Cell Distribution Width 13.5 % (11.5-17.5); White Blood Count 20.2 K/mm3 (4.8-10.8)
[2022-08-22 19:42] LABS: MANUAL DIFFERENTIAL MANUAL DIFFERENTIAL (MANUAL DIFF)
--- NOTE | 2022-08-22 20:20 | PC.NURSE ---
RT at BS to administer breathing treatment
[2022-08-22 20:22] LABS: Lymphocytes % 15 % (10-50); Monocytes % 6 % (2-9); Neutrophils % 79 % (42-76); Total Cells Counted 100
[2022-08-22 20:23] LABS: Spherocytes 1+
[2022-08-22 20:24] LABS: Tear Drop Cells 1+
[2022-08-22 20:25] LABS: Platelet Estimate Normal; Polychromasia 1+
--- NOTE | 2022-08-22 22:18 | EXP.HP ---
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 History is obtained by family member at bedside, patient was reportedly diagnosed with a viral illness last week, COVID reportedly negative, throughout the week patient has had progressive cough, shortness of breath.? She reports having decreased p.o. intake, adequate urine output. Although it is reduced. Increased sputum. Increased wheeze. Symptoms improved with breathing treatment. No dysuria or complaints. No GI complaints. Progressive diffuse weakness the past week.? Patient is normally ambulatory, is still ambulatory however shorter distances.? Patient reportedly fell backwards onto her head without loss of consciousness this morning.? She is endorsing right humerus bilateral pain and weakness. She was started on ceftriaxone in the ER for bacterial pneumonia. She takes Lasix and lisinopril due to prior medical conditions. She reports having a mechanical aortic valve for which she takes Coumadin and the lisinopril is for her hypertension. [facility] Disclaimer: The information contained in this section may have been updated after the patient was seen, as this information can be updated by other users. Social History Smoking Status: Never smoker alcohol intake: never current occupational status: retired Travel in the last 8 weeks: None household members: none housing: house current occupational exposures/hazards: No caffeine: Yes Review of Systems Review of Systems Review of systems:: pertinent systems reviewed and negative unless documented below Constitutional Constitutional: Reports chills *Cardiovascular Cardiovascular: Denies chest pain, Reports dyspnea, Reports dyspnea on exertion and Denies leg edema *Respiratory Respiratory: Reports chest congestion, Reports cough, Reports dyspnea, Reports dyspnea on exertion, Reports excessive phlegm production and Denies hemoptysis *Gastrointestinal Gastrointestinal: Reports system reviewed and no additional complaints, except as documented *Genitourinary Genitourinary: Reports system reviewed and no additional complaints, except as documented *Musculoskeletal Musculoskeletal: Reports arthralgias *Neurologic Neurologic: Reports system reviewed and no additional complaints, except as documented Meds Home Medications and Allergies Home Medications Medication Instructions Recorded Confirmed Type escitalopram oxalate 20 mg tablet 20 mg PO DAILY Depression 10/24/17 01/28/21 History lisinopril 5 mg tablet 2.5 mg PO DAILY BP 10/24/17 01/28/21 History omeprazole 40 mg capsule,delayed 40 mg PO DAILY STOMACH 10/24/17 01/28/21 History release rosuvastatin 5 mg tablet (Crestor) 5 mg PO DAILY CHL 10/24/17 01/28/21 History sucralfate 1 gram tablet 1 g PO NEEDED PRN STOMACH 10/24/17 01/28/21 History topiramate 50 mg tablet (Topamax) 50 mg PO DAILY Headache 10/24/17 01/28/21 History warfarin 5 mg tablet 7.5 mg PO DIRECTED Blood thinner 10/24/17 01/28/21 History alprazolam 0.25 mg tablet 0.25 mg PO BID Anxiety 04/26/18 01/28/21 History fexofenadine 180 mg tablet 180 mg PO DAILY allergies 05/15/19 01/28/21 History trazodone 50 mg tablet 50 mg PO HS sleep 05/15/19 01/28/21 History silver sulfadiazine 1 % topical 85 gm TP TID burn 01/24/20 01/28/21 History cream New Prescriptions to Start Prescriptions: Allergies Allergy/AdvReac Type Severity Reaction Status Date / Time lithium Allergy Intermediate MAKES CRAZY Verified 01/28/21 14:40 fluticasone Allergy Mild DIZZY Verified 01/28/21 14:40 LIGHT HEADED hydrocodone [HYDROCODONE] Allergy Unknown Verified 01/28/21 14:40 hydromorphone AdvReac Intermediate WHEN G
--- NOTE | 2022-08-22 22:21 | PC.NURSE ---
Pt moved from stretcher to hospital bed for comfort. Call button within reach and pt informed to use the button if she has any needs. No other needs or complaints voiced at this time.
[2022-08-22 22:32] LABS: INR 3.26 (0.9-1.1); Prothrombin Time 32.9 seconds (10.1-12.5)
[2022-08-22 22:48] LABS: Reflex Lactic Add Lactic Reflex
[2022-08-22 23:03] LABS: Lactic Acid Follow Up (RFLX 1) 0.9 mmol/L (0.7-2.1)
--- NOTE | 2022-08-22 23:03 | PC.NURSE ---
Pt continues to rest in bed. No needs voiced at this time.
[2022-08-22 23:23] LABS: Thyroid Stimulating Hormone 0.98 uIU/mL (0.465-4.68)
[2022-08-23] VITALS (11 sets, daily range): BP systolic 112–152; BP diastolic 50–76; PULSE 59–109; RESP 14–26; TEMP 36.6–36.9; O2SAT 91–93; BMI 30.7
--- NOTE | 2022-08-23 00:05 | PC.NURSE ---
0000 vitals obtained. No needs voiced at this time.
--- NOTE | 2022-08-23 01:30 | PC.NURSE ---
Pt continues to rest with eyes closed.
--- NOTE | 2022-08-23 02:10 | PC.NURSE ---
Pt resting quietly with eyes closed. Call light within reach.
--- NOTE | 2022-08-23 03:14 | PC.NURSE ---
rounded on pt. pt resting quietly call light with in reach
--- NOTE | 2022-08-23 04:31 | PC.NURSE ---
Pt ambulatory to bathroom with minimal assistance.
--- NOTE | 2022-08-23 04:34 | PC.NURSE ---
Called hospitalist to confirm if pt could have breakfast tray. Was advised she was able to have a breakfast tray.
[2022-08-23 04:43] LABS: Microscopic, Urine URINE MICROSCOPIC (MICROSCOPIC)
[2022-08-23 04:46] LABS: Appearance,Urine CLEAR (Clear); Blood, Urine 1+ (Negative); Color,Urine DK YELLOW (Yellow); Glucose,Urine (UA) Negative (Negative); Ketones,Urine Negative (Negative); Leukocyte Esterase,Urine Negative (Negative); Nitrate,Urine Negative (Negative); PH,Urine 5.5 (5.0-8.5); Protein,Urine TRACE (Negative); Specific Gravity, Urine <= 1.005 (1.005-1.030)
[2022-08-23 04:47] LABS: Bilirubin,Urine Negative (Negative)
[2022-08-23 05:04] LABS: Bacteria,Urine 1+ /lpf
[2022-08-23 05:06] LABS: Chloride 93 mmol/L (98-107)
[2022-08-23 05:07] LABS: Potassium 3.8 mmoL/L (3.5-5.1); Sodium 128 mmol/L (136-145)
[2022-08-23 05:09] LABS: Alanine Aminotransferase 55 U/L (12-78); Albumin Level 3.3 g/dl (3.5-5.0); Albumin/Globulin Ratio 0.9 (1.1-1.8); Alkaline Phosphatase 183 U/L (38-126); Anion Gap 12.8 mEq/L (5-15); Aspartate Amino Transferase 85 U/L (14-36); Bilirubin,Total 1.2 mg/dl (0.2-1.3); Blood Urea Nitrogen 23 mg/dl (7-17); Carbon Dioxide 26 mmol/L (22.0-30.0); Creatinine Clearance Estimated 60 mL/min (50-200); Estimated Glomerular Filt Rate 80 ml/min (>60); GFR (African American) 97 ML/MIN (>60); Globulin 3.7 g/dL (1.3-3.2)
[2022-08-23 05:10] LABS: Calcium 8.7 mg/dl (8.4-10.2); Glucose 104 mg/dl (74-100); Magnesium 2.4 mg/dl (1.6-2.3); Phosphorous 3.5 mg/dl (2.5-4.5)
[2022-08-23 05:11] LABS: INR 4.37 (0.9-1.1); Prothrombin Time 43.4 seconds (10.1-12.5)
--- NOTE | 2022-08-23 06:29 | PC.NURSE ---
PT ARRIVED TO THE FLOOR VIA BED AT THIS TIME
--- NOTE | 2022-08-23 07:14 | EXP.ACUTE.PN ---
Subjective *Date: 08/23/22 *Time: 17:03 Interval history: Patient eating on exam. Did well overnight. Able to wean to 2 L nasal cannula oxygen. Denies any chest pain, nausea, vomiting. Still having cough is mildly productive. Feels less weak today than yesterday per her report. Denies diarrhea. Medical Exam Vital signs and Labs for Last 24 Hours: Vital Signs Temp Pulse Pulse Resp BP BP Pulse Ox 08/23/22 06:55 98.4 F 59 L 26 H 127/57 L 08/23/22 06:50 98.4 F 59 L 26 H 127/57 L 92 L 08/23/22 04:51 60 08/23/22 04:51 60 08/23/22 04:11 69 140/71 93 L 08/23/22 00:04 63 141/67 H 91 L 08/22/22 21:00 66 142/54 H 94 L 08/22/22 20:31 61 135/58 L 92 L 08/22/22 20:00 59 L 118/50 L 92 L 08/22/22 19:30 62 100/84 L 90 L 08/22/22 20:31 63 08/22/22 20:31 59 L 08/22/22 19:01 61 18 115/61 90 L 08/22/22 18:50 62 125/42 L 90 L 08/22/22 18:30 62 118/51 L 91 L 08/22/22 17:47 60 121/57 L 92 L 08/22/22 16:31 65 154/98 H 93 L 08/22/22 16:15 55 L 145/79 H 92 L 08/22/22 14:55 98.0 F 63 20 140/66 88 L Intake and Output 08/22/22 08/22/22 08/23/22 15:59 23:59 07:59 Other: Weight 87.09 kg 86.772 kg Patient Weight 08/23/22 23:59 Weight 86.772 kg Laboratory Results - last 24 hr 08/22/22 14:55: SARS-CoV-2 (PCR) Not detected, Influenza A Untype (PCR) Not detected, Influenza Type B (PCR) Not detected 08/22/22 18:59: WBC 20.2 H*, RBC 4.82, Hgb 15.1, Hct 44.6, MCV 92.7, MCH 31.3 H, MCHC 33.8, RDW 13.5, Plt Count 450 H, MPV 8.4, Neut % (Auto) 81.3 H, Lymph % (Auto) 12.2, [place] % (Auto) 5.6, Eos % (Auto) 0.1, Baso % (Auto) 0.7, Neut # (Auto) 16.4 H, Lymph # (Auto) 2.5, [place] # (Auto) 1.1 H, Eos # (Auto) 0.0, Baso # (Auto) 0.2, Total Counted 100, Neutrophils % (Manual) 79 H, Lymphocytes % (Manual) 15, Monocytes % (Manual) 6, Platelet Estimate Normal, Polychromasia 1+, Spherocytes 1+, Tear Drop Cells 1+ 08/22/22 18:59: Sodium 126 L, Potassium 4.2, Chloride 89 L, Carbon Dioxide 26, Anion Gap 15.2 H, BUN 27 H, Creatinine 0.90, Estimated Creat Clear 60, Estimated GFR 60, Est GFR ( Amer) 73, Glucose 116 H, Calcium 9.3, Total Bilirubin 1.4 H, AST 75 H, ALT 57, Alkaline Phosphatase 197 H, Total Protein 7.8, Albumin 3.8, Globulin 4.0 H, Albumin/Globulin Ratio 1.0 L 08/22/22 18:59: Lactate 2.2 H 08/22/22 18:59: PT 32.9 H, INR 3.26 H 08/22/22 18:59: TSH 0.98 08/22/22 22:46: Lactate 0.9 08/23/22 04:39: Urine Color Dk yellow, Urine Appearance Clear, Urine pH 5.5, Ur Specific [place] <= 1.005, Urine Protein Trace, Urine Glucose (UA) Negative, Urine Ketones Negative, Urine Blood 1+, Urine Nitrate Negative, Urine Bilirubin Negative, Urine Urobilinogen 2.0, Ur Leukocyte Esterase Negative, Urine RBC 3-5, Urine Bacteria 1+ 08/23/22 04:45: Sodium 128 L, Potassium 3.8, Chloride 93 L, Carbon Dioxide 26, Anion Gap 12.8, BUN 23 H, Creatinine 0.70 D, Estimated Creat Clear 60, Estimated GFR 80, Est GFR ( Amer) 97 D, Glucose 104 H, Calcium 8.7, Phosphorus 3.5, Magnesium 2.4 H, Total Bilirubin 1.2, AST 85 H, ALT 55, Alkaline Phosphatase 183 H, Total Protein 7.0, Albumin 3.3 L D, Globulin 3.7 H, Albumin/Globulin Ratio 0.9 L 08/23/22 04:45: PT 43.4 H, INR 4.37 H I & O for Labs for Last 24 Hours: Intake & Output 08/20/22 08/21/22 08/22/22 08/23/22 23:59 23:59 23:59 23:59 Weight 87.09 kg 86.772 kg Microbiology Reports for the Last 24 Hours: Microbiology 08/22/22 19:56 Sputum - Expectorated Sputum Gram Stain - Final Constitutional: Present mild distress, obese and chronically ill appearing Head: Present atraumatic and normocephalic ENT: Present normal exam Neck: Present normal inspection Respiratory: Present rhonchi, wheezes, crackles and normal respiratory effort; Absent accessory muscle use Cardiac: Present Reg Rate and Rhythm GI: Present soft and normal bowel sounds; Absent distention or tenderness Ext
[2022-08-23 07:39] LABS: Basophils # 0.2 K/mm3 (0-0.2); Basophils % 0.7 % (0.1-2.0); Eosinophils % 0.1 % (0.1-12.0); Hematocrit 44.4 % (37.0-47.0); Hemoglobin 14.5 g/dL (12.2-16.2); Lymphocytes # 3.3 K/mm3 (0.7-4.5); Lymphocytes % 15.5 % (10-50); Mean Corpuscular HGB Conc 32.7 g/dL (31.8-35.4); Mean Corpuscular Hemoglobin 30.7 pg (27.0-31.2); Mean Corpuscular Volume 93.9 fl (81-99); Monocytes # 1.3 K/mm3 (0.1-1.0); Monocytes % 5.9 % (1.7-9.3); Neutrophils # 16.6 K/mm3 (1.8-7.8); Neutrophils % 77.7 % (37.0-80.0); Platelet Count 471 K/mm3 (142-424); Red Blood Count 4.73 M/mm3 (4.20-5.40); Red Cell Distribution Width 13.5 % (11.5-17.5); White Blood Count 21.3 K/mm3 (4.8-10.8)
[2022-08-23 07:41] LABS: MANUAL DIFFERENTIAL MANUAL DIFFERENTIAL (MANUAL DIFF)
--- NOTE | 2022-08-23 08:00 | US_ITS ---
FINAL REPORT CLINICAL HISTORY: Transaminitis FINDINGS: Sonographic images of the right upper quadrant were obtained. The pancreas is partially obscured.The liver has is increased echogenicity.The gallbladder is absent.There is no evidence of biliary ductal dilatation.The common duct measures 5 mm. Limited images of the right kidney are unremarkable. IMPRESSION: Absent gallbladder. Fatty liver. Reviewed, Interpreted and Dictated by Phil Alcantar III, MD Transcribed by Tyler Ramsay Authenticated and [facility]
[2022-08-23 08:16] LABS: Lymphocytes % 26 % (10-50); Monocytes % 9 % (2-9); Neutrophils % 65 % (42-76); Total Cells Counted 100
[2022-08-23 08:17] LABS: Platelet Estimate Slight Increase; RBC Morphology Normal
--- NOTE | 2022-08-23 14:02 | PC.NURSE ---
one unmeasured void
--- NOTE | 2022-08-23 16:30 | PC.NURSE ---
Addendum entered by Peg Britt RN 08/23/22 17:40: pt c/o pain to rt side around breast area. gave pt a blanket to splint over rt side when deep breathing and coughing. rt lung clear, LLL coarse crackles. nicholas notified. Original Note: pt alert x4, lungs clear t/o. o2 on 2l via ns with sats around 92%. pt recieved 1 breathing treatment, stated her breathing feels much better. assist x1 as pt is weak. no skin issues noted. daughter at bedside. cb within reach. no concerns voiced at this time.
[2022-08-24] VITALS (10 sets, daily range): BP systolic 115–142; BP diastolic 50–92; PULSE 56–126; RESP 16–20; TEMP 36.5–37.2; O2SAT 90–96; BMI 31.1
--- NOTE | 2022-08-24 03:22 | PC.NURSE ---
Pt resting in bed at this time. Has been A/O X 4, resp even and non labored, inspiratory wheezes noted this morning in left lung. Pt has been up to bed side toilet this shift. Had a non productive cough. Pt currently wearing 3L 02 per NC. Pt educated on scheduled medications and Plan of care. Encouraged pt to use call light for any needs. Bed locked in low position, side rails up x 2, call light in reach.
[2022-08-24 06:59] LABS: Basophils # 0.2 K/mm3 (0-0.2); Eosinophils # 0.1 K/mm3 (0.0-0.4); Eosinophils % 0.6 % (0.1-12.0); Hematocrit 38.6 % (37.0-47.0); Hemoglobin 13.1 g/dL (12.2-16.2); Lymphocytes % 14.2 % (10-50); Mean Corpuscular HGB Conc 33.9 g/dL (31.8-35.4); Mean Corpuscular Hemoglobin 31.1 pg (27.0-31.2); Mean Corpuscular Volume 91.7 fl (81-99); Mean Platelet Volume 8.4 fl (7.4-10.4); Monocytes # 1.5 K/mm3 (0.1-1.0); Monocytes % 6.8 % (1.7-9.3); Neutrophils # 16.4 K/mm3 (1.8-7.8); Neutrophils % 77.4 % (37.0-80.0); Platelet Count 406 K/mm3 (142-424); Red Blood Count 4.21 M/mm3 (4.20-5.40); Red Cell Distribution Width 13.6 % (11.5-17.5); White Blood Count 21.2 K/mm3 (4.8-10.8)
[2022-08-24 07:01] LABS: Chloride 96 mmol/L (98-107)
[2022-08-24 07:02] LABS: MANUAL DIFFERENTIAL MANUAL DIFFERENTIAL (MANUAL DIFF); Potassium 3.5 mmoL/L (3.5-5.1); Sodium 129 mmol/L (136-145)
[2022-08-24 07:04] LABS: Alanine Aminotransferase 38 U/L (12-78); Aspartate Amino Transferase 57 U/L (14-36); Blood Urea Nitrogen 14 mg/dl (7-17); Creatinine Clearance Estimated 60 mL/min (50-200); Estimated Glomerular Filt Rate 118 ml/min (>60); GFR (African American) 143 ML/MIN (>60); INR 4.06 (0.9-1.1); Prothrombin Time 40.5 seconds (10.1-12.5)
[2022-08-24 07:05] LABS: Alkaline Phosphatase 169 U/L (38-126); Anion Gap 13.5 mEq/L (5-15); Bilirubin,Total 0.8 mg/dl (0.2-1.3); Calcium 7.9 mg/dl (8.4-10.2); Carbon Dioxide 23 mmol/L (22.0-30.0); Globulin 3.1 g/dL (1.3-3.2); Glucose 116 mg/dl (74-100); Total Protein,Serum 6.1 g/dl (6.3-8.2)
--- NOTE | 2022-08-24 07:21 | CA_ITS ---
APPROVED REPORT EXAM: Comprehensive 2D, Doppler, and color-flow Echocardiogram Contract Attorney: JEAN Hensley, RVS Ht: 5 ft 6 in Wt: 194lbs BSA: 1.97 BP: 142/54 mmHg Rhythm: Atrial Fibrillation Indications: Pneumonia, Aortic valve [id number], Pacer 2D Dimensions Aortic Root 2.06 cm LA Volume 81.80 mL Left Atrium 3.70 cm LA Volume Index 40.50 mL/m2 (M/F) 16-34 LVOT 2.02 cm (M/F) 1.5-2.5 Ascending Aorta 2.78 cm M-Mode Dimensions RVDd 2.75 cm (0.9-2.6) LA Diam 4.54 cm (1.9-4.0) LVDd 4.75 cm (3.5-5.7) Ao Diam 2.44 cm (2.0-3.7) LVDs 2.57 cm (3.5-5.7) IVSd 1.00 cm (0.6-1.1) PWd 0.89 cm (0.6-1.1) EF (Teich) 77.20% EPSs 0.27 cm FS 45.90% EDV (Teich) 104.90 mL TAPSE 1.94 (<1.7) ESV (Teich) 23.90 mL LV Diastology E Decel Time 100.00 (160-240 msec) E/A Ratio 1.38 MED E' 12.90 (< 7 cm/sec) MED A' 11.30 cm/s E'/MED E' Ratio 7.36 (>14) LAT E' 5.40 (<10 cm/sec) LAT A' 18.70 cm/s E/LAT E' Ratio 17.57 (>14) Aortic Valve LVOT Max 83.00 (70-110 cm/s) LVOT VTI 14.47 cm AoV Peak Sarbjit. 242.00 (50-130 cm/s) AO Peak GR. 23.50 mmHg AO Mean GR. 11.60 (<5 mmHg) AO VTI 38.00 (18-25 cm) SEBLE (VTI) 1.22 (2.5-4.5 cm2) Mitral Valve MV A Velocity 69.00 (40-130 cm/s) E/A Ratio 1.38 MV Decel. Time 100.00 (160-240 ms) MV PHT 30.00 ms Pulmonary Valve PV Peak Velocity 107.00 (50-150 cm/s) Tricuspid Valve TR P. Velocity 309.00 cm/s RAP Estimate 10.00 mmHg RVSP 48.10 mmHg Left Ventricle Left atrium is mildly enlarged, left ventricle is normal size mild concentric left ventricular hypertrophy, estimated ejection fraction 55% with no regional wall motion abnormality. Diastolic parameters are inconclusive. Right Ventricle Right atrium and right ventricle are mildly enlarged with normal contractility. Aortic Valve There is mechanical prosthetic valve noted in the aortic position, the valve is well-seated, the mean gradient across the valve is 12 mmHg, which is within acceptable range for this valve. There is no significant aortic insufficiency seen. Mitral Valve Mitral valve grossly normal, there is mild mitral regurgitation noted. Tricuspid Valve Tricuspid valve grossly normal, there is mild tricuspid regurgitation noted, calculated right ventricular systolic pressure is 48 mmHg. Pulmonic Valve Pulmonic valve is poorly visualized. Great Vessels Aortic root is normal size. Inferior vena cava is poorly visualized. Pericardium No significant pericardial effusion noted. Conclusion 1. Biatrial enlargement, normal left ventricular size, mild concentric left ventricular hypertrophy, estimated ejection fraction 55% with no regional wall motion abnormality, diastolic parameters are inconclusive in the study. 2. Mildly enlarged right ventricle with normal contractility. 3. Normal functioning mechanical prosthetic valve in the aortic position without significant aortic outflow obstruction or aortic insufficiency. 4. Mild mitral and tricuspid regurgitation, calculated right ventricular systolic pressure is 48 mmHg. 5. No significant pericardial effusion noted. 6. Inferior vena cava is poorly visualized. Electronically signed by : Roger Murguia MD 08/25/2022 06:55:30
--- NOTE | 2022-08-24 07:22 | EXP.ACUTE.PN ---
Subjective *Date: 08/24/22 *Time: 13:26 Interval history: States she is feeling better this morning however clinically does not look better. On 4 L nasal cannula on evaluation. Afebrile. No nausea or vomiting. Tolerating some p.o. intake. Intermittent tachycardia, will obtain EKG this morning. No chest pain or confusion per patient Medical Exam Vital signs and Labs for Last 24 Hours: Vital Signs Temp Pulse Pulse Resp BP Pulse Ox 08/24/22 05:47 126 H 08/24/22 05:47 118 H 08/24/22 05:47 92 L 08/24/22 04:00 97.9 F 75 16 139/64 94 L 08/24/22 00:00 98 F 98 H 16 115/69 91 L 08/23/22 23:01 60 08/23/22 23:01 60 08/23/22 20:00 97.9 F 107 H 16 112/76 91 L 08/23/22 18:14 83 08/23/22 18:14 83 08/23/22 18:14 93 L 08/23/22 16:00 98.4 F 109 H 16 124/66 93 L 08/23/22 12:00 98.1 F 65 18 152/73 H 92 L 08/23/22 08:00 97.9 F 61 14 135/50 L 92 L Intake and Output 08/23/22 08/23/22 08/24/22 15:59 23:59 07:59 Intake Total 240 / 300 60 / 300 Output Total 0 / 380 380 / 380 250 / 250 Balance 240 / -80 -320 / -80 -250 / -250 Intake: Intake, Oral Amount 240 / 300 60 / 300 Output: Output, Urine Amount 0 / 380 380 / 380 250 / 250 Other: Number of Unmeasured Voids 1 Weight 88.042 kg Patient Weight 08/24/22 23:59 Weight 88.042 kg Laboratory Results - last 24 hr 08/23/22 04:45: WBC 21.3 H*, RBC 4.73, Hgb 14.5, Hct 44.4, MCV 93.9, MCH 30.7, MCHC 32.7, RDW 13.5, Plt Count 471 H, MPV 9.0, Neut % (Auto) 77.7, Lymph % (Auto) 15.5, [place] % (Auto) 5.9, Eos % (Auto) 0.1, Baso % (Auto) 0.7, Neut # (Auto) 16.6 H, Lymph # (Auto) 3.3, [place] # (Auto) 1.3 H, Eos # (Auto) 0.0, Baso # (Auto) 0.2, Total Counted 100, Neutrophils % (Manual) 65, Lymphocytes % (Manual) 26, Monocytes % (Manual) 9, Platelet Estimate Slight increase, RBC Morphology Normal 08/24/22 06:43: WBC 21.2 H*, RBC 4.21, Hgb 13.1, Hct 38.6, MCV 91.7, MCH 31.1, MCHC 33.9, RDW 13.6, Plt Count 406, MPV 8.4, Neut % (Auto) 77.4, Lymph % (Auto) 14.2, [place] % (Auto) 6.8, Eos % (Auto) 0.6, Baso % (Auto) 1.0, Neut # (Auto) 16.4 H, Lymph # (Auto) 3.0, [place] # (Auto) 1.5 H, Eos # (Auto) 0.1, Baso # (Auto) 0.2 08/24/22 06:43: Sodium 129 L, Potassium 3.5, Chloride 96 L, Carbon Dioxide 23, Anion Gap 13.5, BUN 14 D, Creatinine 0.50 L D, Estimated Creat Clear 60, Estimated GFR 118, Est GFR ( Amer) 143 D, Glucose 116 H, Calcium 7.9 L, Total Bilirubin 0.8, AST 57 H D, ALT 38 D, Alkaline Phosphatase 169 H, Total Protein 6.1 L, Albumin 3.0 L, Globulin 3.1, Albumin/Globulin Ratio 1.0 L I & O for Labs for Last 24 Hours: Intake & Output 08/21/22 08/22/22 08/23/22 08/24/22 23:59 23:59 23:59 23:59 Intake Total 300 / 300 Output Total 380 / 380 250 / 250 Balance -80 / -80 -250 / -250 Weight 87.09 kg 86.772 kg 88.042 kg Constitutional: Present mild distress, obese and chronically ill appearing Head: Present atraumatic and normocephalic ENT: Present normal exam Neck: Present normal inspection Respiratory: Present rhonchi, wheezes, crackles and normal respiratory effort; Absent accessory muscle use Cardiac: Present Reg Rate and Rhythm GI: Present soft and normal bowel sounds; Absent distention or tenderness Extremities: Present normal inspection and full ROM Skin: Present intact; Absent erythema Neuro: Present Grossly Intact, alert, awake, oriented x 3 and moves all extremities Assessment and Plan *Assessment and plan (1) Sepsis: Status: Acute Category: Medical Code(s): A41.9 - Sepsis, unspecified organism (2) Pneumonia: Status: Acute Category: Medical Code(s): J18.9 - Pneumonia, unspecified organism (3) Fall: Status: Acute Category: Medical Code(s): W19.XXXA - Unspecified fall, initial encounter (4) H/O aortic valve repair: Status: Acute Category: Surgical Code(s): Z98.890 - Other specified postpr
--- NOTE | 2022-08-24 08:01 | ECG_ITS ---
APPROVED REPORT Exam: Resting ECG HR:84 bpm ECG Measurements Heart Rate 84 AXES QRSd 168 QRS 11 QT 411 T 137 QTc 452 Conclusion ELECTRONIC VENTRICULAR PACEMAKER ABNORMAL RHYTHM ECG UNCONFIRMED REPORT Electronically signed by : Brian Flores MD 08/26/2022 08:58:31
--- NOTE | 2022-08-24 08:09 | P.CONPHA_ITS ---
Pharmacy Consult Date: 08/24/22 Time: 08:09 Referring provider: EMRE Reason for Consult:: PHARMACY CONSULTED TO MANAGE VANCOMYCIN THERAPY FOR POSSIBLE SEPSIS. Allergies Allergy/AdvReac Type Severity Reaction Status Date / Time lithium Allergy Intermediate MAKES CRAZY Verified 01/28/21 14:40 fluticasone Allergy Mild DIZZY Verified 01/28/21 14:40 LIGHT HEADED hydrocodone [HYDROCODONE] Allergy Unknown Verified 01/28/21 14:40 hydromorphone AdvReac Intermediate WHEN GIVEN Verified 01/28/21 14:40 WITH PROMETHAZINE, PATIENT OVER SEDATED Home Medications Medication Instructions Recorded Confirmed Type escitalopram oxalate 20 mg tablet 20 mg PO DAILY Depression 10/24/17 08/23/22 History lisinopril 5 mg tablet 2.5 mg PO DAILY High blood pressure 10/24/17 08/23/22 History omeprazole 40 mg capsule,delayed 40 mg PO BID acid reflux 10/24/17 08/23/22 History release rosuvastatin 5 mg tablet (Crestor) 5 mg PO HS Cholesterol 10/24/17 08/23/22 History alprazolam 0.25 mg tablet 0.25 mg PO BID Anxiety 04/26/18 08/23/22 History trazodone 50 mg tablet 50 mg PO HS sleep 05/15/19 08/23/22 History fluticasone propionate 50 1 spray intranasal BID Allergy 08/23/22 08/23/22 History mcg/actuation nasal symptoms spray,suspension furosemide 20 mg tablet 20 mg PO DAILY diuretic 08/23/22 08/23/22 History montelukast 10 mg tablet 10 mg PO PM Allergy symptoms 08/23/22 08/23/22 History potassium chloride 10 mEq 10 meq PO DAILY potassium 08/23/22 08/23/22 History tablet,extended release replacement warfarin 7.5 mg tablet 5 mg PO URBINA PULMONARY EMBOLISM 08/23/22 08/23/22 History warfarin 7.5 mg tablet 7.5 mg PO MOTUWETHFRSA PULMONARY 08/23/22 08/23/22 History EMBOLISM New Prescriptions to Start Prescriptions: Height: 1.68 m Weight: 88.042 kg Laboratory Results:: Laboratory Results - last 24 hr 08/23/22 04:45: Total Counted 100, Neutrophils % (Manual) 65, Lymphocytes % (Manual) 26, Monocytes % (Manual) 9, Platelet Estimate Slight increase, RBC Morp hology Normal 08/24/22 06:43: WBC 21.2 H*, RBC 4.21, Hgb 13.1, Hct 38.6, MCV 91.7, MCH 31.1, MCHC 33.9, RDW 13.6, Plt Count 406, MPV 8.4, Neut % (Auto) 77.4, Lymph % (Auto) 14.2, [place] % (Auto) 6.8, Eos % (Auto) 0.6, Baso % (Auto) 1.0, Neut # (Auto) 16.4 H, Lymph # (Auto) 3.0, [place] # (Auto) 1.5 H, Eos # (Auto) 0.1, Baso # (Auto) 0.2 08/24/22 06:43: PT 40.5 H, INR 4.06 H 08/24/22 06:43: Sodium 129 L, Potassium 3.5, Chloride 96 L, Carbon Dioxide 23, Anion Gap 13.5, BUN 14 D, Creatinine 0.50 L D, Estimated Creat Clear 60, Estimated GFR 118, Est GFR ( Amer) 143 D, Glucose 116 H, Calcium 7.9 L, Total Bilirubin 0.8, AST 57 H D, ALT 38 D, Alkaline Phosphatase 169 H, Total Protein 6.1 L, Albumin 3.0 L, Globulin 3.1, Albumin/Globulin Ratio 1.0 L Assessment and Plan Assessment and plan all Dx Assessment and Plan for all problems:: PT RECEIVED CEFEPIME 2GM AND ZITHROMAX 500MG IN ER. WILL START VANCOMYCIN 1500MG EVERY 24 HOURS BASED ON PT WEIGHT AND RENAL FUNCTION. PHARMACY WILL FOLLOW DAILY UNTIL VANCOMYCIN DISCONTINUED. THANKS
[2022-08-24 08:22] LABS: Lymphocytes % 14 % (10-50); Monocytes % 2 % (2-9); Neutrophils % 84 % (42-76); Total Cells Counted 100
[2022-08-24 08:23] LABS: Platelet Estimate Normal; RBC Morphology Normal
--- NOTE | 2022-08-24 09:34 | EXP.CARD.CON ---
History of Present Illness History of Present Illness Consult date: 08/24/22 Requesting physician: Peter Billy Consult reason: shortness of breath Chief complaint: SOA History of present illness: This is an 81-year-old white female who presented to the emergency department with complaints of shortness of breath and fall. She states that for the last week she had not felt well. She went to see her primary care provider last Monday because of shortness of breath and a cough. She was diagnosed with a viral illness but was negative for COVID. She states that her symptoms progressively worsened since then. She states that she is short of breath at rest and worse with exertion. It is associated with a productive cough. She states that she has been having increased sputum and increased wheezes. Her p.o. intake has been decreased but she has been adequately urinating. She denies any fever or chills. The patient's states that she had become progressively more weak. She states that she usually ambulates normally but had been noticing that she was only able to ambulate short distances without becoming significantly short of breath. Just prior to being admitted she states that she was walking and fell backwards because of her weakness. She did not lose consciousness and did not feel dizzy. She denies any chest pain or pressure. She denies any lower extremity edema. She denies any nausea, vomiting, diarrhea, PND or orthopnea. The patient was diagnosed with pneumonia and admitted to the hospital. Of note she does have a permanent pacemaker in place and is status post mechanical aortic valve replacement on Coumadin. She sees cardiology in [place] and actually had an appointment with them today. [facility] Disclaimer: The information contained in this section may have been updated after the patient was seen, as this information can be updated by other users. Medical History (Updated 08/24/22 @ 11:43 by Katie Patel APRN) Fall Hyperlipidemia Hypertension Hyponatremia Paroxysmal atrial fibrillation Pneumonia Sepsis SOB (shortness of breath) on exertion Surgical History (Updated 08/24/22 @ 09:45 by Katie Patel APRN) H/O mechanical aortic valve replacement Presence of cardiac pacemaker Social History Smoking Status: Never smoker alcohol intake: never current occupational status: retired Travel in the last 8 weeks: None household members: none housing: house current occupational exposures/hazards: No caffeine: Yes Review of Systems Review of Systems Review of systems:: pertinent systems reviewed and negative unless documented below Constitutional Constitutional: Reports system reviewed and no additional complaints, except as documented, Reports poor appetite, Reports lethargy and Reports weakness Eyes Eyes: Reports system reviewed and no additional complaints, except as documented ENT Ears, Nose, Mouth, and Throat: Reports system reviewed and no additional complaints, except as documented *Cardiovascular Cardiovascular: Reports system reviewed and no additional complaints, except as documented, Denies chest pain, Reports dyspnea and Reports dyspnea on exertion *Respiratory Respiratory: Reports system reviewed and no additional complaints, except as documented, Reports chest congestion, Reports cough, Reports dyspnea, Reports dyspnea on exertion, Reports excessive phlegm production and Reports wheezing *Gastrointestinal Gastrointestinal: Reports system reviewed and no additional complaints, except as documented *Genitourinary Genitourinary: Reports system reviewed and no additional complaints, except as documented *Musculoskeletal Musculoskeletal: Reports system reviewed and no additional complaints, except as documented Integumentary/Breasts Skin/Breast: Reports system reviewed and no additional complaints, except as documented *Neurologic Neurologic: Reports syst
--- NOTE | 2022-08-24 09:45 | EXP.PULM.CON ---
History of Present Illness History of present illness: Ms. Mejia is a 81-year-old female no significant Prior respiratory complaints, no significant prior smoking history presented to the hospital complaining of worsening respiratory distress along with worsening cough and productive phlegm for almost 2 weeks presented to the hospital and eventually needing hospital admission oxygen supplementation pulmonary was called for further evaluation [facility] Disclaimer: The information contained in this section may have been updated after the patient was seen, as this information can be updated by other users. Medical History (Updated 08/24/22 @ 13:33 by Srinivas Brandt MD) Acute respiratory failure with hypoxia CAP (community acquired pneumonia) Fall Hyperlipidemia Hypertension Hyponatremia Paroxysmal atrial fibrillation Pneumonia Sepsis SOB (shortness of breath) on exertion Surgical History (Updated 08/24/22 @ 09:45 by Katie Patel APRN) H/O mechanical aortic valve replacement Presence of cardiac pacemaker Social History Smoking Status: Never smoker alcohol intake: never current occupational status: retired Travel in the last 8 weeks: None household members: none housing: house current occupational exposures/hazards: No caffeine: Yes Review of Systems Review of Systems Review of systems:: pertinent systems reviewed and negative unless documented below Constitutional Constitutional: Reports system reviewed and no additional complaints, except as documented, Reports poor appetite, Reports lethargy and Reports weakness Eyes Eyes: Reports system reviewed and no additional complaints, except as documented ENT Ears, Nose, Mouth, and Throat: Reports system reviewed and no additional complaints, except as documented *Cardiovascular Cardiovascular: Reports system reviewed and no additional complaints, except as documented, Denies chest pain, Reports dyspnea and Reports dyspnea on exertion *Respiratory Respiratory: Reports chest congestion, Reports cough, Reports dyspnea, Reports dyspnea on exertion, Reports excessive phlegm production, Denies hemoptysis, Denies pain on inspiration, Denies pain with cough and Reports wheezing *Musculoskeletal Musculoskeletal: Reports muscle weakness *Neurologic Neurologic: Reports system reviewed and no additional complaints, except as documented and Reports weakness Psychiatric Psychiatric: Denies homicidal ideation and Denies suicidal ideation Endocrine Endocrine: Reports system reviewed and no additional complaints, except as documented Allergic/Immunologic Allergic/Immunologic: Reports wheezing Pulmonology Exam Inpatient Vital signs and Labs for Last 24 Hours: Temp Pulse Resp BP Pulse Ox 98.0 F 56 L 18 129/50 L 92 L 08/24/22 07:40 08/24/22 07:40 08/24/22 07:40 08/24/22 07:40 08/24/22 07:40 Laboratory Results - last 24 hr 08/24/22 06:43: WBC 21.2 H*, RBC 4.21, Hgb 13.1, Hct 38.6, MCV 91.7, MCH 31.1, MCHC 33.9, RDW 13.6, Plt Count 406, MPV 8.4, Neut % (Auto) 77.4, Lymph % (Auto) 14.2, [place] % (Auto) 6.8, Eos % (Auto) 0.6, Baso % (Auto) 1.0, Neut # (Auto) 16.4 H, Lymph # (Auto) 3.0, [place] # (Auto) 1.5 H, Eos # (Auto) 0.1, Baso # (Auto) 0.2, Total Counted 100, Neutrophils % (Manual) 84 H, Lymphocytes % (Manual) 14, Monocytes % (Manual) 2, Platelet Estimate Normal, RBC Morphology Normal 08/24/22 06:43: PT 40.5 H, INR 4.06 H 08/24/22 06:43: Sodium 129 L, Potassium 3.5, Chloride 96 L, Carbon Dioxide 23, Anion Gap 13.5, BUN 14 D, Creatinine 0.50 L D, Estimated Creat Clear 60, Estimated GFR 118, Est GFR ( Amer) 143 D, Glucose 116 H, Calcium 7.9 L, Total Bilirubin 0.8, AST 57 H D, ALT 38 D, Alkaline Phosphatase 169 H, Total Protein 6.1 L, Albumin 3.0 L, Globulin 3.1, Albumin/Globulin Ratio 1.0 L I & O for Labs for Last 24 Hours: Intake & Output 08/21/22 08/22/22 08/23/22 08/24/22 23:59 23:59 23:59 23:59 Intak
--- NOTE | 2022-08-24 09:49 | XR_ITS ---
FINAL REPORT CLINICAL HISTORY: PNM COMPARISON: August 22, 2022 FINDINGS: Cardiomegaly is noted. There is a left subclavian pacemaker. There has been prior median sternotomy. There are stable bilateral pulmonary opacities consistent with pneumonia. There is no pleural effusion. There is no pneumothorax. The bony thorax is intact. IMPRESSION: Bilateral pneumonia, stable. Reviewed, Interpreted and Dictated by Phil Alcantar III, MD Transcribed by Tyler Ramsay Authenticated and . [facility]
--- NOTE | 2022-08-24 20:23 | PC.NURSE ---
Pt is A/Ox4. She has been up to the chair most of my shift. She want back to bed around 1730. She is on 4L NC. She has gotten up to the BSC to urinate during my shift. She has no complaints or needs at this time.
[2022-08-25] VITALS (11 sets, daily range): BP systolic 93–150; BP diastolic 59–75; PULSE 75–103; RESP 18–24; TEMP 36.3–37; O2SAT 90–95; BMI 30.5
--- NOTE | 2022-08-25 02:38 | PC.NURSE ---
Pt laying in bed resting at this time. Has been A/O X 4. Lungs diminished throughout, Rhonchi noted in Bases. Pt has been coughing up thick yellow mucus. Resp even and non labored. Pt waering 4L 02 per NC, sats' in low 90's. Pt has been educated on deep breathing , verbalized understanding. Pt also educated on Scheduled and PRN medications. IV's are patent, no s/sx of infection at IV sites. Pt encouraged to report any shortness of air or needs to staff. Bed locked in low position, side rails up x 2, call light in reach.
[2022-08-25 08:10] LABS: Basophils # 0.4 K/mm3 (0-0.2); Basophils % 2.1 % (0.1-2.0); Eosinophils # 0.1 K/mm3 (0.0-0.4); Eosinophils % 0.7 % (0.1-12.0); Hematocrit 39.6 % (37.0-47.0); Hemoglobin 13.3 g/dL (12.2-16.2); Lymphocytes # 2.1 K/mm3 (0.7-4.5); Lymphocytes % 10.8 % (10-50); Mean Corpuscular HGB Conc 33.5 g/dL (31.8-35.4); Mean Corpuscular Hemoglobin 30.7 pg (27.0-31.2); Mean Corpuscular Volume 91.7 fl (81-99); Mean Platelet Volume 8.4 fl (7.4-10.4); Monocytes # 1.3 K/mm3 (0.1-1.0); Monocytes % 6.6 % (1.7-9.3); Neutrophils # 15.3 K/mm3 (1.8-7.8); Neutrophils % 79.8 % (37.0-80.0); Platelet Count 461 K/mm3 (142-424); Red Blood Count 4.32 M/mm3 (4.20-5.40); Red Cell Distribution Width 13.7 % (11.5-17.5); White Blood Count 19.1 K/mm3 (4.8-10.8)
[2022-08-25 08:11] LABS: MANUAL DIFFERENTIAL MANUAL DIFFERENTIAL (MANUAL DIFF)
[2022-08-25 08:21] LABS: INR 2.88 (0.9-1.1); Prothrombin Time 29.3 seconds (10.1-12.5)
[2022-08-25 09:00] LABS: Eosinophils % 2 % (0-3); Lymphocytes % 15 % (10-50); Monocytes % 5 % (2-9); Neutrophils % 77 % (42-76); Total Cells Counted 100
[2022-08-25 09:01] LABS: Platelet Estimate Slight Increase; RBC Morphology Normal
--- NOTE | 2022-08-25 09:34 | PC.NURSE ---
RESP CARE NOTE: Pt SPO2 at 87% on 2 lpm nasal cannula. Oxygen increased to 4 lpm nasal cannula to keep SPO2 above 92%.
--- NOTE | 2022-08-25 09:39 | EXP.PULM.PN ---
Subjective *Date: 08/25/22 *Time: 11:41 Interval history: No acute respiratory events. Admits slight Improvement in her respiratory symptoms. Pulmonology Exam Inpatient Vital signs and Labs for Last 24 Hours: Temp Pulse Resp BP Pulse Ox 98.6 F 96 H 18 150/73 H 92 L 08/25/22 07:31 08/25/22 07:31 08/25/22 07:31 08/25/22 07:31 08/25/22 07:31 Laboratory Results - last 24 hr 08/25/22 07:55: WBC 19.1 H, RBC 4.32, Hgb 13.3, Hct 39.6, MCV 91.7, MCH 30.7, MCHC 33.5, RDW 13.7, Plt Count 461 H, MPV 8.4, Neut % (Auto) 79.8, Lymph % (Auto) 10.8, [place] % (Auto) 6.6, Eos % (Auto) 0.7, Baso % (Auto) 2.1 H, Neut # (Auto) 15.3 H, Lymph # (Auto) 2.1, [place] # (Auto) 1.3 H, Eos # (Auto) 0.1, Baso # (Auto) 0.4 H, Total Counted 100, Neutrophils % (Manual) 77 H, Lymphocytes % (Manual) 15, Monocytes % (Manual) 5, Eosinophils % (Manual) 2, Basophils % (Manual) 1.0, Platelet Estimate Slight increase, RBC Morphology Normal 08/25/22 07:55: PT 29.3 H, INR 2.88 H I & O for Labs for Last 24 Hours: Intake & Output 08/22/22 08/23/22 08/24/22 08/25/22 23:59 23:59 23:59 23:59 Intake Total 300 / 300 480 / 600 360 / 360 Output Total 380 / 380 950 / 950 300 / 300 Balance -80 / -80 -470 / -350 60 / 60 Weight 192 lb 191 lb 4.8 oz 194 lb 0.108 oz 190 lb 2 oz Microbiology Reports for the Last 24 Hours: Microbiology 08/22/22 19:56 Sputum - Expectorated Sputum Gram Stain - Final 08/22/22 19:56 Sputum - Expectorated Sputum Sputum Culture - Preliminary Constitutional: Present mild distress Head: Present normocephalic and atraumatic ENT: Present normal exam, normal oropharynx and mucous membranes moist Neck: Present normal inspection and full ROM Respiratory: Present respiratory distress, crackles and able to speak in complete sentences; Absent accessory muscle use, patient mechanically ventilated or wheezes Cardiac: Present S1/S2, Tachycardia and radial pulses present GI: Present soft and distention; Absent tenderness or guarding Rectal (female): Present deferred (female): Present deferred Skin: Present intact; Absent cyanosis or jaundice Neuro: Present alert, awake and oriented x 3 Extremities: Present normal inspection; Absent clubbing or cyanosis Psychiatric: Present normal affect and cooperative Assessment and Plan *Assessment and plan (1) CAP (community acquired pneumonia): Status: Acute Category: Medical Code(s): J18.9 - Pneumonia, unspecified organism (2) Acute respiratory failure with hypoxia: Status: Acute Category: Medical Code(s): J96.01 - Acute respiratory failure with hypoxia Plan #Community-acquired pneumonia: #Acute hypoxic respiratory failure: CTA reviewed, no evidence of pulmonary embolism. Bilateral patchy atelectasis with dense Consolidation in the left right lower lobe. COVID-19 and Flu PCR negative. Continues to have leukocytosis remained stable since admission. Mechanical aortic valve on warfarin, supratherapeutic INR on admission Patient has been receiving ceftriaxone and azithromycin, escalated to vancomycin cefepime and azithromycin on 08/23/22 Preliminary sputum few Gram-positive cocci in pairs and chains along with few Gram-negative rods. Interval update: No acute respiratory events overnight. Continue daily repeat 4 L nasal cannula oxygen supplementation. Leukocytosis slightly improved. Patient admits slight improvement in her symptoms. Auscultation No significant change from yesterday. Received 40 IV lasix yesterday Plan: Continue nasal cannula oxygen supplementation to keep saturation goal of 90% and above Continue current antibiotic therapy with Vanc, cefepime and azithromycin pending clinical improvement, will have a low threshold to de-escalate antibiotics. Raj every 6 hours on as-needed basis Follow-up with cardiology recommendations Thank you for involving pulmonary in this patient care. We will continue to follow.
--- NOTE | 2022-08-25 10:00 | HMH.OTEV ---
OT Inpatient Evaluation Rehab OT IP Evaluation Start: 08/25/22 08:55 Freq: ONCE Status: Active Protocol: Document 08/25/22 09:51 CURTMYRTLE (Rec: 08/25/22 09:59 CURTMYRTLE [id number]) Rehab OT IP Assessment Subjective History Patient is a 81-year-old female with past medical history of pacemaker on warfarin who presents emergency department for evaluation of shortness of breath and a fall.? History is obtained by family member at bedside, patient was reportedly diagnosed with a viral illness last week, COVID reportedly negative, throughout the week patient has had progressive cough, shortness of breath.? She reports having decreased p.o. intake, adequate urine output. Although it is reduced. Increased sputum. Increased wheeze. Symptoms improved with breathing treatment. No dysuria or complaints. No GI complaints. Progressive diffuse weakness the past week.? Patient is normally ambulatory, is still ambulatory however shorter distances.? Patient reportedly fell backwards onto her head without loss of consciousness this morning.? She is endorsing right humerus bilateral pain and weakness. She was started on ceftriaxone in the ER for bacterial pneumonia. She takes Lasix and lisinopril due to prior medical conditions. She reports having a mechanical aortic valve for which she takes Coumadin and the lisinopril is for her hypertension. Patient lives alone in 1 story home with 1-2 JUSTINO. Patient completed all ADLs and fx'l mobility tasks at home I. Dtr
[2022-08-25 10:12] LABS: Alanine Aminotransferase 49 U/L (12-78); Albumin Level 3.2 g/dl (3.5-5.0); Alkaline Phosphatase 151 U/L (38-126); Bilirubin,Total 1.6 mg/dl (0.2-1.3); Blood Urea Nitrogen 11 mg/dl (7-17); Calcium 7.8 mg/dl (8.4-10.2); Carbon Dioxide 29 mmol/L (22.0-30.0); Chloride 95 mmol/L (98-107); Creatinine Clearance Estimated 59 mL/min (50-200); Estimated Glomerular Filt Rate 153 ml/min (>60); GFR (African American) 185 ML/MIN (>60); Glucose 92 mg/dl (74-100); Sodium 129 mmol/L (136-145)
--- NOTE | 2022-08-25 10:15 | HMH.PTEV ---
Physical Therapy Evaluation Rehab PT IP Evaluation Start: 08/25/22 08:55 Freq: ONCE Status: Active Protocol: Document 08/25/22 10:11 COLE (Rec: 08/25/22 10:15 PHOEVERT [id number]) Subjective/History History History 81 yowf adm to [facility] with PNA, She reports she lives alone, no steps to enter the home and is generally independent with all mobility without AD. Subjective Subjective No c/o this am, just feeling tired. Rehab PT IP Eval Objective Appearance Patient Behavior Appropriate Patient Orientation Person,Place,Time Difficulty following instructions none Speech Pattern Clear Ambulation Patient Able to Ambulate Yes Ambulation Observation IP General Gait Pattern Observation Wide Based Gait Ambulation Distance (feet) 30 Ambulation Assistive Device None Ambulation Ability Supervision/Stand by Balance Ability to Arise Able, uses arms to help Sitting Balance Steady, safe Standing Balance Steady, wide stance Dynamic Sitting Balance Ability Good Dynamic Standing Balance Ability Fair Transfers Bed Transfer Ability Supervision/Stand by Chair Transfer Ability Supervision/Stand by Sit to Stand Bed Transfer Ability Supervision/Stand by Sit to Stand Chair Transfer Ability Supervision/Stand by ROM All Extremities PT ROM Status WFL MMT All Extremities PT MMT WFL Rehab PT IP prob,goals,plan Problems Date of Evaluation: 08/25/22 Discharge Plan PT Discharge Plan Pt appears to be at baseline for all mobility at this time and is appropriate to return home once medically stable. G -code Required No Eval Complexity Eval Charge Codes 88599 - Moderate Complexity PHYSICIAN CERTIFICATION: I certify the specified therapy services for Annie Mejia are required, authorized, and reviewed every 30 days.
[2022-08-25 10:54] LABS: Anion Gap 8.4 mEq/L (5-15); Potassium 3.4 mmoL/L (3.5-5.1)
[2022-08-25 10:55] LABS: Albumin/Globulin Ratio 0.9 (1.1-1.8); Aspartate Amino Transferase 74 U/L (14-36); Globulin 3.4 g/dL (1.3-3.2); Total Protein,Serum 6.6 g/dl (6.3-8.2)
--- NOTE | 2022-08-25 11:34 | EXP.ACUTE.PN ---
Subjective *Date: 08/25/22 *Time: 17:14 Interval history: Patient stable this morning. On 4 L nasal cannula on exam. Satting mid to high 90s. Denies nausea or vomiting. No chest pain. Cough somewhat improving. Tolerating good p.o. intake. Getting to bedside chair Medical Exam Vital signs and Labs for Last 24 Hours: Vital Signs Temp Pulse Pulse Resp BP Pulse Ox 08/25/22 11:25 97.4 F L 75 20 124/75 95 08/25/22 11:10 94 H 08/25/22 11:10 95 H 08/25/22 11:10 90 L 08/25/22 07:31 98.6 F 96 H 18 150/73 H 92 L 08/25/22 05:25 85 08/25/22 05:25 86 08/25/22 05:25 91 L 08/25/22 04:00 97.8 F 103 H 18 128/59 L 94 L 08/24/22 23:57 98.0 F 90 17 118/69 96 08/24/22 20:00 99.0 F 105 H 18 142/92 H 92 L 08/24/22 18:19 66 08/24/22 18:19 64 08/24/22 18:19 90 L 08/24/22 15:34 98.9 F 105 H 16 119/64 94 L 08/24/22 11:39 97.7 F 119 H 20 137/69 94 L Intake and Output 08/24/22 08/25/22 08/25/22 23:59 07:59 15:59 Intake Total 240 / 600 360 / 360 Output Total 400 / 950 300 / 300 Balance -160 / -350 360 / 60 -300 / 60 Intake: Intake, Oral Amount 240 / 600 360 / 360 Output: Output, Urine Amount 400 / 950 300 / 300 Other: Weight 86.239 kg Patient Weight 08/25/22 23:59 Weight 86.239 kg Laboratory Results - last 24 hr 08/25/22 07:55: WBC 19.1 H, RBC 4.32, Hgb 13.3, Hct 39.6, MCV 91.7, MCH 30.7, MCHC 33.5, RDW 13.7, Plt Count 461 H, MPV 8.4, Neut % (Auto) 79.8, Lymph % (Auto) 10.8, [place] % (Auto) 6.6, Eos % (Auto) 0.7, Baso % (Auto) 2.1 H, Neut # (Auto) 15.3 H, Lymph # (Auto) 2.1, [place] # (Auto) 1.3 H, Eos # (Auto) 0.1, Baso # (Auto) 0.4 H, Total Counted 100, Neutrophils % (Manual) 77 H, Lymphocytes % (Manual) 15, Monocytes % (Manual) 5, Eosinophils % (Manual) 2, Basophils % (Manual) 1.0, Platelet Estimate Slight increase, RBC Morphology Normal 08/25/22 07:55: PT 29.3 H, INR 2.88 H 08/25/22 07:55: Sodium 129 L, Potassium 3.4 L, Chloride 95 L, Carbon Dioxide 29, Anion Gap 8.4, BUN 11, Creatinine 0.40 L, Estimated Creat Clear 59, Estimated GFR 153, Est GFR ( Amer) 185 D, Glucose 92, Calcium 7.8 L, Total Bilirubin 1.6 H, AST 74 H D, ALT 49 D, Alkaline Phosphatase 151 H, Total Protein 6.6, Albumin 3.2 L, Globulin 3.4 H, Albumin/Globulin Ratio 0.9 L I & O for Labs for Last 24 Hours: Intake & Output 08/22/22 08/23/22 08/24/22 08/25/22 23:59 23:59 23:59 23:59 Intake Total 300 / 300 480 / 600 360 / 360 Output Total 380 / 380 950 / 950 300 / 300 Balance -80 / -80 -470 / -350 60 / 60 Weight 87.09 kg 86.772 kg 88 kg 86.239 kg Microbiology Reports for the Last 24 Hours: Microbiology 08/22/22 19:56 Sputum - Expectorated Sputum Gram Stain - Final 08/22/22 19:56 Sputum - Expectorated Sputum Sputum Culture - Preliminary Constitutional: Present no acute distress, obese and chronically ill appearing Head: Present atraumatic and normocephalic ENT: Present normal exam Neck: Present normal inspection Respiratory: Present rhonchi, crackles and normal respiratory effort; Absent accessory muscle use or wheezes Cardiac: Present Reg Rate and Rhythm GI: Present soft and normal bowel sounds; Absent distention or tenderness Extremities: Present normal inspection and full ROM Skin: Present intact; Absent erythema Neuro: Present Grossly Intact, alert, awake, oriented x 3 and moves all extremities Assessment and Plan *Assessment and plan (1) Sepsis: Status: Acute Category: Medical Code(s): A41.9 - Sepsis, unspecified organism (2) Pneumonia: Status: Acute Category: Medical Code(s): J18.9 - Pneumonia, unspecified organism (3) Fall: Status: Acute Category: Medical Code(s): W19.XXXA - Unspecified fall, initial encounter (4) H/O aortic valve repair: Status: Acute Category: Surgical Code(s): Z98.890 - Other specified postprocedural s
[2022-08-25 16:21] LABS: Legionella pneumophila Urinary Negative (Negative)
--- NOTE | 2022-08-25 18:52 | PC.NURSE ---
No acute changes since taking over care of pt at 1500.
[2022-08-26] VITALS (12 sets, daily range): BP systolic 109–156; BP diastolic 58–81; PULSE 75–104; RESP 19–24; TEMP 36.4–37; O2SAT 3–96; BMI 30.4
--- NOTE | 2022-08-26 06:00 | XR_ITS ---
PROCEDURE INFORMATION: Exam: XR Chest Exam date and time: 08/26/2022 5:37 AM Age: 81 years old Clinical indication: Condition or disease; Lung condition and disease; Pneumonia; Additional info: Pnm TECHNIQUE: Imaging protocol: Radiologic exam of the chest. Views: 1 view. COMPARISON: CR XR CHEST PORTABLE 08/24/2022 9:49 AM FINDINGS: Tubes, catheters and devices: Pacemaker via a left subclavian approach. Lungs: Patchy diffuse interstitial and alveolar airspace disease right lung greater than left. Airspace consolidation left lower lobe. Edema and/or pneumonia. Pleural spaces: Unremarkable. No pleural effusion. No pneumothorax. Heart/Mediastinum: cardiomegaly. Bones/joints: Prior sternotomy. IMPRESSION: Patchy diffuse interstitial and alveolar airspace disease right lung greater than left. Airspace consolidation left lower lobe. Edema and/or pneumonia. Findings mildly progressive from the earlier reference study stated above.
--- NOTE | 2022-08-26 06:09 | PC.NURSE ---
Pt aox 4 and asks for assistance to the restroom if needed.
[2022-08-26 08:02] LABS: Chloride 97 mmol/L (98-107); Sodium 132 mmol/L (136-145)
[2022-08-26 08:03] LABS: Potassium 3.6 mmoL/L (3.5-5.1)
[2022-08-26 08:05] LABS: Alanine Aminotransferase 36 U/L (12-78); Albumin Level 2.8 g/dl (3.5-5.0); Albumin/Globulin Ratio 0.8 (1.1-1.8); Alkaline Phosphatase 143 U/L (38-126); Anion Gap 9.6 mEq/L (5-15); Aspartate Amino Transferase 56 U/L (14-36); Bilirubin,Total 0.7 mg/dl (0.2-1.3); Blood Urea Nitrogen 11 mg/dl (7-17); Calcium 7.8 mg/dl (8.4-10.2); Carbon Dioxide 29 mmol/L (22.0-30.0); Creatinine Clearance Estimated 59 mL/min (50-200); Estimated Glomerular Filt Rate 118 ml/min (>60); GFR (African American) 143 ML/MIN (>60); Globulin 3.4 g/dL (1.3-3.2); Glucose 92 mg/dl (74-100); Total Protein,Serum 6.2 g/dl (6.3-8.2)
[2022-08-26 08:06] LABS: Magnesium 2.2 mg/dl (1.6-2.3)
--- NOTE | 2022-08-26 10:01 | EXP.PULM.PN ---
Subjective *Date: 08/26/22 *Time: 12:13 Interval history: No acute respiratory events overnight. Patient admits continued improvement in her symptoms. Pulmonology Exam Inpatient Vital signs and Labs for Last 24 Hours: Temp Pulse Resp BP Pulse Ox 98.0 F 91 H 20 156/74 H 94 L 08/26/22 07:50 08/26/22 07:50 08/26/22 07:50 08/26/22 07:50 08/26/22 07:50 Laboratory Results - last 24 hr 08/23/22 04:39: Ur L.pneumophila Ag Negative 08/25/22 07:55: Sodium 129 L, Potassium 3.4 L, Chloride 95 L, Carbon Dioxide 29, Anion Gap 8.4, BUN 11, Creatinine 0.40 L, Estimated Creat Clear 59, Estimated GFR 153, Est GFR ( Amer) 185 D, Glucose 92, Calcium 7.8 L, Total Bilirubin 1.6 H, AST 74 H D, ALT 49 D, Alkaline Phosphatase 151 H, Total Protein 6.6, Albumin 3.2 L, Globulin 3.4 H, Albumin/Globulin Ratio 0.9 L 08/26/22 07:09: Sodium 132 L, Potassium 3.6, Chloride 97 L, Carbon Dioxide 29, Anion Gap 9.6, BUN 11, Creatinine 0.50 L D, Estimated Creat Clear 59, Estimated GFR 118, Est GFR ( Amer) 143 D, Glucose 92, Calcium 7.8 L, Magnesium 2.2, Total Bilirubin 0.7, AST 56 H, ALT 36 D, Alkaline Phosphatase 143 H, Total Protein 6.2 L, Albumin 2.8 L D, Globulin 3.4 H, Albumin/Globulin Ratio 0.8 L 08/26/22 09:02: Vancomycin Trough 7.0 I & O for Labs for Last 24 Hours: Intake & Output 08/23/22 08/24/22 08/25/22 08/26/22 23:59 23:59 23:59 23:59 Intake Total 300 / 300 480 / 600 1080 / 1080 460 / 460 Output Total 380 / 380 950 / 950 700 / 700 400 / 400 Balance -80 / -80 -470 / -350 380 / 380 60 / 60 Weight 191 lb 4.8 oz 194 lb 0.108 oz 190 lb 2 oz 189 lb 2 oz Microbiology Reports for the Last 24 Hours: Microbiology 08/22/22 19:56 Sputum - Expectorated Sputum Gram Stain - Final 08/22/22 19:56 Sputum - Expectorated Sputum Sputum Culture - Preliminary Constitutional: Present mild distress Head: Present normocephalic and atraumatic ENT: Present normal exam, normal oropharynx and mucous membranes moist Neck: Present normal inspection and full ROM Respiratory: Present respiratory distress, crackles and able to speak in complete sentences; Absent accessory muscle use, patient mechanically ventilated or wheezes Cardiac: Present S1/S2, Tachycardia and radial pulses present GI: Present soft and distention; Absent tenderness or guarding Rectal (female): Present deferred (female): Present deferred Skin: Present intact; Absent cyanosis or jaundice Neuro: Present alert, awake and oriented x 3 Extremities: Present normal inspection; Absent clubbing or cyanosis Psychiatric: Present normal affect and cooperative Assessment and Plan *Assessment and plan (1) CAP (community acquired pneumonia): Status: Acute Category: Medical Code(s): J18.9 - Pneumonia, unspecified organism (2) Acute respiratory failure with hypoxia: Status: Acute Category: Medical Code(s): J96.01 - Acute respiratory failure with hypoxia Plan #Community-acquired pneumonia: #Acute hypoxic respiratory failure: CTA reviewed, no evidence of pulmonary embolism. Bilateral patchy atelectasis with dense Consolidation in the left right lower lobe. COVID-19 and Flu PCR negative. Continues to have leukocytosis remained stable since admission. Mechanical aortic valve on warfarin, supratherapeutic INR on admission Patient has been receiving ceftriaxone and azithromycin, escalated to vancomycin cefepime and azithromycin on 08/23/22 Preliminary sputum few Gram-positive cocci in pairs and chains along with few Gram-negative rods. Interval update: No acute respiratory events overnight. Admits improvement in her clinical status. Weaned to 2 L with saturations maintained at 89 to 92% Plan: -Lasix 40 IV x 2 doses Continue nasal cannula oxygen supplementation to keep saturation goal of 90% and above Continue current antibiotic therapy with Vanc, cefepime and azithromycin pending clinical improvement. Follow-up with chest x-ray postdiuresis tomorrow
--- NOTE | 2022-08-26 10:05 | EXP.PHA.CONS ---
Pharmacy Consult Date: 08/26/22 Time: 10:06 Referring provider: DR WHITEHEAD Reason for Consult:: VANCOMYCIN TROUGH LEVEL OBTAINED Allergies Allergy/AdvReac Type Severity Reaction Status Date / Time lithium Allergy Intermediate MAKES CRAZY Verified 01/28/21 14:40 fluticasone Allergy Mild DIZZY Verified 01/28/21 14:40 LIGHT HEADED hydrocodone [HYDROCODONE] Allergy Unknown Verified 01/28/21 14:40 hydromorphone AdvReac Intermediate WHEN GIVEN Verified 01/28/21 14:40 WITH PROMETHAZINE, PATIENT OVER SEDATED Home Medications Medication Instructions Recorded Confirmed Type escitalopram oxalate 20 mg tablet 20 mg PO DAILY Depression 10/24/17 08/23/22 History lisinopril 5 mg tablet 2.5 mg PO DAILY High blood pressure 10/24/17 08/23/22 History omeprazole 40 mg capsule,delayed 40 mg PO BID acid reflux 10/24/17 08/23/22 History release rosuvastatin 5 mg tablet (Crestor) 5 mg PO HS Cholesterol 10/24/17 08/23/22 History alprazolam 0.25 mg tablet 0.25 mg PO BID Anxiety 04/26/18 08/23/22 History trazodone 50 mg tablet 50 mg PO HS sleep 05/15/19 08/23/22 History fluticasone propionate 50 1 spray intranasal BID Allergy 08/23/22 08/23/22 History mcg/actuation nasal symptoms spray,suspension furosemide 20 mg tablet 20 mg PO DAILY diuretic 08/23/22 08/23/22 History montelukast 10 mg tablet 10 mg PO PM Allergy symptoms 08/23/22 08/23/22 History potassium chloride 10 mEq 10 meq PO DAILY potassium 08/23/22 08/23/22 History tablet,extended release replacement warfarin 7.5 mg tablet 5 mg PO URBINA PULMONARY EMBOLISM 08/23/22 08/23/22 History warfarin 7.5 mg tablet 7.5 mg PO MOTUWETHFRSA PULMONARY 08/23/22 08/23/22 History EMBOLISM New Prescriptions to Start Prescriptions: Height: 1.68 m Weight: 85.786 kg Laboratory Results:: Laboratory Results - last 24 hr 08/23/22 04:39: Ur L.pneumophila Ag Negative 08/25/22 07:55: Sodium 129 L, Potassium 3.4 L, Chloride 95 L, Carbon Dioxide 29, Anion Gap 8.4, BUN 11, Creatinine 0.40 L, Estimated Creat Clear 59, Estimated GFR 153, Est GFR ( Amer) 185 D, Glucose 92, Calcium 7.8 L, Total Bilirubin 1.6 H, AST 74 H D, ALT 49 D, Alkaline Phosphatase 151 H, Total Protein 6.6, Albumin 3.2 L, Globulin 3.4 H, Albumin/Globulin Ratio 0.9 L 08/26/22 07:09: Sodium 132 L, Potassium 3.6, Chloride 97 L, Carbon Dioxide 29, Anion Gap 9.6, BUN 11, Creatinine 0.50 L D, Estimated Creat Clear 59, Estimated GFR 118, Est GFR ( Amer) 143 D, Glucose 92, Calcium 7.8 L, Magnesium 2.2, Total Bilirubin 0.7, AST 56 H, ALT 36 D, Alkaline Phosphatase 143 H, Total Protein 6.2 L, Albumin 2.8 L D, Globulin 3.4 H, Albumin/Globulin Ratio 0.8 L 08/26/22 09:02: Vancomycin Trough 7.0 Medical History: Medical History (Updated 08/24/22 @ 13:33 by Srinivas Brandt MD) Acute respiratory failure with hypoxia CAP (community acquired pneumonia) Fall Hyperlipidemia Hypertension Hyponatremia Paroxysmal atrial fibrillation Pneumonia Sepsis SOB (shortness of breath) on exertion Assessment and Plan Assessment and plan all Dx Assessment and Plan for all problems:: Pharmacokinetic dosing service Weight: 85.786 Kilograms Vancomycin single level analysis: Current dose being given: 1500 mg Current dosing interval: 24 hrs Current infusion time (hrs): 2 Single level Trough Data: Trough level obtained: 7.0 mcg/ml Timing of trough - # of hrs before next dose: 0.5 Hrs Desired peak: 35 mcg/ml Desired trough: 12.5 mcg/ml Estimated PK Parameters: New rate constant (estrella): 0.065 hr-1 Half-life: 10.66 Hours Vd from levels: 60.05 Liters (0.7 L/kg) CLvanco=?? 3.903 L/hr Estimated New Dose and Interval Recommended dose: 1536.6 mg Recommended interval: 17.8 Hrs Recommendations: Give Vancomycin 1500 mg q 18 hrs. Infuse over 2 hrs Expected Cpeak: 34.0 mcg/mL E
--- NOTE | 2022-08-26 11:20 | CARE MANAGER ---
Patient is going to need HH services. They requested [facility] and information is faxed. Also will require Oxygen and information sent to [facility]
--- NOTE | 2022-08-26 12:05 | EXP.ACUTE.PN ---
Subjective *Date: 08/26/22 *Time: 18:00 Interval history: No acute respiratory events overnight. Patient admits continued improvement in her symptoms. Afebrile, hemodynamically stable. Responding well to diuretic. No N/V/D, CP, CHEN, confusion. On 3 L on rounds, weaned down to 2. Will monitor oxygen saturation Medical Exam Vital signs and Labs for Last 24 Hours: Vital Signs Temp Pulse Pulse Resp BP Pulse Ox 08/26/22 11:10 75 08/26/22 11:10 77 08/26/22 11:10 90 L 08/26/22 07:50 98.0 F 91 H 20 156/74 H 94 L 08/26/22 05:45 84 08/26/22 05:45 88 08/26/22 05:45 94 L 08/26/22 03:42 98.2 F 104 H 24 144/68 H 91 L 08/25/22 23:45 97.9 F 94 H 22 120/63 92 L 08/25/22 23:38 84 08/25/22 23:38 84 08/25/22 20:00 95 08/25/22 19:31 98.1 F 98 H 24 93/67 L 93 L 08/25/22 17:21 85 08/25/22 17:21 89 08/25/22 17:21 91 L 08/25/22 15:54 98.1 F 83 20 127/67 93 L Intake and Output 08/25/22 08/26/22 08/26/22 23:59 07:59 15:59 Intake Total 360 / 1080 460 / 460 Output Total 0 / 700 400 / 400 Balance 360 / 380 60 / 60 Intake: Intake, Oral Amount 360 / 1080 360 / 360 Intake, Total IV Amount 100 / 100 Cefepime HCl 2 gm In 0.9 % 100 / 100 Sodium Chloride 100 ml @ 200 mls/hr IV Q12H [facility] Rx#:[id number] Output: Output, Urine Amount 0 / 700 400 / 400 Other: Weight 85.786 kg 85.786 kg Patient Weight 08/26/22 23:59 Weight 85.786 kg Laboratory Results - last 24 hr 08/23/22 04:39: Ur L.pneumophila Ag Negative 08/26/22 07:09: Sodium 132 L, Potassium 3.6, Chloride 97 L, Carbon Dioxide 29, Anion Gap 9.6, BUN 11, Creatinine 0.50 L D, Estimated Creat Clear 59, Estimated GFR 118, Est GFR ( Amer) 143 D, Glucose 92, Calcium 7.8 L, Magnesium 2.2, Total Bilirubin 0.7, AST 56 H, ALT 36 D, Alkaline Phosphatase 143 H, Total Protein 6.2 L, Albumin 2.8 L D, Globulin 3.4 H, Albumin/Globulin Ratio 0.8 L 08/26/22 09:02: Vancomycin Trough 7.0 I & O for Labs for Last 24 Hours: Intake & Output 08/23/22 08/24/22 08/25/22 08/26/22 23:59 23:59 23:59 23:59 Intake Total 300 / 300 480 / 600 1080 / 1080 460 / 460 Output Total 380 / 380 950 / 950 700 / 700 400 / 400 Balance -80 / -80 -470 / -350 380 / 380 60 / 60 Weight 86.772 kg 88 kg 86.239 kg 85.786 kg Microbiology Reports for the Last 24 Hours: Microbiology 08/22/22 19:56 Sputum - Expectorated Sputum Gram Stain - Final 08/22/22 19:56 Sputum - Expectorated Sputum Sputum Culture - Preliminary Constitutional: Present no acute distress, obese and chronically ill appearing Head: Present atraumatic and normocephalic ENT: Present normal exam Neck: Present normal inspection Respiratory: Present crackles and normal respiratory effort; Absent accessory muscle use, rhonchi or wheezes Cardiac: Present Reg Rate and Rhythm GI: Present soft and normal bowel sounds; Absent distention or tenderness Extremities: Present normal inspection and full ROM Skin: Present intact; Absent erythema Neuro: Present Grossly Intact, alert, awake, oriented x 3 and moves all extremities Assessment and Plan *Assessment and plan (1) Pneumonia: Status: Acute Category: Medical Code(s): J18.9 - Pneumonia, unspecified organism (2) Hypertension: Status: Acute Category: Medical Code(s): I10 - Essential (primary) hypertension (3) H/O mechanical aortic valve replacement: Status: Acute Category: Surgical Code(s): Z95.2 - Presence of prosthetic heart valve (4) Paroxysmal atrial fibrillation: Status: Acute Category: Medical Code(s): I48.0 - Paroxysmal atrial fibrillation Plan 81-year-old female presenting with traumatic injury secondary to fall on warfarin. Fall likely secondary to bacterial pneumonia post viral upper respiratory infection. Problems addressed as follows: Bacterial pneumoni
--- NOTE | 2022-08-26 12:53 | CARE MANAGER ---
Patient's saturation is 86% on RA at rest.
--- NOTE | 2022-08-26 19:47 | PC.NURSE ---
pt has done well this shift, tolerated 2l o2 via nc with sats around 92%. pt got up to chair for a few hrs and eating well.diuresis pt today with adequate uop. pt has no concerns at this time. cb within reach.
[2022-08-27 00:33] VITALS: PULSE 94; PULSE 96
[2022-08-27 03:39] VITALS: BP 115/52; PULSE 87; RESP 20; TEMP 36.8; O2SAT 93
[2022-08-27 03:40] VITALS: BMI 30.2
[2022-08-27 05:00] VITALS: PULSE 72; PULSE 82; O2SAT 91
--- NOTE | 2022-08-27 05:26 | PC.NURSE ---
No acute changes since taking over care.
--- NOTE | 2022-08-27 07:30 | EXP.DC.SUM ---
General Admission date:: 08/22/22 Discharge date: 08/27/22 HPI HPI HPI: Patient is a 81-year-old female with past medical history of pacemaker on warfarin who presents emergency department for evaluation of shortness of breath and a fall.? History is obtained by family member at bedside, patient was reportedly diagnosed with a viral illness last week, COVID reportedly negative, throughout the week patient has had progressive cough, shortness of breath.? She reports having decreased p.o. intake, adequate urine output. Although it is reduced. Increased sputum. Increased wheeze. Symptoms improved with breathing treatment. No dysuria or complaints. No GI complaints. Progressive diffuse weakness the past week.? Patient is normally ambulatory, is still ambulatory however shorter distances.? Patient reportedly fell backwards onto her head without loss of consciousness this morning.? She is endorsing right humerus bilateral pain and weakness. She was started on ceftriaxone in the ER for bacterial pneumonia. She takes Lasix and lisinopril due to prior medical conditions. She reports having a mechanical aortic valve for which she takes Coumadin and the lisinopril is for her hypertension. Hospital Course Hospital Course Hospital Course: 81-year-old female presenting with traumatic injury secondary to fall on warfarin.? Fall likely secondary to bacterial pneumonia post viral upper respiratory infection.? Problems addressed as follows: Bacterial pneumonia -Admitted for pneumonia and oxygen requirement. Has gradually been weaned on oxygen to 2 L nasal cannula. Maintaining good saturations greater 90% during hospitalization. Will discharge home with oxygen. Initially on ceftriaxone and azithromycin, showing slow progress and had antibiotic coverage broadened for 2 days. At this time has completed azithromycin for pneumonia. Will complete 5 more days of cefdinir for total of 10 days of therapy. Pulmonology was consulted during admission. Patient treated with duo nebs every 6 hours and incentive spirometry. Will discharge home with incentive spirometer and flutter valve. Culture showed normal respiratory perez. Chest x-rays during admission showed concern for component of pulmonary edema/volume overload as well. That problem was addressed as below. Plan for close follow-up with PCP next week for further evaluation and to continue weaning oxygen. Stable for discharge home with family. PT and OT evaluated prior to discharge. Mechanical aortic valve Paroxysmal A. fib -Patient has history of mechanical aortic valve, followed by Dr. Boles in [place]. Chronically on warfarin at home. Goal INR 2.5-3.5. Follows with Coumadin clinic at [facility]. Initially elevated INR above goal. Warfarin was held. As her level resumed to normal, warfarin was reinitiated however level jumped up again to 5.5. Warfarin held at discharge. Plan for close follow-up on Monday with Coumadin clinic, arranged prior to discharge. They will continue to follow and make adjustments with repeat INR on Monday. Additionally cardiology was consulted during admission. Echo obtained showing preserved EF. Patient noted to have intermittent episodes of paroxysmal A. fib. She was initiated on metoprolol during admission after interrogation of her pacemaker showed consistent with intermittent episodes of paroxysmal A. fib. Continue metoprolol twice a day as scheduled. Diuresed during admission for volume component of respiratory distress. Continue diuretic at discharge per med rec. Further management per patient's primary oceanographic meteorologist and PCP. Stable for discharge home with family. Oxygen at bedside prior to discharge Exam Data for Last 24 hours Vital signs and Labs for Last 24 Hours: Temp Pulse Resp BP Pulse Ox 98.3 F 72 20 115/52 L 91 L 08/27/22 03:39 08/27/22 05:00 08/27/22 03:39 08/27/22 03:39 08/27/22 05:00 Laboratory Results -
[2022-08-27 08:00] VITALS: BP 120/59; PULSE 99; RESP 18; TEMP 36.9; O2SAT 87
--- NOTE | 2022-08-27 10:07 | P.PN_ITS ---
Subjective *Date: 08/27/22 *Time: 10:07 Medical Exam Vital signs and Labs for Last 24 Hours: Vital Signs Temp Pulse Pulse Resp BP Pulse Ox 08/27/22 08:00 98.4 F 99 H 18 120/59 L 87 L 08/27/22 05:00 72 08/27/22 05:00 82 08/27/22 05:00 91 L 08/27/22 03:39 98.3 F 87 20 115/52 L 93 L 08/27/22 00:33 94 H 08/27/22 00:33 96 H 08/26/22 23:52 98.6 F 94 H 20 152/65 H 96 08/26/22 21:38 96 08/26/22 20:00 95 08/26/22 19:46 97.6 F 92 H 24 131/58 L 93 L 08/26/22 15:49 98.1 F 87 20 144/81 H 92 L 08/26/22 12:53 86 L 08/26/22 12:00 97.9 F 89 19 109/59 L 92 L 08/26/22 11:10 75 08/26/22 11:10 77 08/26/22 11:10 90 L Intake and Output 08/26/22 08/27/22 08/27/22 23:59 07:59 15:59 Intake Total 360 / 1180 300 / 540 240 / 540 Output Total 0 / 1100 Balance 360 / 80 300 / 540 240 / 540 Intake: Intake, Oral Amount 360 / 1080 240 / 240 Intake, Total IV Amount 300 / 300 Vancomycin/Water For Inj (Peg) 300 / 300 1.5 gm In 300 ml @ 150 mls/hr IV Q18H [facility] Rx#:[id number] Output: Output, Urine Amount 0 / 1100 Other: Number of Unmeasured Voids 1 Weight 85.389 kg Patient Weight 08/27/22 23:59 Weight 85.389 kg I & O for Labs for Last 24 Hours: Intake & Output 08/24/22 08/25/22 08/26/22 08/27/22 23:59 23:59 23:59 23:59 Intake Total 480 / 600 1080 / 1080 1180 / 1180 540 / 540 Output Total 950 / 950 700 / 700 1100 / 1100 Balance -470 / -350 380 / 380 80 / 80 540 / 540 Weight 88 kg 86.239 kg 85.786 kg 85.389 kg Microbiology Reports for the Last 24 Hours: Microbiology 08/22/22 19:56 Sputum - Expectorated Sputum Gram Stain - Final 08/22/22 19:56 Sputum - Expectorated Sputum Sputum Culture - Final Normal Respiratory Lin 08/24/22 14:44 Blood Blood Culture - Preliminary NO GROWTH AFTER 48 HOURS 08/24/22 14:44 Blood Blood Culture - Preliminary NO GROWTH AFTER 48 HOURS The patient's infection will respond to the chosen ABx?: Yes Is the patient receiving the right drug, dose, and route?: Yes Could a more targeted ABx be ordered?: No (BLD CX - X2, SPUTUM CX -, WBC ELEVATED STILL.)
[2022-08-27 10:31] LABS: Basophils # 0.2 K/mm3 (0-0.2); Basophils % 1.7 % (0.1-2.0); Eosinophils # 0.2 K/mm3 (0.0-0.4); Eosinophils % 1.5 % (0.1-12.0); Hematocrit 40.1 % (37.0-47.0); Hemoglobin 13.3 g/dL (12.2-16.2); Lymphocytes # 1.8 K/mm3 (0.7-4.5); Mean Corpuscular HGB Conc 33.1 g/dL (31.8-35.4); Mean Corpuscular Hemoglobin 30.3 pg (27.0-31.2); Mean Corpuscular Volume 91.4 fl (81-99); Mean Platelet Volume 8.1 fl (7.4-10.4); Monocytes # 0.9 K/mm3 (0.1-1.0); Monocytes % 6.3 % (1.7-9.3); Neutrophils # 10.8 K/mm3 (1.8-7.8); Neutrophils % 77.5 % (37.0-80.0); Platelet Count 450 K/mm3 (142-424); Red Blood Count 4.39 M/mm3 (4.20-5.40); Red Cell Distribution Width 13.7 % (11.5-17.5)
[2022-08-27 10:35] VITALS: O2SAT 94
[2022-08-27 10:36] LABS: Chloride 95 mmol/L (98-107)
[2022-08-27 10:37] LABS: Potassium 3.1 mmoL/L (3.5-5.1); Sodium 135 mmol/L (136-145)
[2022-08-27 10:39] LABS: Blood Urea Nitrogen 14 mg/dl (7-17); Creatinine Clearance Estimated 58 mL/min (50-200); Estimated Glomerular Filt Rate 96 ml/min (>60); GFR (African American) 116 ML/MIN (>60)
[2022-08-27 10:40] LABS: Anion Gap 12.1 mEq/L (5-15); Calcium 7.9 mg/dl (8.4-10.2); Carbon Dioxide 31 mmol/L (22.0-30.0); Glucose 115 mg/dl (74-100)
--- NOTE | 2022-08-27 10:41 | PC.NURSE ---
Report given to AARON Moran at this time
[2022-08-27 10:54] LABS: INR 5.56 (0.9-1.1); Prothrombin Time 54.5 seconds (10.1-12.5)
[2022-08-27 11:40] VITALS: PULSE 72; PULSE 75; O2SAT 90
[2022-08-29 18:04] LABS: Body Fluid Culture, Sterile Not indicated. (.); Organism ID Not indicated. (.); Specimen Source Urine (.); Streptococcus pneumoniae Ag Negative (Negative)
== END 2022-08-27 12:35 | disposition home or self-care (01) | DRG 193 ==
LOC: ER 21:17 → 2ND 22:09
PROVIDERS: Admitting Provider Student in an Organized Health Care Education/Training Program; Emergency Provider Emergency Medicine; PCP Internal Medicine Adolescent Medicine; Visit Provider Internal Medicine Adolescent Medicine
DX: J15.9 Unspecified bacterial pneumonia (principal); J96.01 Acute respiratory failure with hypoxia; E87.1 Hypo-osmolality and hyponatremia; E87.20 Acidosis, unspecified; Z79.01 Long term (current) use of anticoagulants; Z95.2 Presence of prosthetic heart valve; S09.90XA Unspecified injury of head, initial encounter; W18.30XA Fall on same level, unspecified, initial encounter; J40 Bronchitis, not specified as acute or chronic; E86.1 Hypovolemia; R74.01 Elevation of levels of liver transaminase levels
CPT/HCPCS: 36415; 70450; 71045; 71275; 72125; 73590; 74174; 76705; 80048; 80053; 80202; 81001; 83605; 83735; 84100; 84443; 85007; 85025; 85610; 87040; 87070; 87205; 87899; 93005; 93306; 94640; 94667; 94668; 94761; 97162; 97165; 99285; C9803; G0238; J0456; J0696; Q9967; U0003; U0005

== ENCOUNTER 2022-08-29 14:54 | Outpatient (CLI) | payer MEDICARE, OTHER, SELFPAY ==
[2022-08-29 15:47] LABS: PHA INR Fingerstick 1.9 (0.9-1.1)
== END 2022-08-29 15:58 ==
LOC: ACC 14:55
PROVIDERS: PCP Internal Medicine Adolescent Medicine; Visit Provider Internal Medicine Adolescent Medicine
DX: Z51.81 Encounter for therapeutic drug level monitoring (principal); Z79.01 Long term (current) use of anticoagulants; Z95.2 Presence of prosthetic heart valve
CPT/HCPCS: 85610; 99211; G0463

== ENCOUNTER 2022-09-01 11:58 | Outpatient (CLI) | payer MEDICARE, OTHER, SELFPAY ==
[2022-09-01 12:25] LABS: PHA INR Fingerstick 2.2 (0.9-1.1)
== END 2022-09-01 12:27 ==
LOC: ACC 12:00
PROVIDERS: PCP Nurse Practitioner Family; Visit Provider Nurse Practitioner Family
DX: Z51.81 Encounter for therapeutic drug level monitoring (principal); Z79.01 Long term (current) use of anticoagulants; Z95.2 Presence of prosthetic heart valve
CPT/HCPCS: 85610; 99211; G0463

== ENCOUNTER → 2022-09-05 13:58 | Outpatient (CLI) | payer MEDICARE, OTHER, SELFPAY ==
--- NOTE | 2022-09-05 14:10 | XR_ITS ---
FINAL REPORT CLINICAL HISTORY: PNEUMONIA COMPARISON: August 26, 2022 FINDINGS: Two views of the chest were obtained. There are postoperative changes from median sternotomy. A left subclavian pacemaker is present. There is cardiomegaly. The mediastinum is normal. There has been interval improvement in the bilateral pulmonary opacities. Mild bilateral opacities persist. There is no pneumothorax. The bony thorax is intact. IMPRESSION: Improved but persistent mild bilateral opacities. Reviewed, Interpreted and Dictated by Phil Alcantar III, MD Transcribed by Liliam Hilliard Authenticated and [facility]
[2022-09-05 15:33] LABS: Basophils # 0.1 K/mm3 (0-0.2); Basophils % 1.6 % (0.1-2.0); Eosinophils # 0.1 K/mm3 (0.0-0.4); Eosinophils % 1.2 % (0.1-12.0); Hematocrit 43.4 % (37.0-47.0); Hemoglobin 13.6 g/dL (12.2-16.2); Lymphocytes # 3.6 K/mm3 (0.7-4.5); Lymphocytes % 39.4 % (10-50); Mean Corpuscular HGB Conc 31.3 g/dL (31.8-35.4); Mean Corpuscular Volume 95.7 fl (81-99); Mean Platelet Volume 7.8 fl (7.4-10.4); Monocytes # 0.6 K/mm3 (0.1-1.0); Monocytes % 6.2 % (1.7-9.3); Neutrophils # 4.7 K/mm3 (1.8-7.8); Neutrophils % 51.6 % (37.0-80.0); Platelet Count 506 K/mm3 (142-424); Red Blood Count 4.53 M/mm3 (4.20-5.40); Red Cell Distribution Width 14.1 % (11.5-17.5); White Blood Count 9.1 K/mm3 (4.8-10.8)
[2022-09-05 15:36] LABS: INR 1.95 (0.9-1.1); Prothrombin Time 20.3 seconds (10.1-12.5)
[2022-09-05 16:16] LABS: Anion Gap 9.8 mEq/L (5-15); Blood Urea Nitrogen 15 mg/dl (7-17); Calcium 8.4 mg/dl (8.4-10.2); Carbon Dioxide 35 mmol/L (22.0-30.0); Chloride 96 mmol/L (98-107); Estimated Glomerular Filt Rate 69 ml/min (>60); GFR (African American) 83 ML/MIN (>60); Glucose 99 mg/dl (74-100); Potassium 4.8 mmoL/L (3.5-5.1); Sodium 136 mmol/L (136-145)
== END ==
PROVIDERS: PCP Nurse Practitioner Family; Visit Provider Nurse Practitioner Family
DX: J18.9 Pneumonia, unspecified organism (principal); Z51.81 Encounter for therapeutic drug level monitoring; Z79.01 Long term (current) use of anticoagulants
CPT/HCPCS: 36415; 71046; 80048; 85025; 85610

== ENCOUNTER 2022-09-21 14:24 | Outpatient (CLI) | payer MEDICARE, OTHER, SELFPAY ==
[2022-09-21 14:51] LABS: PHA INR Fingerstick 5.2 (0.9-1.1)
== END 2022-09-21 14:54 ==
LOC: ACC 14:25
PROVIDERS: PCP Nurse Practitioner Family; Visit Provider Internal Medicine Adolescent Medicine
DX: Z51.81 Encounter for therapeutic drug level monitoring (principal); Z79.01 Long term (current) use of anticoagulants
CPT/HCPCS: 85610; 99211; G0463

== ENCOUNTER 2022-09-28 14:57 | Outpatient (CLI) | payer MEDICARE, OTHER, SELFPAY ==
[2022-09-28 15:48] LABS: PHA INR Fingerstick 1.8 (0.9-1.1)
== END 2022-09-28 16:11 ==
LOC: ACC 15:00
PROVIDERS: PCP Internal Medicine Adolescent Medicine; Visit Provider Internal Medicine Adolescent Medicine
DX: Z51.81 Encounter for therapeutic drug level monitoring (principal); Z79.01 Long term (current) use of anticoagulants; Z95.2 Presence of prosthetic heart valve
CPT/HCPCS: 85610; 99211; G0463

== ENCOUNTER 2022-10-12 13:50 | Outpatient (CLI) | payer MEDICARE, OTHER, SELFPAY ==
[2022-10-12 15:45] LABS: PHA INR Fingerstick 2.7 (0.9-1.1)
== END 2022-10-12 16:01 ==
LOC: ACC 13:52
PROVIDERS: PCP Internal Medicine Adolescent Medicine; Visit Provider Internal Medicine Adolescent Medicine
DX: Z51.81 Encounter for therapeutic drug level monitoring (principal); Z79.01 Long term (current) use of anticoagulants
CPT/HCPCS: 85610; 99211; G0463

== ENCOUNTER 2022-11-02 14:54 | Outpatient (CLI) | payer MEDICARE, OTHER, SELFPAY ==
[2022-11-02 15:14] LABS: PHA INR Fingerstick 2.6 (0.9-1.1)
== END 2022-11-02 15:15 ==
LOC: ACC 14:55
PROVIDERS: PCP Internal Medicine Adolescent Medicine; Visit Provider Internal Medicine Adolescent Medicine
DX: Z51.81 Encounter for therapeutic drug level monitoring (principal); Z79.01 Long term (current) use of anticoagulants; Z95.2 Presence of prosthetic heart valve
CPT/HCPCS: 85610; 99211; G0463

== ENCOUNTER 2022-12-12 15:03 | Outpatient (CLI) | payer MEDICARE, OTHER, SELFPAY ==
[2022-12-12 15:44] LABS: PHA INR Fingerstick 2.4 (0.9-1.1)
== END 2022-12-12 16:25 ==
LOC: ACC 15:04
PROVIDERS: PCP Internal Medicine Adolescent Medicine; Visit Provider Internal Medicine Adolescent Medicine
DX: Z51.81 Encounter for therapeutic drug level monitoring (principal); Z79.01 Long term (current) use of anticoagulants
CPT/HCPCS: 85610; 99211; G0463

== ENCOUNTER 2023-01-17 08:47 | Day surgery (SDC) | payer MEDICARE, OTHER, SELFPAY ==
[2023-01-13 11:54] VITALS: BMI 31.4
[2023-01-17] VITALS (7 sets, daily range): BP systolic 133–151; BP diastolic 63–81; PULSE 61–71; RESP 16–18; TEMP 36.2; O2SAT 92–95
== END 2023-01-17 10:48 | disposition home or self-care (01) ==
PROVIDERS: PCP Internal Medicine Adolescent Medicine; Visit Provider Ophthalmology
DX: H26.9 Unspecified cataract (principal); Z79.899 Other long term (current) drug therapy
CPT/HCPCS: 66984; V2632

== ENCOUNTER 2023-01-27 14:51 | Outpatient (CLI) | payer MEDICARE, OTHER, SELFPAY | END 2023-01-27 15:31 | LOC: ACC 14:52 | PROVIDERS: PCP Internal Medicine Adolescent Medicine; Visit Provider Internal Medicine Adolescent Medicine | DX: Z51.81 Encounter for therapeutic drug level monitoring (principal); Z79.01 Long term (current) use of anticoagulants | CPT/HCPCS: 85610; 99211; G0463 ==

== ENCOUNTER 2023-03-03 14:47 | Outpatient (CLI) | payer MEDICARE, OTHER, SELFPAY | END 2023-03-03 15:14 | LOC: ACC 14:48 | PROVIDERS: PCP Internal Medicine Adolescent Medicine; Visit Provider Internal Medicine Adolescent Medicine | DX: Z79.01 Long term (current) use of anticoagulants (principal); Z51.81 Encounter for therapeutic drug level monitoring | CPT/HCPCS: 85610; 99211; G0463 ==

== ENCOUNTER 2023-04-05 14:57 | Outpatient (CLI) | payer MEDICARE, OTHER, SELFPAY | END 2023-04-05 15:17 | LOC: ACC 14:58 | PROVIDERS: PCP Internal Medicine Adolescent Medicine; Visit Provider Internal Medicine Adolescent Medicine | DX: Z79.01 Long term (current) use of anticoagulants (principal); Z51.81 Encounter for therapeutic drug level monitoring; Z95.2 Presence of prosthetic heart valve | CPT/HCPCS: 85610; 99211; G0463 ==

== ENCOUNTER 2023-04-19 14:57 | Outpatient (CLI) | payer MEDICARE, OTHER, SELFPAY ==
[2023-04-19 16:13] LABS: PHA INR Fingerstick 3.5 (0.9-1.1)
== END 2023-04-19 16:16 ==
LOC: ACC 14:58
PROVIDERS: PCP Internal Medicine Adolescent Medicine; Visit Provider Internal Medicine Adolescent Medicine
DX: Z79.01 Long term (current) use of anticoagulants (principal); Z51.81 Encounter for therapeutic drug level monitoring; Z95.2 Presence of prosthetic heart valve
CPT/HCPCS: 85610; 99211; G0463

== ENCOUNTER 2023-05-17 15:18 | Outpatient (CLI) | payer MEDICARE, OTHER, SELFPAY ==
[2023-05-17 16:08] LABS: PHA INR Fingerstick 2.2 (0.9-1.1)
== END 2023-05-17 16:17 ==
LOC: ACC 15:19
PROVIDERS: PCP Internal Medicine Adolescent Medicine; Visit Provider Internal Medicine Adolescent Medicine
DX: Z79.01 Long term (current) use of anticoagulants (principal); Z51.81 Encounter for therapeutic drug level monitoring; Z95.2 Presence of prosthetic heart valve
CPT/HCPCS: 85610; 99211; G0463

== ENCOUNTER 2023-06-19 15:07 | Outpatient (CLI) | payer MEDICARE, OTHER, SELFPAY ==
[2023-06-19 15:46] LABS: PHA INR Fingerstick 3.2 (0.9-1.1)
== END 2023-06-19 15:48 ==
LOC: ACC 15:08
PROVIDERS: PCP Internal Medicine Adolescent Medicine; Visit Provider Internal Medicine Adolescent Medicine
DX: Z79.01 Long term (current) use of anticoagulants (principal); Z51.81 Encounter for therapeutic drug level monitoring; Z95.2 Presence of prosthetic heart valve
CPT/HCPCS: 85610; 99211; G0463

== ENCOUNTER 2023-08-04 14:52 | Outpatient (CLI) | payer MEDICARE, OTHER, SELFPAY ==
[2023-08-04 16:02] LABS: PHA INR Fingerstick 3.1 (0.9-1.1)
== END 2023-08-04 16:07 ==
LOC: ACC 14:53
PROVIDERS: PCP Internal Medicine Adolescent Medicine; Visit Provider Internal Medicine Adolescent Medicine
DX: Z79.01 Long term (current) use of anticoagulants (principal); Z51.81 Encounter for therapeutic drug level monitoring
CPT/HCPCS: 85610; 99211; G0463

== ENCOUNTER 2023-09-13 15:51 | Outpatient (CLI) | payer MEDICARE, OTHER, SELFPAY ==
[2023-09-13 16:13] LABS: PHA INR Fingerstick 2.2 (0.9-1.1)
== END 2023-09-13 16:14 ==
LOC: ACC 15:53
PROVIDERS: PCP Nurse Practitioner Family; Visit Provider Internal Medicine Adolescent Medicine
DX: Z79.01 Long term (current) use of anticoagulants (principal); Z51.81 Encounter for therapeutic drug level monitoring
CPT/HCPCS: 85610; 99211; G0463

== ENCOUNTER 2023-10-30 14:48 | Outpatient (CLI) | payer MEDICARE, OTHER, SELFPAY | END 2023-10-30 15:14 | LOC: ACC 14:49 | PROVIDERS: PCP Nurse Practitioner Family; Visit Provider Internal Medicine Adolescent Medicine | DX: Z79.01 Long term (current) use of anticoagulants (principal); I48.91 Unspecified atrial fibrillation; Z51.81 Encounter for therapeutic drug level monitoring | CPT/HCPCS: 85610; 99211; G0463 ==

== ENCOUNTER 2023-12-18 14:29 | Outpatient (CLI) | payer MEDICARE, OTHER, SELFPAY ==
[2023-12-18 14:54] LABS: PHA INR Fingerstick 3.2 (0.9-1.1)
== END 2023-12-18 14:56 ==
LOC: ACC 14:31
PROVIDERS: PCP Nurse Practitioner Family; Visit Provider Internal Medicine Adolescent Medicine
DX: Z79.01 Long term (current) use of anticoagulants (principal); Z51.81 Encounter for therapeutic drug level monitoring
CPT/HCPCS: 85610; 99211; G0463

== ENCOUNTER 2024-01-29 14:26 | Outpatient (CLI) | payer MEDICARE, OTHER, SELFPAY ==
[2024-01-29 14:47] LABS: PHA INR Fingerstick 3.9 (0.9-1.1)
== END 2024-01-29 14:48 ==
LOC: ACC 14:27
PROVIDERS: PCP Nurse Practitioner Family; Visit Provider Internal Medicine Adolescent Medicine
DX: Z79.01 Long term (current) use of anticoagulants (principal); Z51.81 Encounter for therapeutic drug level monitoring; I48.91 Unspecified atrial fibrillation
CPT/HCPCS: 85610; 99211; G0463

== ENCOUNTER 2024-02-12 14:36 | Outpatient (CLI) | payer MEDICARE, OTHER, SELFPAY ==
[2024-02-12 15:24] LABS: PHA INR Fingerstick 2.5 (0.9-1.1)
== END 2024-02-12 15:29 ==
LOC: ACC 14:41
PROVIDERS: PCP Nurse Practitioner Family; Visit Provider Internal Medicine Adolescent Medicine
DX: Z79.01 Long term (current) use of anticoagulants (principal); Z51.81 Encounter for therapeutic drug level monitoring; I48.91 Unspecified atrial fibrillation
CPT/HCPCS: 85610; 99211; G0463

== ENCOUNTER 2024-02-26 14:58 | Outpatient (CLI) | payer MEDICARE, OTHER, SELFPAY | END 2024-02-26 15:33 | LOC: ACC 15:00 | PROVIDERS: PCP Nurse Practitioner Family; Visit Provider Internal Medicine Adolescent Medicine | DX: Z79.01 Long term (current) use of anticoagulants (principal); Z95.2 Presence of prosthetic heart valve | CPT/HCPCS: 85610; 99211; G0463 ==

== ENCOUNTER 2024-04-10 14:45 | Outpatient (CLI) | payer MEDICARE, OTHER, SELFPAY ==
[2024-04-10 15:59] LABS: PHA INR Fingerstick 2.7 (0.9-1.1)
== END 2024-04-10 23:59 | disposition home or self-care (01) ==
LOC: ACC 14:46
PROVIDERS: PCP Nurse Practitioner Family; Visit Provider Internal Medicine Adolescent Medicine
DX: Z79.01 Long term (current) use of anticoagulants (principal); Z95.2 Presence of prosthetic heart valve
CPT/HCPCS: 85610; 99211; G0463

== ENCOUNTER 2024-05-24 12:47 | Outpatient (CLI) | payer MEDICARE, OTHER, SELFPAY ==
[2024-05-24 16:03] LABS: PHA INR Fingerstick 2.7 (0.9-1.1)
== END 2024-05-24 16:34 ==
LOC: ACC 12:49
PROVIDERS: PCP Internal Medicine Adolescent Medicine; Visit Provider Internal Medicine Adolescent Medicine
DX: Z79.01 Long term (current) use of anticoagulants (principal); Z95.2 Presence of prosthetic heart valve
CPT/HCPCS: 85610; 99211; G0463

== ENCOUNTER 2024-07-10 15:39 | Outpatient (CLI) | payer MEDICARE, OTHER, SELFPAY ==
[2024-07-10 15:59] LABS: PHA INR Fingerstick 3.4 (0.9-1.1)
== END 2024-07-10 16:00 ==
LOC: ACC 15:42
PROVIDERS: PCP Nurse Practitioner Family; Visit Provider Internal Medicine Adolescent Medicine
DX: Z79.01 Long term (current) use of anticoagulants (principal); Z95.2 Presence of prosthetic heart valve
CPT/HCPCS: 85610; 99211; G0463

== ENCOUNTER 2024-08-23 14:26 | Outpatient (CLI) | payer MEDICARE, OTHER, SELFPAY ==
[2024-08-23 15:14] LABS: PHA INR Fingerstick 3.7 (0.9-1.1)
== END 2024-08-23 15:16 ==
LOC: ACC 14:30
PROVIDERS: PCP Nurse Practitioner Family; Visit Provider Internal Medicine Adolescent Medicine
DX: Z79.01 Long term (current) use of anticoagulants (principal); Z95.2 Presence of prosthetic heart valve
CPT/HCPCS: 85610; 99211; G0463

== ENCOUNTER 2024-09-25 14:37 | Outpatient (CLI) | payer MEDICARE, OTHER, SELFPAY ==
[2024-09-25 15:32] LABS: PHA INR Fingerstick 3.9 (0.9-1.1)
== END 2024-09-25 15:39 ==
LOC: ACC 14:39
PROVIDERS: PCP Internal Medicine Adolescent Medicine; Visit Provider Internal Medicine Adolescent Medicine
DX: Z79.01 Long term (current) use of anticoagulants (principal); Z95.2 Presence of prosthetic heart valve
CPT/HCPCS: 85610; 99211; G0463

== ENCOUNTER 2024-10-11 14:56 | Outpatient (CLI) | payer MEDICARE, OTHER, SELFPAY | END 2024-10-11 15:37 | LOC: ACC 14:58 | PROVIDERS: PCP Internal Medicine Adolescent Medicine; Visit Provider Internal Medicine Adolescent Medicine | DX: Z79.01 Long term (current) use of anticoagulants (principal); Z95.2 Presence of prosthetic heart valve | CPT/HCPCS: 85610; 99211; G0463 ==

== ENCOUNTER 2024-11-01 14:57 | Outpatient (CLI) | payer MEDICARE, OTHER, SELFPAY ==
[2024-11-01 15:39] LABS: PHA INR Fingerstick 3.7 (0.9-1.1)
== END 2024-11-01 15:43 ==
LOC: ACC 14:59
PROVIDERS: PCP Nurse Practitioner Family; Visit Provider Internal Medicine Adolescent Medicine
DX: Z79.01 Long term (current) use of anticoagulants (principal); Z95.2 Presence of prosthetic heart valve
CPT/HCPCS: 85610; 99211; G0463

== ENCOUNTER 2024-11-19 16:03 | Outpatient (CLI) | payer MEDICARE, OTHER, SELFPAY ==
--- NOTE | 2024-11-19 16:07 | XR_ITS ---
FINAL REPORT CLINICAL HISTORY: ACUTE COUGH COMPARISON: 09/05/2022 FINDINGS: PA and lateral views of the chest are obtained. The patient has undergone a prior midline sternotomy. There is no change in positioning of the left-sided pacemaker. The cardiac and mediastinal silhouettes are within normal limits. The lungs are clear. There is no pleural effusion, pneumothorax, or acute osseous abnormality. IMPRESSION: No radiographic evidence of acute cardiac or pulmonary disease. Reviewed, Interpreted and Dictated by Marleen Arnold MD Transcribed by Kimberly Johansen Authenticated and . [facility]
== END 2024-11-19 23:59 | disposition home or self-care (01) ==
LOC: RAD 16:04
PROVIDERS: PCP Physician Assistant; Visit Provider Physician Assistant
DX: R05.1 Acute cough (principal)
CPT/HCPCS: 71046

== ENCOUNTER 2024-12-04 14:47 | Outpatient (CLI) | payer MEDICARE, OTHER, SELFPAY ==
[2024-12-04 15:55] LABS: PHA INR Fingerstick 3.8 (0.9-1.1)
== END 2024-12-04 15:56 ==
LOC: ACC 14:50
PROVIDERS: PCP Internal Medicine Adolescent Medicine; Visit Provider Internal Medicine Adolescent Medicine
DX: Z79.01 Long term (current) use of anticoagulants (principal); Z95.2 Presence of prosthetic heart valve
CPT/HCPCS: 85610; 99211; G0463

== ENCOUNTER 2025-01-08 11:35 | Outpatient (CLI) | payer MEDICARE, OTHER, SELFPAY ==
[2025-01-08 13:57] LABS: PHA INR Fingerstick 2.3 (0.9-1.1)
== END 2025-01-08 14:03 ==
LOC: ACC 11:37
PROVIDERS: PCP Nurse Practitioner Family; Visit Provider Internal Medicine Adolescent Medicine
DX: Z79.01 Long term (current) use of anticoagulants (principal); Z95.2 Presence of prosthetic heart valve
CPT/HCPCS: 85610; 99211; G0463

== ENCOUNTER 2025-02-14 14:53 | Outpatient (CLI) | payer MEDICARE, OTHER, SELFPAY ==
--- OUTSIDE RECORDS SUMMARY | 2024-12-06 06:00 | XMS_ITS | Encounter Summary ---
Author Organization [facility] [facility] [employer] Address [address] [place] [address] Care Team Providers Care Sales Consulting Director Name Role Phone Brian Flores MD Primary Care Provider [phone] Reason for Visit * Reason Comments Pacemaker /ICD Home Monitoring Encounter Details Date Type Department Care Team (Late st Contact Info) Description 12/06/2024 6:00 AM EDT Clinical Support [facility] Electrophysiology [address] [place], [place] [phone] [place] [address] [place] [address] [address] [place] [address] Encounter for adjustment or management of cardiac device (Primary Dx); Complete atrioventricular block (HCC); Presence of cardiac pacemaker Social History Tobacco Use Types Packs/Day Years Used Date Smoking Tobacco: Never Smokeless Tobacco: Never Interpersonal Safety Answer Date Record ed Family or friends hurt you Not on file 09/14 Family or friends insult you Not on file Family or friends threaten you Not on file 0 09/14/2023 Family or friends scream or curse at you Not on file 09/14/2023 Housing Stability Answer Date Recorded Living situation today Not on file Living situation problems Not on file 2023 Family and Community Support Answer Thong e Recorded Help with Day to Day Activities Not on file 09/14/2023 Feeling Lonely or Isolated Not on file 09/14 Educational Attainment Answer Date Ruddy rded Speak language other than Gabonese at home Not on file 09/14/2023 Want help with school or training Not on file 09/14/2023 Depression Answer Date Recorded PHQ-2 Risk Not on file 09/14/2023 Disabilities Answer Date Recorded Difficulty concentrating Not on file 024 Difficulty doing errands alone Not on file 0 09/14/2023 Substance Use Answer Date Recorded Used prescription meds for non-medical reasons N ot on file 09/14/2023 Used illegal drugs past 12 months Not on file 09/14/2023 Comments Unknown Sex and Gender Information Value Date Recorded Sex Assigned at Not on file Legal Sex Female 3:20 PM CDT Gender Identity Not on file Sexual Orientation Not on file documented as of this encounter Plan of Treatment Upcoming Encounters Date Type Department Care Team (Late st Contact Info) Description 03/13/2025 1:45 PM EDT Office Visit [facility] Electrophysiology [address] [place] [phone] [place] [address] [place] [address] [address] [place] [address] documented as of this encounter Visit Diagnoses Diagnosis Encounter for adjustment or management of cardiac device- Primary Complete atrioventricular block (HCC) Atrioventricular block, complete Presence of cardiac pacemaker Cardiac pacemaker in situ documented in this encounter Care Teams Sales Consulting Director Relationship Specialty Start Date End Date Brian Flores MD [address] [place] [address] PCP - General Adolescent Medicine 07/19/22 documented as of this encounter
--- OUTSIDE RECORDS SUMMARY | 2025-01-30 14:00 | XMS_ITS | Encounter Summary ---
Author Organization [facility] Address [address] [place] [address] Care Team Providers Care Applied Behavior Specialist Name Role Phone Brian Flores MD Primary Care Provider [phone] Reason for Visit * Reason Comments Follow-up Encounter Details Date Type Department Care Team (Late st Contact Info) Description 01/30/2025 2:00 PM EDT Office Visit [facility] Cardiology [address] [phone] Rae Castro PA-C [address] [facility] [address] [place] [address] H/O mechanical aortic valve replacement (Primary Dx); [...] Date Ruddy rded Speak language other than Ugandan at home Not on file 09/14/2023 Want [...] 6 month followup. Has INR checked at [facility]. Pt complains of chest pain at [...] Skin: Negative. Neurological: Negative. Endo/Heme/Allergies: Negative. Allergies [place], Hydromorphone, and Fluticasone Medications Outpatient Medications Marked [...] times a weekMonday & Monday. warfarin (COUMADIN, JANTOVEN) 7.5 MG tablet Take 1 tablet (7.5 [...] Description 03/13/2025 1:45 PM EDT Office Visit [facility] Electrophysiology [address] [place] [phone] Troy Alcantara MD [address] [facility] [address] [place] [address] documented as of this encounter Visit Diagnoses Diagnosis H/O mechanical aortic valve replacement- Primary Complete atrioventricular block (HCC) Atrioventricular block, complete Paroxysmal atrial fibrillation (HCC) Atrial fibrillation documented in this encounter Care Teams Applied Behavior Specialist Relationship Specialty Start Date End Date Brian Flores MD [address] [place] [address] PCP - General Adolescent Medicine 07/19/22 documented as of this encounter
--- OUTSIDE RECORDS SUMMARY | 2025-02-14 14:59 | XMS_ITS | Encounter Summary ---
Author Organization [facility] Address [address] [place] [address] Care Team Providers Care Transformer Mechanic Name Role Phone Brian Flores MD Primary Care Provider [phone] Encounter Details Date Type Department Care Team (Latest Contact Info) Description 01/30/2025 Travel Social History Tobacco Use Types Packs/Day Years [...] Date Ruddy rded Speak language other than Nicaraguan at home Not on file 09/14/2023 Want [...] Description 03/13/2025 1:45 PM EDT Office Visit [facility] Electrophysiology [address] [place] [phone] [place] [address] [place] [address] [address] [place] [phone] documented as of this encounter Visit Diagnoses Not on filedocumented in this encounter Care Teams Transformer Mechanic Relationship Specialty Start Date End Date Brian Flores MD [address] [place] [address] PCP - General Adolescent Medicine 07/19/22 documented as of this encounter
--- OUTSIDE RECORDS SUMMARY | 2025-02-14 14:59 | XMS_ITS | Clinical Summary ---
Author Organization [employer] Address [address] [place] [address] Care Team Providers Care Field Spec Name Role Phone Brian Flores MD Primary Care Provider [phone] Allergies Active Allergy Reactions Criticality Noted Date Comments Fluticasone Low 01/28/2021 Other reaction(s): DIZZY LIGHT HEADED Hydromorphone 10/10/2022 [place] Medium 01/28/2021 Other reaction(s): MAKES CRAZY Medications ALPRAZolam (XANAX) 0.25 MG tablet Take 1 tablet (0.25 mg total) by mouth every night as needed. Active rosuvastatin (CRESTOR) 5 MG tablet Take 1 tablet (5 mg total) by mouth daily. Active escitalopram oxalate (LEXAPRO) 20 MG tablet Take 1 tablet (20 mg total) by mouth daily. Active fexofenadine-ps eudoephedrine (LAURA-D 24) 180-240 mg per 24 hr tablet Take 1 tablet by mouth daily. Active lisinopriL (PRINIVIL,ZESTR IL) 5 MG tablet Take 0.5 tablets (2.5 mg total) by mouth daily. Active montelukast (SINGULAIR) 10 mg tablet Take 1 tablet (10 mg total) by mouth nightly. Active nitroglycerin (NITROSTAT) 0.[address] 1 tablet (0.4 mg total) under the tongue every 5 (five) minutes as needed Put 1 pill under tongue every 5min as needed for chest pain.No more than 3 doses in 15min.Call 911 if pain unrelieved 5min after 1st dose. Active omeprazole (PriLOSEC) 40 MG capsule Take 1 capsule (40 mg total) by mouth daily. Active potassium chloride (KLOR-CON-M) 10 MEQ CR tablet Take 1 tablet (10 mEq total) by mouth daily. Active traZODone (DESYREL) 50 MG tablet Take 1 tablet (50 mg total) by mouth nightly. Active warfarin (COUMADIN, JANTOVEN) 7.5 MG tablet Take 1 tablet (7.5 mg total) by mouth as directed Monday, Monday, & . Active warfarin (COUMADIN, JANTOVEN) 5 MG tablet Take 1 tablet (5 mg total) by mouth 4 (four) times a week Monday & Monday. Active furosemide (LASIX) 20 MG tablet Take 1 tablet (20 mg total) by mouth daily. 20 tablet 4 Active amiodarone (PACERONE) 200 MG tablet Take 1 tablet (200 mg total) by mouth 2 (two) times daily. 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 Hyperlipidemia 04/13/2021 Hypertension 04/13/2021 Resolved Problems Problem Noted Date Diagnosed Date Resolved Date Palpitations 07/01/2021 01/06/2024 Shortness of breath 04/13/2021 01/06/20 24 Encounter for general adult medical examination without abnormal findings 08/13/2020 Insomnia 10/23/2019 01/06/2024 Encounters Date Type Department Care Team Description 01/30/2025 2:00 PM EDT Office Visit [facility] Cardiology [address] [place] [phone] Rae Castro PA-C H/O mechanical aortic valve replacement (Primary Dx); Complete atrioventricular block (HCC); Paroxysmal atrial fibrillation (HCC) 01/30/2025 Travel 12/06/2024 6:00 AM EDT Clinical Support [facility] Electrophysiology [address] [place] [phone] Troy Alcantara MD Encounter for adjustment or management of cardiac device (Primary Dx); Complete atrioventricular block (HCC); Presence of cardiac pacemaker from Last 3 Months Social History Tobacco Use Types Packs/Day Years Used Date Smoking Tobacco: Never Smokeless Tobacco: Never Tobacco Cessation:Counseling Given: Not Answered Interpersonal Safety Answer Date Record ed Family [...] Date Ruddy rded Speak language other than Prydeinig at home Not on file 09/14/2023 Want [...] on file Sexual Orientation Not on file Last Filed Vital Signs Vital Sign Reading Time Taken Comments Blood Pressure 130/82 01/30/2025 2:29 PM EDT Pulse 78 01/30/2025 2:29 PM EDT Temperature - - Respiratory Rate - - Oxygen Saturation 94% 10/12/2023 1:14 PM EST Inhaled Oxygen Concentration - - Weight 86.6 kg (191 lb) 01/30/2025 2:29 PM EDT Height 165.1 cm (5' 5 ) 01/30/2025 2:29 PM EDT Body Mass Index 31.78 01/30/2025 2:29 PM EDT Plan of Treatment Upcoming Encounters Date Type Department Care Team (Late st Contact Info) Description 03/13/2025 1:45 PM EDT Office Visit [facility] Electrophysiology [address] [place] [phone] Troy Alcantara MD [address] [facility] [address] [place] [address] Health Maintenance Due Date Last Done Comments DXA SCAN 1939 Depression Screening (12+) 1951 DTAP/TDAP/TD VACCINES (1 - Tdap) 12/13/1958 Pneumococcal 50+ years (1 of 1 - PCV) 12/13/1989 Shingles Vaccine (Zoster) (1 of 2) 12/13/1989 Medicare Initial AWV G0438 11/27/2005 Respiratory Syncytial Virus (RSV) Adult or (1 - 1-dose 75+ series) 12/13/2014 COVID-19 VACCINE ( - 2023-2 5 season) 2024 Falls Risk Screening 08/28/2024 Influenza Vaccine (Season Ended) 2025 06/10/2021, 05/07/2020, 05/09/2019, Additional history exists Tobacco Cessation Counseling and Screening (12+) 01/30/2026 01/30/2025 Medical Devices Implanted Type Area Lumber Checker Device Identifier Shelf Expiration Date Model / Serial / Lot Pacemakers-07/29 Implanted:08/20 by Troy Alcantara MD (Quantity not on file) Pacemakers [employer] MARJAN / [id number] / Insurance MEDICARE PART A B [employer] [facility] SUPP Care Teams Field Spec Relationship Specialty Start Date End Date Brian Flores MD [address] [place] [address] PCP - General Adolescent Medicine 07/19/22
--- OUTSIDE RECORDS SUMMARY | 2025-02-14 14:59 | XMS_ITS | Referral Summary ---
Author Organization [employer] [facility] Address [address] [place] [address] Care Team Providers Care Dye Expert Name Role Phone Brian Flores MD Primary Care Provider [phone] Encounters Date Type Department Care Team Description 01/30/2025 Travel 01/30/2025 2:00 PM EDT Office Visit [facility] Cardiology [address] [place] [phone] Rae Castro PA-C H/O mechanical aortic valve replacement (Primary Dx); Complete atrioventricular block (HCC); Paroxysmal atrial fibrillation (HCC) 12/06/2024 6:00 AM EDT Clinical Support [facility] Electrophysiology [address] [place] [phone] Troy Alcantara MD Encounter for adjustment or management of cardiac device (Primary Dx); Complete atrioventricular block (HCC); Presence of cardiac pacemaker from Last 3 Months Allergies Active Allergy Reactions Criticality Noted Date Comments Fluticasone Low 01/28/2021 Other reaction(s): DIZZY LIGHT HEADED Hydromorphone 10/10/2022 [place] Medium 01/28/2021 Other reaction(s): MAKES CRAZY Medications [...] 22 Overview (07/18/2022): Mechanical aortic valve replacement 2003 Complete atrioventricular block 07/01/2021 Presence of cardiac pacemaker 07/01/2021 Overview (07/18/2022): Dual-chamber 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 Hyperlipidemia 04/13/2021 Hypertension 04/13/2021 Resolved Problems Problem Noted Date Diagnosed Date Resolved Date Palpitations 07/01/2021 01/06/2024 Shortness of breath 04/13/2021 01/06/20 24 Encounter for general adult medical examination without abnormal findings 08/13/2020 Insomnia 10/23/2019 01/06/2024 Social History Tobacco Use Types Packs/Day Years [...] Date Ruddy rded Speak language other than Maldivian at home Not on file 09/14/2023 Want [...] Description 03/13/2025 1:45 PM EDT Office Visit [facility] Electrophysiology [address] [place] [phone] [place] [address] [place] [address] [address] [place] [address] Medical Devices Implanted Type Area Landfill Grader Device Identifier Shelf Expiration Date Model / Serial / Lot Pacemakers-07/29 Implanted:08/20 by Troy Alcantara MD (Quantity not on file) Pacemakers [employer] MARJAN / [id number] / Insurance MEDICARE PART A B [email or web address] [facility] SUPP Care Teams Dye Expert Relationship Specialty Start Date End Date Brian Flores MD [address] [place] [address] PCP - General Adolescent Medicine 07/19/22
== END 2025-02-14 15:27 ==
LOC: ACC 14:55
PROVIDERS: PCP Nurse Practitioner Family; Visit Provider Internal Medicine Adolescent Medicine
DX: Z79.01 Long term (current) use of anticoagulants (principal); Z95.2 Presence of prosthetic heart valve
CPT/HCPCS: 85610; 99211; G0463

== ENCOUNTER 2025-02-26 15:01 | Outpatient (CLI) | payer MEDICARE, OTHER, SELFPAY ==
--- OUTSIDE RECORDS SUMMARY | 2025-01-30 14:00 | XMS_ITS | Encounter Summary ---
Author Organization [facility] ([place], [place], [place], [place]) Address [address] [place] [address] Care Team Providers Care Abap Developer Name Role Phone Brian Flores MD Primary Care Provider [phone] Reason for Visit * Reason Comments Follow-up Encounter Details Date Type Department Care Team (Late st Contact Info) Description 01/30/2025 2:00 PM EDT Office Visit [facility] Cardiology [address] [phone] Rae Castro, CAROL [address] [facility] [address] [place] [address] H/O mechanical aortic valve replacement (Primary Dx); Complete atrioventricular block (HCC); Paroxysmal atrial fibrillation (HCC) Social History Tobacco Use Types Packs/Day Years Used Date Smoking Tobacco: Never Smokeless Tobacco: Never Family and Community Support Answer Thong e Recorded Help with Day to Day Activities Not on file 09/14/2023 Feeling Lonely or Isolated Not on file 09/14 Educational Attainment Answer Date Ruddy rded Speak language other than Singaporean at home Not on file 09/14/2023 Want help with school or training Not on file 09/14/2023 Substance Use Answer Date Recorded Used prescription meds for non-medical reasons N ot on file 09/14/2023 Used illegal drugs past 12 months Not on file 09/14/2023 Comments Unknown Sex and Gender Information Value Date Recorded Sex Assigned at Not on file Legal Sex Female 3:20 PM CDT Gender Identity Not on file Sexual Orientation Not on file documented as of this encounter Last Filed Vital Signs Vital Sign Reading Time Taken Comments Blood Pressure 130/82 01/30/2025 2:29 PM EDT Pulse 78 01/30/2025 2:29 PM EDT Temperature - - Respiratory Rate - - Oxygen Saturation - - Inhaled Oxygen Concentration - - Weight 86.6 kg (191 lb) 01/30/2025 2:29 PM EDT Height 165.1 cm (5' 5 ) 01/30/2025 2:29 PM EDT Body Mass Index 31.78 01/30/2025 2:29 PM EDT documented in this encounter Progress Notes * Rea Castro PA-C - 01/30/2025 2:00 PM EDT History Of Present Illness Annie Mejia is a 84 y.o. female with history of CHB (Medtronic) and mechanical AVR is here for 6 month followup. Has INR checked at [facility]. Pt complains of chest pain at last OV. Lexiscan was ordered and reportedly normal. Patient continues to have some chest discomfort. Patient states that she can be sitting perfectly still and feels some discomfort in her chest. Patient had 2 episodes last week that she had to take nitroglycerin 1 ofwhich was on . Patient's daughter states that she had texted her that she was feeling dizzynot feeling well and would just cannot stay in her chair most of the day. With review of device printout patient did have some A-fib requiring treatment on . This is a new diagnosis for her. She is on warfarin for history of mechanical AVR. Patient denies any syncope. Last echocardiogram was in April 2024 which showed normal aortic gradients and a trace of the paravalvular leak. Lexiscan in May 21 also showed a normal ejection fraction with no evidence of reversible ischemia.Patient has a Medtronic pacemaker for history of complete third-degree heart block. CARDIAC HISTORY S/p Mechanical AVR ECHO 05-21 Normal EF with normal aortic gradients, trace paravalvular leak Stress test 05-21 Normal Pacemaker / Medtronic Complete Heart Block Past Medical History She has a past medical history of Encounter for adjustment or management of cardiac device (09/30/2024). Surgical History She has no past surgical history on file. Social History She reports that she has never smoked. She has never used smokeless tobacco. No history on file foralcohol use and drug use. Family History Noncontributory ROS Review of Systems Reason unable to perform ROS: 10 point ROS neg with exception to HPI. Constitutional: Negative. HENT: Negative. Respiratory: Negative. Cardiovascular: Negative. Gastrointestinal: Negative. Genitourinary: Negative. Musculoskeletal: Negative. Skin: Negative. Neurological: Negative. Endo/Heme/Allergies: Negative. Allergies [place], Hydromorphone, and Fluticasone Medications Outpatient Medications Marked as Taking for the 01/30/25 encounter (Office Visit) with Rae Castro PA-C Medication Sig Dispense Refill ALPRAZolam (XANAX) 0.25 MG tablet Take 1 tablet (0.25 mg total) by mouth every night as needed. escitalopram oxalate (LEXAPRO) 20 MG tablet Take 1 tablet (20 mg total) by mouth daily. fexofenadine-pseudoephedrine (LAURA-D 24) 180-240 mg per 24 hr tablet Take 1 tablet by mouth daily. furosemide (LASIX) 20 MG tablet Take 1 tablet (20 mg total) by mouth daily. 20 tablet 0 lisinopriL (PRINIVIL,ZESTRIL) 5 MG tablet Take 0.5 tablets (2.5 mg total) by mouth daily. montelukast (SINGULAIR) 10 mg tablet Take 1 tablet (10 mg total) by mouth nightly. nitroglycerin (NITROSTAT) 0.[address] 1 tablet (0.4 mg total) under the tongue every 5 (five) minutes as needed Put 1 pill under tongue every 5min as needed for chest pain.No more than 3 doses in 15min.Call 911 if pain unrelieved 5min after 1st dose. omeprazole (PriLOSEC) 40 MG capsule Take 1 capsule (40 mg total) by mouth daily. potassium chloride (KLOR-CON-M) 10 MEQ CR tablet Take 1 tablet (10 mEq total) by mouth daily. rosuvastatin (CRESTOR) 5 MG tablet Take 1 tablet (5 mg total) by mouth daily. traZODone (DESYREL) 50 MG tablet Take 1 tablet (50 mg total) by mouth nightly. warfarin (COUMADIN, JANTOVEN) 5 MG tablet Take 1 tablet (5 mg total) by mouth 4 (four) times a weekMonday & Monday. warfarin (COUMADIN, AUGTOVEN) 7.5 MG tablet Take 1 tablet (7.5 mg total) by mouth as directed Monday, Monday, & . Last Recorded Vitals Blood pressure 130/82, pulse 78, height 1.651 m (5' 5 ), weight 86.6 kg (191 lb). PHYSICAL EXAM General- alert and aware, no acute distress. Appears stated age. HEENT- normocephalic, sclera clear, oral membranes moist Neck- supple, no lymphadenopathy. No carotid bruits. No noted JVD Lungs- clear to auscultate throughout, no wheezes, rhonci or rales Heart- Normal S1,S2. Regular rate and rhythm without murmur, gallop or rub Abd- soft, nondistended. Pos BS Ext- palpable pulses. No noted edema. Skin- Clear, dry. Warm Neuro- demonstrates normal mental status without neurologic deficit Psych- orientated to person, place, and time. Appropriate mood. Last EKG Result Device check-the patient had 3 treated episodes of AT AF on recent check. There was 2 episodes on January 22 3 episodes on January 23 and 2 episodes on January 24. This does correlate with patient's symptoms of feeling poorly dizziness and some mild chest discomfort. Assessment & Plan ICD-10-CM ICD-9-CM 1. H/O mechanical aortic valve replacement Z95.2 V43.3 2. Complete atrioventricular block (HCC) I44.2 426.0 3. Paroxysmal atrial fibrillation (HCC) I48.0 427.31 New Prescriptions AMIODARONE (PACERONE) 200 MG TABLET Take 1 tablet (200 mg total) by mouth 2 (two) times daily. Discontinued Medications No medications on file Modified Medications No medications on file Plan The patient is on warfarin for history of mechanical AVR. Therefore she is protected somewhat from stroke risk due to A-fib. Will continue warfarin for anticoagulation. Add Amio 200 mg twice daily. Refer to electrophysiology. Patient advised to stop taking the Laura-D on her medication list. Avoid decongestants or stimulants. Go to nearest emergency room with any unrelenting chest pain. Follow-up here in 3 months earlier if needed. Electronically signed by: Rae Castro PA-C, 01/31/2025 at 1:52 PM documented in this encounter Plan of Treatment Upcoming Encounters Date Type Department Care Team (Late st Contact Info) Description 03/13/2025 1:45 PM EDT Office Visit [facility] Electrophysiology [address] [place] [phone] Troy Alcantara MD [address] [place] [address] [address] [place] [phone] documented as of this encounter Visit Diagnoses Diagnosis H/O mechanical aortic valve replacement- Primary Complete atrioventricular block (HCC) Atrioventricular block, complete Paroxysmal atrial fibrillation (HCC) Atrial fibrillation documented in this encounter Care Teams Abap Developer Relationship Specialty Start Date End Date Brian Flores MD [address] [place] [address] PCP - General Adolescent Medicine 07/19/22 documented as of this encounter
--- OUTSIDE RECORDS SUMMARY | 2025-02-26 15:04 | XMS_ITS | Encounter Summary ---
Author Organization [employer] ([place], [place], [place], [place]) Address [address] [place] [address] Care Team Providers Care Oceanography Teacher Name Role Phone Brian Flores MD Primary Care Provider [phone] Encounter Details Date Type Department Care Team [...] Date Ruddy rded Speak language other than Tanzanian at home Not on file 09/14/2023 Want [...] Description 03/13/2025 1:45 PM EDT Office Visit [facility] Electrophysiology [address] [place] [address] Troy Alcantara MD [address] [facility] [address] [place] [id number] documented as of this encounter Visit Diagnoses Not on filedocumented in this encounter Care Teams Oceanography Teacher Relationship Specialty Start Date End Date Brian Flores MD [address] [place] [address] PCP - General Adolescent Medicine 07/19/22 documented as of this encounter
--- OUTSIDE RECORDS SUMMARY | 2025-02-26 15:05 | XMS_ITS | Clinical Summary ---
Author Organization [employer] ([place], [place], [place], [place]) Address [address] [place] [address] Care Team Providers Care Glass Engraver Name Role Phone Brian Flores MD Primary Care Provider [phone] Allergies Active Allergy Reactions Criticality Noted Date Comments Fluticasone Low 01/28/2021 Other reaction(s): DIZZY LIGHT HEADED Hydromorphone 10/10/2022 [place] Medium 01/28/2021 Other reaction(s): MAKES CRAZY Medications [...] Description 01/30/2025 2:00 PM EDT Office Visit [facility] Cardiology [address] [place] [phone] Rae Castro PA-C H/O mechanical aortic valve replacement (Primary Dx); Complete atrioventricular block (HCC); Paroxysmal atrial fibrillation (HCC) 01/30/2025 Travel 12/06/2024 6:00 AM EDT Clinical Support [facility] Electrophysiology [address] [place] [phone] Troy Alcantara MD Encounter for adjustment or management of cardiac device (Primary Dx); Complete atrioventricular block (HCC); Presence of cardiac pacemaker from Last 3 Months Social History Tobacco Use Types Packs/Day Years Used Date Smoking Tobacco: Never Smokeless Tobacco: Never Tobacco Cessation:Counseling Given: Not Answered Family and Community Support Answer Thong e Recorded Help with Day to Day Activities Not on file 09/14/2023 Feeling Lonely or Isolated Not on file 09/14 Educational Attainment Answer Date Ruddy rded Speak language other than Occitan at home Not on file 09/14/2023 Want [...] Description 03/13/2025 1:45 PM EDT Office Visit [facility] Electrophysiology [address] [place] [phone] Troy Alcantara MD [address] [facility] [address] [place] [address] Health Maintenance Due Date Last Done Comments [...] 01/30/2026 01/30/2025 Medical Devices Implanted Type Area Core Filer Device Identifier Shelf Expiration Date Model / Serial / Lot Pacemakers-07/29 Implanted:08/20 by Troy Alcantara MD (Quantity not on file) Pacemakers [employer] MARJAN / [id number] / Insurance MEDICARE PART A B [facility] SUPP Care Teams Glass Engraver Relationship Specialty Start Date End Date Brian Flores MD [address] [place] [address] PCP - General Adolescent Medicine 07/19/22
[2025-02-26 16:00] LABS: PHA INR Fingerstick 4.2 (0.9-1.1)
[2025-02-26 16:22] LABS: Prothrombin Time 49.7 seconds (10.1-12.5)
[2025-02-26 16:23] LABS: INR 5.05 (0.9-1.1)
== END 2025-02-26 16:01 ==
PROVIDERS: PCP Nurse Practitioner Family; Visit Provider Internal Medicine Adolescent Medicine
DX: Z79.01 Long term (current) use of anticoagulants (principal); Z95.2 Presence of prosthetic heart valve
CPT/HCPCS: 36415; 85610; 99211; G0463

== ENCOUNTER 2025-03-04 11:25 | Outpatient (CLI) | payer MEDICARE, OTHER, SELFPAY ==
--- OUTSIDE RECORDS SUMMARY | 2025-01-30 14:00 | XMS_ITS | Encounter Summary ---
Author Organization [employer] ([place], [place], [place], [place]) Address [address] [place] [address] Care Team Providers Care Uppers Edge Burnisher Name Role Phone Brian Flores MD Primary Care Provider [phone] Reason for Visit * Reason Comments Follow-up Encounter Details Date Type Department Care Team (Late st Contact Info) Description 01/30/2025 2:00 PM EDT Office Visit [facility] Cardiology [address] [phone] Rae Castro, CAROL [address] [facility] [address] [place] [address] H/O mechanical aortic valve replacement (Primary Dx); [...] Date Ruddy rded Speak language other than [place] Timorese at home Not on file 09/14/2023 Want [...] 6 month followup. Has INR checked at [facility]. Pt complains of chest pain at last [...] Skin: Negative. Neurological: Negative. Endo/Heme/Allergies: Negative. Allergies [place], Hydromorphone, and Fluticasone Medications Outpatient Medications Marked [...] Description 03/13/2025 1:45 PM EDT Office Visit [facility] Electrophysiology [address] [place] [phone] Troy Alcantara MD [address] [place] [address] [address] [place] [phone] documented as of this encounter Visit Diagnoses Diagnosis H/O mechanical aortic valve replacement- Primary Complete atrioventricular block (HCC) Atrioventricular block, complete Paroxysmal atrial fibrillation (HCC) Atrial fibrillation documented in this encounter Care Teams Uppers Edge Burnisher Relationship Specialty Start Date End Date Brian Flores MD [address] [place] [address] PCP - General Adolescent Medicine 07/19/22 documented as of this encounter
--- OUTSIDE RECORDS SUMMARY | 2025-03-04 11:29 | XMS_ITS | Referral Summary ---
Author Organization [employer] ([place], [place], [place], [place]) Address [address] [place] [address] Care Team Providers Care Rotary Drill Operator Helper Name Role Phone Brian Flores MD Primary Care Provider [phone] Encounters Date Type Department Care Team Description 01/30/2025 Travel 01/30/2025 2:00 PM EDT Office Visit [facility] Cardiology [address] [place] [phone] Rae Castro PA-C H/O mechanical aortic valve replacement (Primary Dx); Complete atrioventricular block (HCC); Paroxysmal atrial fibrillation (HCC) 12/06/2024 6:00 AM EDT Clinical Support [facility] Electrophysiology [address] [place] [phone] Troy Alcantara MD Encounter for adjustment or management of cardiac device (Primary Dx); Complete atrioventricular block (HCC); Presence of cardiac pacemaker from Last 3 Months Allergies Active Allergy Reactions Criticality Noted Date Comments Fluticasone Low 01/28/2021 Other reaction(s): DIZZY LIGHT HEADED Hydromorphone 10/10/2022 [place] Medium 01/28/2021 Other reaction(s): MAKES CRAZY Medications [...] Date Ruddy rded Speak language other than Romanian at home Not on file 09/14/2023 Want [...] Description 03/13/2025 1:45 PM EDT Office Visit [facility] Electrophysiology [address] [place] [phone] Troy Alcantara MD [address] [facility] [address] [place] [address] Medical Devices Implanted Type Area Trolley Coach Driver Device Identifier Shelf Expiration Date Model / Serial / Lot Pacemakers-07/29 Implanted:08/20 by Troy Alcantara MD (Quantity not on file) Pacemakers [employer] MARJAN / [id number] / [place] [address] MEDICARE PART A B [employer] [facility] Care Teams Rotary Drill Operator Helper Relationship Specialty Start Date End Date Brian Flores MD [address] [place] [address] PCP - General Adolescent Medicine 07/19/22
--- OUTSIDE RECORDS SUMMARY | 2025-03-04 11:29 | XMS_ITS | Clinical Summary ---
Author Organization [employer] ([place], [place], [place], [place]) Address [address] [place] [address] Care Team Providers Care Medical Biller Name Role Phone Brian Flores MD Primary Care Provider [phone] Allergies Active Allergy Reactions Criticality Noted Date Comments Fluticasone Low 01/28/2021 Other reaction(s): DIZZY LIGHT HEADED Hydromorphone 10/10/2022 [place] Medium 01/28/2021 Other reaction(s): MAKES CRAZY Medications [...] Description 01/30/2025 2:00 PM EDT Office Visit [facility] Cardiology [address] [place] [phone] Rae Castro PA-C H/O mechanical aortic valve replacement (Primary Dx); Complete atrioventricular block (HCC); Paroxysmal atrial fibrillation (HCC) 01/30/2025 Travel 12/06/2024 6:00 AM EDT Clinical Support [facility] Electrophysiology [address] [place] [phone] Troy Alcantara MD Encounter for adjustment [...] Date Ruddy rded Speak language other than Kazakh at home Not on file 09/14/2023 Want [...] Description 03/13/2025 1:45 PM EDT Office Visit [facility] Electrophysiology [address] [place] [phone] Troy Alcantara MD [address] [facility] [address] [place] [address] Health Maintenance Due Date Last Done Comments [...] 2024 Falls Risk Screening 08/28/2024 Influenza Vaccine (#1) 2025 , 05/07/2020, 05/09/2019, Additional history exists Tobacco Cessation Counseling and Screening (12+) 01/30/2026 01/30/2025 Medical Devices Implanted Type Area Hospital Superintendent Device Identifier Shelf Expiration Date Model / Serial / Lot Pacemakers-07/29 Implanted:08/20 by Troy Alcantara MD (Quantity not on file) Pacemakers [employer] MARJAN / [id number] / Insurance MEDICARE PART A B [employer] [facility] SUPP Care Teams Medical Biller Relationship Specialty Start Date End Date Brian Flores MD [address] [place] [address] PCP - General Adolescent Medicine 07/19/22
--- OUTSIDE RECORDS SUMMARY | 2025-03-04 11:29 | XMS_ITS | Encounter Summary ---
Author Organization [employer] ([place], [place], [place], [place]) Address [address] [place] [address] Care Team Providers Care Slime Plant Operator Helper Name Role Phone Brian Flores MD Primary Care Provider [phone] Encounter Details Date Type Department Care Team [...] Date Ruddy rded Speak language other than Thai at home Not on file 09/14/2023 Want [...] Description 03/13/2025 1:45 PM EDT Office Visit [facility] Electrophysiology [address] [place] [address] Troy Alcantara MD [address] [facility] [address] [place] [phone] documented as of this encounter Visit Diagnoses Not on filedocumented in this encounter Care Teams Slime Plant Operator Helper Relationship Specialty Start Date End Date Brian Flores MD [address] [place] [address] PCP - General Adolescent Medicine 07/19/22 documented as of this encounter
[2025-03-04 14:19] LABS: PHA INR Fingerstick 1.9 (0.9-1.1)
== END 2025-03-04 14:20 ==
LOC: ACC 11:27
PROVIDERS: PCP Nurse Practitioner Family; Visit Provider Internal Medicine Adolescent Medicine
DX: Z79.01 Long term (current) use of anticoagulants (principal); Z95.2 Presence of prosthetic heart valve
CPT/HCPCS: 85610; 99211; G0463

== ENCOUNTER 2025-03-14 14:32 | Outpatient (CLI) | payer MEDICARE, OTHER, SELFPAY ==
--- OUTSIDE RECORDS SUMMARY | 2025-01-30 14:00 | XMS_ITS | Encounter Summary ---
Author Organization [employer] ([place], [place], [place], [place]) Address [address] [place] [address] Care Team Providers Care Computer Network And Systems Engineer Name Role Phone Brian Flores MD Primary Care Provider [phone] Reason for Visit * Reason Comments Follow-up Encounter Details Date Type Department Care Team (Late st Contact Info) Description 01/30/2025 2:00 PM EDT Office Visit [facility] Cardiology [address] [phone] Rae Castro, CAROL [address] [facility] [address] [place] [address] H/O mechanical aortic valve replacement (Primary Dx); [...] Date Ruddy rded Speak language other than Mauritian at home Not on file 09/14/2023 Want [...] 6 month followup. Has INR checked at [facility]. Pt complains of chest pain [...] Skin: Negative. Neurological: Negative. Endo/Heme/Allergies: Negative. Allergies [place], Hydromorphone, and Fluticasone Medications Outpatient Medications Marked [...] Description 04/17/2025 3:15 PM EDT Office Visit [facility] Electrophysiology [address] [place] [phone] Troy Alcantara MD [address] [place] [address] [address] [place] [phone] documented as of this encounter Visit Diagnoses Diagnosis H/O mechanical aortic valve replacement- Primary Complete atrioventricular block (HCC) Atrioventricular block, complete Paroxysmal atrial fibrillation (HCC) Atrial fibrillation documented in this encounter Care Teams Computer Network And Systems Engineer Relationship Specialty Start Date End Date Brian Flores MD [address] [place] [address] PCP - General Adolescent Medicine 07/19/22 documented as of this encounter
--- OUTSIDE RECORDS SUMMARY | 2025-03-14 14:35 | XMS_ITS | Encounter Summary ---
Author Organization [employer] ([place], [place], [place], [place]) Address [address] [place] [address] Care Team Providers Care Funeral Pre Arrangement Specialist Name Role Phone Brian Flores MD Primary Care Provider [phone] Encounter Details Date Type Department Care Team [...] Date Ruddy rded Speak language other than Tristanian at home Not on file 09/14/2023 Want [...] Description 04/17/2025 3:15 PM EDT Office Visit [facility] Electrophysiology [address] [place] [address] Troy Alcantara MD [address] [facility] [address] [place] [phone] documented as of this encounter Visit Diagnoses Not on filedocumented in this encounter Care Teams Funeral Pre Arrangement Specialist Relationship Specialty Start Date End Date Brian Flores MD [address] [place] [address] PCP - General Adolescent Medicine 07/19/22 documented as of this encounter
--- OUTSIDE RECORDS SUMMARY | 2025-03-14 14:35 | XMS_ITS | Clinical Summary ---
Author Organization [employer] ([place], [place], [place], [place]) Address [address] [place] [address] Care Team Providers Care Pick Up Truck Driver Name Role Phone Brian Flores MD Primary Care Provider [phone] Allergies Active Allergy Reactions Criticality Noted Date Comments Fluticasone Low 01/28/2021 Other reaction(s): DIZZY LIGHT HEADED Hydromorphone 10/10/2022 [place] Medium 01/28/2021 Other reaction(s): MAKES CRAZY Medications [...] Description 01/30/2025 2:00 PM EDT Office Visit [facility] Cardiology [address] [place] [address] Rae Castro PA-C H/O mechanical aortic valve replacement (Primary Dx); Complete atrioventricular block (HCC); Paroxysmal atrial fibrillation (HCC) 01/30/2025 Travel from Last 3 Months Social History Tobacco Use Types Packs/Day Years Used Date Smoking Tobacco: Never Smokeless Tobacco: Never Tobacco Cessation:Counseling Given: Not Answered Family and Community Support Answer Thong e Recorded Help with Day to Day Activities Not on file 09/14/2023 Feeling Lonely or Isolated Not on file 09/14 Educational Attainment Answer Date Ruddy rded Speak language other than Macanese at home Not on file 09/14/2023 Want [...] Description 04/17/2025 3:15 PM EDT Office Visit [facility] Electrophysiology [address] [place] [address] [place] [address] [place] [address] [address] [place] [address] Health Maintenance Due Date Last Done Comments DXA SCAN 1939 Depression Screening (12+) 1951 DTAP/TDAP/TD VACCINES (1 - Tdap) 12/13/1958 Pneumococcal 50+ years (1 of 2 - PCV) 12/13/1958 Shingles Vaccine (Zoster) (1 of 2) 12/13/1989 Medicare Initial AWV G0438 11/27/2005 Respiratory Syncytial Virus (RSV) Adult or (1 - 1-dose 75+ series) 12/13/2014 COVID-19 VACCINE (1 - 2023-2 5 season) 2024 Falls Risk Screening 08/28/2024 Influenza Vaccine (#1) 2025 , 05/07/2020, 05/09/2019, Additional history exists Tobacco Cessation Counseling and Screening (12+) 01/30/2026 01/30/2025 Medical Devices Implanted Type Area In Flight Crew Member Device Identifier Shelf Expiration Date Model / Serial / Lot Pacemakers-07/29 Implanted:08/20 by Troy Alcantara MD (Quantity not on file) Pacemakers [employer] MARJAN / [id number] / [place] [id number] MEDICARE PART A B [employer] [facility] SUPP Care Teams Pick Up Truck Driver Relationship Specialty Start Date End Date Brian Flores MD [address] [place] [address] PCP - General Adolescent Medicine 07/19/22
--- OUTSIDE RECORDS SUMMARY | 2025-03-14 14:35 | XMS_ITS | Referral Summary ---
Author Organization [employer] ([place], [place], [place], [place]) Address [address] [place] [address] Care Team Providers Care Agricultural Extension Specialist Name Role Phone Brian Flores MD Primary Care Provider [phone] Encounters Date Type Department Care Team Description 01/30/2025 Travel 01/30/2025 2:00 PM EDT Office Visit [facility] Cardiology [address] [place] [address] Rae Castro PA-C H/O mechanical aortic valve replacement (Primary Dx); Complete atrioventricular block (HCC); Paroxysmal atrial fibrillation (HCC) from Last 3 Months Allergies Active Allergy Reactions Criticality Noted Date Comments Fluticasone Low 01/28/2021 Other reaction(s): DIZZY LIGHT HEADED Hydromorphone 10/10/2022 [place] Medium 01/28/2021 Other reaction(s): MAKES CRAZY Medications [...] 07/01/2021 01/06/2024 Shortness of breath 04/13/2021 01/06/20 Encounter for general adult medical examination without [...] Date Ruddy rded Speak language other than Kosovan at home Not on file 09/14/2023 Want [...] Description 04/17/2025 3:15 PM EDT Office Visit [facility] Electrophysiology [address] [phone] [place] [address] [place] [address] [address] [place] [address] Medical Devices Implanted Type Area Woodworking Machine Feeder Device Identifier Shelf Expiration Date Model / Serial / Lot Pacemakers-07/29 Implanted:08/20 by Troy Alcantara MD (Quantity not on file) Pacemakers [employer] MARJAN / [id number] / Insurance [place] [id number] [address] [place] [address] [employer] [facility] Care Teams Agricultural Extension Specialist Relationship Specialty Start Date End Date Brian Flores MD [address] [place] [address] PCP - General Adolescent Medicine 07/19/22
[2025-03-14 15:17] LABS: PHA INR Fingerstick 4.2 (0.9-1.1)
== END 2025-03-14 15:18 ==
LOC: ACC 14:33
PROVIDERS: PCP Internal Medicine Adolescent Medicine; Visit Provider Internal Medicine Adolescent Medicine
DX: Z79.01 Long term (current) use of anticoagulants (principal); Z95.2 Presence of prosthetic heart valve
CPT/HCPCS: 85610; 99211; G0463

== ENCOUNTER 2025-03-17 17:32 | Outpatient (CLI) | payer MEDICARE, OTHER, SELFPAY ==
--- OUTSIDE RECORDS SUMMARY | 2025-01-30 14:00 | XMS_ITS | Encounter Summary ---
Author Organization [employer] ([place], [place], [place], [place]) Address [address] [place] [address] Care Team Providers Care Seam Steamer Name Role Phone Brian Flores MD Primary Care Provider [phone] Reason for Visit * Reason Comments Follow-up Encounter Details Date Type Department Care Team (Late st Contact Info) Description 01/30/2025 2:00 PM EDT Office Visit [facility] Cardiology [address] [phone] Rae Castro, CAROL [address] [facility] [address] [place] [address] H/O mechanical aortic valve replacement (Primary Dx); [...] Date Ruddy rded Speak language other than Citizen [place] at home Not on file 09/14/2023 Want [...] 6 month followup. Has INR checked at [facility]. Pt complains of chest pain at [...] Skin: Negative. Neurological: Negative. Endo/Heme/Allergies: Negative. Allergies [employer], Hydromorphone, and Fluticasone Medications Outpatient Medications Marked [...] Description 04/17/2025 3:15 PM EDT Office Visit [facility] Electrophysiology [address] [place] [phone] Troy Alcantara MD [address] [place] [address] [address] [place] [phone] documented as of this encounter Visit Diagnoses Diagnosis H/O mechanical aortic valve replacement- Primary Complete atrioventricular block (HCC) Atrioventricular block, complete Paroxysmal atrial fibrillation (HCC) Atrial fibrillation documented in this encounter Care Teams Seam Steamer Relationship Specialty Start Date End Date Brian Flores MD [address] [place] [address] PCP - General Adolescent Medicine 07/19/22 documented as of this encounter
--- OUTSIDE RECORDS SUMMARY | 2025-03-17 17:39 | XMS_ITS | Referral Summary ---
Author Organization [employer] ([place], [place], [place], [place]) Address [address] [place] [address] Care Team Providers Care E Mail System Administrator Name Role Phone Brian Flores MD Primary Care Provider [phone] Encounters Date Type Department Care Team Description 01/30/2025 Travel 01/30/2025 2:00 PM EDT Office Visit [facility] Cardiology [address] [place] [address] Rae Castro PA-C H/O mechanical aortic valve replacement (Primary Dx); Complete atrioventricular block (HCC); Paroxysmal atrial fibrillation (HCC) from Last 3 Months Allergies Active Allergy Reactions Criticality Noted Date Comments Fluticasone Low 01/28/2021 Other reaction(s): DIZZY LIGHT HEADED Hydromorphone 10/10/2022 [place] Medium 01/28/2021 Other reaction(s): MAKES CRAZY Medications [...] Date Ruddy rded Speak language other than Guamanian at home Not on file 09/14/2023 Want [...] Description 04/17/2025 3:15 PM EDT Office Visit [facility] Electrophysiology [address] [phone] [place] [address] [place] [address] [address] [place] [address] Medical Devices Implanted Type Area Insert Molding Operator Device Identifier Shelf Expiration Date Model / Serial / Lot Pacemakers-07/29 Implanted:08/20 by Troy Alcantara MD (Quantity not on file) Pacemakers [employer] MARJAN / [id number] / Insurance [place] [id number] [address] PART A [place] [address] [employer] [facility] Care Teams E Mail System Administrator Relationship Specialty Start Date End Date Brian Flores MD [address] [place] [address] PCP - General Adolescent Medicine 07/19/22
--- OUTSIDE RECORDS SUMMARY | 2025-03-17 17:39 | XMS_ITS | Encounter Summary ---
Author Organization [employer] ([place], [place], [place], [place]) Address [address] [place] [address] Care Team Providers Care Wood Chopper Name Role Phone Brian Flores MD Primary Care Provider [phone] Encounter Details Date Type Department Care Team [...] Date Ruddy rded Speak language other than Fijian at home Not on file 09/14/2023 Want [...] Description 04/17/2025 3:15 PM EDT Office Visit [facility] Electrophysiology [address] [place] [address] Troy Alcantara MD [address] [facility] [address] [place] [phone] documented as of this encounter Visit Diagnoses Not on filedocumented in this encounter Care Teams Wood Chopper Relationship Specialty Start Date End Date Brian Flores MD [address] [place] [address] PCP - General Adolescent Medicine 07/19/22 documented as of this encounter
--- OUTSIDE RECORDS SUMMARY | 2025-03-17 17:40 | XMS_ITS | Clinical Summary ---
Author Organization [employer] ([place], [place], [place], [place]) Address [address] [place] [address] Care Team Providers Care Centrifuge Separator Operator Name Role Phone Brian Flores MD Primary Care Provider [phone] Allergies Active Allergy Reactions Criticality Noted Date Comments Fluticasone Low 01/28/2021 Other reaction(s): DIZZY LIGHT HEADED Hydromorphone 10/10/2022 [place] Medium 01/28/2021 Other reaction(s): MAKES CRAZY Medications [...] Description 01/30/2025 2:00 PM EDT Office Visit [facility] Cardiology [address] [place] [phone] Rae Castro PA-C H/O mechanical aortic [...] Date Ruddy rded Speak language other than Australian at home Not on file 09/14/2023 Want [...] Description 04/17/2025 3:15 PM EDT Office Visit [facility] Electrophysiology [address] [place] [address] [place] [address] [place] [address] [address] [place] [address] Health Maintenance Due Date Last Done Comments [...] 01/30/2026 01/30/2025 Medical Devices Implanted Type Area Athletic Team Physician Device Identifier Shelf Expiration Date Model / Serial / Lot Pacemakers-07/29 Implanted:08/20 by Troy Alcantara MD (Quantity not on file) Pacemakers [employer] MARJAN / [id number] / [place] [id number] MEDICARE PART A B [employer] [facility] SUPP Care Teams Centrifuge Separator Operator Relationship Specialty Start Date End Date Brian Flores MD [address] [place] [address] PCP - General Adolescent Medicine 07/19/22
[2025-03-17 18:15] LABS: Hematocrit 40.4 % (37.0-47.0); Hemoglobin 13.0 g/dL (12.2-16.2); Immature Granulocytes % 0.3 %; Mean Corpuscular HGB Conc 32.2 g/dL (31.8-35.4); Mean Corpuscular Hemoglobin 30.7 pg (27.0-31.2); Mean Corpuscular Volume 95.3 fl (81-99); Nucleated Red Blood Cells % 0 %; Platelet Count 206 K/mm3 (142-424); Red Blood Count 4.24 M/mm3 (4.20-5.40); Red Cell Distribution Width-SD 47.4 fL; White Blood Count 7.9 K/mm3 (4.8-10.8)
[2025-03-17 18:24] LABS: Albumin Level 4.0 g/dl (3.5-5.0); Chloride 103 mmol/L (98-107)
[2025-03-17 18:25] LABS: Potassium 3.8 mmoL/L (3.5-5.1); Sodium 137 mmol/L (136-145)
[2025-03-17 18:26] LABS: INR 3.20 (0.9-1.1); Prothrombin Time 32.6 seconds (10.1-12.5)
[2025-03-17 18:27] LABS: Anion Gap 10.8 mEq/L (5-15); Blood Urea Nitrogen 8 mg/dl (7-17); Carbon Dioxide 27 mmol/L (22.0-30.0); Creatinine,Serum 0.70 mg/dl (0.52-1.04); Estimated Glomerular Filt Rate 80 ml/min (>60); GFR (African American) 96 ML/MIN (>60)
[2025-03-17 18:28] LABS: Alanine Aminotransferase 31 U/L (12-78); Albumin/Globulin Ratio 1.3 (1.1-1.8); Alkaline Phosphatase 96 U/L (38-126); Aspartate Amino Transferase 44 U/L (14-36); Bilirubin,Total 0.5 mg/dl (0.2-1.3); Calcium 8.4 mg/dl (8.4-10.2); Globulin 3.1 g/dL (1.3-3.2); Glucose 78 mg/dl (74-100); Magnesium 2.0 mg/dl (1.6-2.3); Total Protein,Serum 7.1 g/dl (6.3-8.2)
[2025-03-17 18:59] LABS: Thyroid Stimulating Hormone 3.40 uIU/mL (0.465-4.68)
== END 2025-03-17 23:59 | disposition home or self-care (01) ==
LOC: LAB.DROPOF 17:37
PROVIDERS: PCP Nurse Practitioner Family; Visit Provider Nurse Practitioner Family
DX: I48.0 Paroxysmal atrial fibrillation (principal)
CPT/HCPCS: 36415; 80053; 83735; 84443; 85025; 85610

== ENCOUNTER 2025-03-28 14:48 | Outpatient (CLI) | payer MEDICARE, OTHER, SELFPAY ==
--- OUTSIDE RECORDS SUMMARY | 2025-01-30 14:00 | XMS_ITS | Encounter Summary ---
Author Organization [employer] ([place], [place], [place], [place]) Address [address] [place] [address] Care Team Providers Care Lymphedema Therapist Name Role Phone Brian Flores MD Primary Care Provider [phone] Reason for Visit * Reason Comments Follow-up Encounter Details Date Type Department Care Team (Late st Contact Info) Description 01/30/2025 2:00 PM EDT Office Visit [facility] Cardiology [address] [phone] Rae Castro, CAROL [address] [facility] [address] [place] [address] H/O mechanical aortic valve replacement (Primary Dx); [...] Date Ruddy rded Speak language other than Georgian at home Not on file 09/14/2023 Want [...] documented in this encounter Progress Notes * Rae Castro PA-C - 01/30/2025 2:00 PM EDT History Of Present Illness Annie Mejia is a 84 y.o. female with history of CHB (Medtronic) and mechanical AVR is here for 6 month followup. Has INR checked at [facility]. Pt complains of chest pain at last [...] ejection fraction with no evidence of reversible ischemia. Patient has a Medtronic pacemaker for history of [...] Skin: Negative. Neurological: Negative. Endo/Heme/Allergies: Negative. Allergies [place], Hydromorphone, and Fluticasone Medications Outpatient Medications Marked [...] Care Team (Late st Contact Info) Description 04/17/2025 3:15 PM EDT Office Visit [facility] Electrophysiology [address] [place] [phone] Troy Alcantara MD [address] [place] [address] [address] [place] [phone] documented as of this encounter Visit Diagnoses Diagnosis H/O mechanical aortic valve replacement- Primary Complete atrioventricular block (HCC) Atrioventricular block, complete Paroxysmal atrial fibrillation (HCC) Atrial fibrillation documented in this encounter Care Teams Lymphedema Therapist Relationship Specialty Start Date End Date Brian Flores MD [address] [place] [address] PCP - General Adolescent Medicine 07/19/22 documented as of this encounter
--- OUTSIDE RECORDS SUMMARY | 2025-03-07 05:00 | XMS_ITS | Encounter Summary ---
Author Organization [employer] ([place], [place], [place], [place]) Address [address] [place] [address] Care Team Providers Care Geoscientist Name Role Phone Brian Flores MD Primary Care Provider [phone] Reason for Visit * Reason Comments Pacemaker /ICD Home Monitoring Encounter Details Date Type Department Care Team (Late st Contact Info) Description 03/07/2025 5:00 AM EDT Clinical Support [facility] Electrophysiology [address] [place], [place] [phone] [place] [address] [place] [address] [address] [place] [address] Encounter for adjustment or management of cardiac [...] Date Ruddy rded Speak language other than Canadian at home Not on file 09/14/2023 Want [...] Description 04/17/2025 3:15 PM EDT Office Visit [facility] Electrophysiology [address] [place] [address] Troy Alcantara MD [address] [facility] [address] [place] [address] documented as of this encounter Visit Diagnoses Diagnosis Encounter for adjustment or management of cardiac device- Primary Complete atrioventricular block (HCC) Atrioventricular block, complete Presence of cardiac pacemaker Cardiac pacemaker in situ documented in this encounter Care Teams Geoscientist Relationship Specialty Start Date End Date Brian Flores MD [address] [place] [address] PCP - General Adolescent Medicine 07/19/22 documented as of this encounter
--- OUTSIDE RECORDS SUMMARY | 2025-03-28 14:50 | XMS_ITS | Referral Summary ---
Author Organization [employer] ([place], [place], [place], [place]) Address [address] [place] [address] Care Team Providers Care Tape Making Machine Operator Name Role Phone Brian Flores MD Primary Care Provider [phone] Encounters Date Type Department Care Team Description 03/26/2025 Orders Only [facility] Cardiology [address] [place] [address] Marisol [place] 03/25/2025 Telephone [facility] Cardiology [address] [place] [address] Rae Castro PA-C Medication Management 03/07/2025 5:00 AM EDT Clinical Support [facility] Electrophysiology [address] [place] [phone] Mitchell Dixon MD Encounter for adjustment or management of cardiac device (Primary Dx); Complete atrioventricular block (HCC); Presence of cardiac pacemaker 01/30/2025 Travel 01/30/2025 2:00 PM EDT Office Visit [facility] Cardiology [address] [place] [address] Rae Castro PA-C H/O mechanical aortic valve replacement (Primary Dx); Complete atrioventricular block (HCC); Paroxysmal atrial fibrillation (HCC) from Last 3 Months Allergies Active Allergy Reactions Criticality Noted Date Comments Fluticasone Low 01/28/2021 Other reaction(s): DIZZY LIGHT HEADED Hydromorphone 10/10/2022 [place] Medium 01/28/2021 Other reaction(s): MAKES CRAZY Medications ALPRAZolam (XANAX) 0.25 MG tablet Take 1 tablet (0.25 mg total) by mouth every night as needed. Active rosuvastatin (CRESTOR) 5 MG tablet Take 1 tablet (5 mg total) by mouth daily. Active escitalopram oxalate (LEXAPRO) 20 MG tablet Take 1 tablet (20 mg total) by mouth daily. Active fexofenadine-p seudoephedrine (LAURA-D 24) 180-240 mg per 24 hr tablet Take 1 tablet by mouth daily. Active lisinopriL (PRINIVIL,ZEST RIL) 5 MG tablet Take 0.5 tablets (2.5 [...] (two) times daily. 60 tablet 1 5 03/26/20 25 Discontinu ed(Side effects) Active Problems Problem Noted Date Diagnosed Date [...] Date Ruddy rded Speak language other than Ghanaian at home Not on file 09/14/2023 Want [...] Description 04/17/2025 3:15 PM EDT Office Visit [facility] Electrophysiology [address] [phone] [place] [address] [place] [address] [address] [place] [address] Medical Devices Implanted Type Area Patient Service Coordinator Device Identifier Shelf Expiration Date Model / Serial / Lot Pacemakers-07/29 Implanted:08/20 by Troy Alcantara MD (Quantity not on file) Pacemakers [employer] MARJAN / [id number] / Insurance MEDICARE PART [place] [address] [employer] [facility] SUPP Care Teams Tape Making Machine Operator Relationship Specialty Start Date End Date Brian Flores MD [address] [place] [address] PCP - General Adolescent Medicine 07/19/22
--- OUTSIDE RECORDS SUMMARY | 2025-03-28 14:50 | XMS_ITS | Clinical Summary ---
Author Organization [employer] ([place], [place], [place], [place]) Address [address] [place] [address] Care Team Providers Care Network Intelligence Analyst Name Role Phone Brian Flores MD Primary Care Provider [phone] Allergies Active Allergy Reactions Criticality Noted Date Comments Fluticasone Low 01/28/2021 Other reaction(s): DIZZY LIGHT HEADED Hydromorphone 10/10/2022 [place] Medium 01/28/2021 Other reaction(s): MAKES CRAZY Medications [...] Department Care Team Description 03/26/2025 Orders Only [facility] Cardiology [address] [place] [address] Marisol [place] 03/25/2025 Telephone [facility] Cardiology [address] [place] [phone] Rae Castro PA-C Medication Management 03/07/2025 5:00 AM EDT Clinical Support [facility] Electrophysiology [address] [place] [phone] Mitchell Dixon MD Encounter for adjustment or management of cardiac device (Primary Dx); Complete atrioventricular block (HCC); Presence of cardiac pacemaker 01/30/2025 2:00 PM EDT Office Visit [facility] Cardiology [address] [place] [phone] Rae Castro PA-C H/O mechanical aortic [...] Date Ruddy rded Speak language other than Northern Irish at home Not on file 09/14/2023 Want [...] Description 04/17/2025 3:15 PM EDT Office Visit [facility] Electrophysiology [address] [place] [address] [place] [address] [place] [address] [address] [place] [phone] Health Maintenance Due Date Last Done Comments [...] 01/30/2026 01/30/2025 Medical Devices Implanted Type Area Gyro Compass Tester Device Identifier Shelf Expiration Date Model / Serial / Lot Pacemakers-07/29 Implanted:08/20 by Troy Alcantara MD (Quantity not on file) Pacemakers [employer] MARJAN / [id number] / Insurance MEDICARE PART [place] [address] [address] [facility] SUPP Care Teams Network Intelligence Analyst Relationship Specialty Start Date End Date Brian Flores MD [address] [place] [address] PCP - General Adolescent Medicine 07/19/22
--- OUTSIDE RECORDS SUMMARY | 2025-03-28 14:50 | XMS_ITS | Encounter Summary ---
Author Organization [employer] ([place], [place], [place], [place]) Address [address] [place] [address] Care Team Providers Care Customer Care Agent Name Role Phone Brian Flores MD Primary Care Provider [phone] Encounter Details Date Type Department Care Team (Late st Contact Info) Description 03/26/2025 Orders Only [facility] Cardiology [address] [place] [address] Marisol Fairbanks Social History Tobacco Use Types Packs/Day Years Used Date Smoking Tobacco: Never Smokeless Tobacco: Never Family and Community Support Answer Thong e Recorded Help with Day to Day Activities Not on file 09/14/2023 Feeling Lonely or Isolated Not on file 09/14 Educational Attainment Answer Date Ruddy rded Speak language other than Congolese at home Not on file 09/14/2023 Want [...] Description 04/17/2025 3:15 PM EDT Office Visit [facility] Electrophysiology [address] [place] [address] Troy Alcantara MD [address] [place] [address] [address] [place] [address] documented as of this encounter Visit Diagnoses Not on filedocumented in this encounter Care Teams Customer Care Agent Relationship Specialty Start Date End Date Brian Flores MD [address] [place] [address] PCP - General Adolescent Medicine 07/19/22 documented as of this encounter
--- OUTSIDE RECORDS SUMMARY | 2025-03-28 14:50 | XMS_ITS | Encounter Summary ---
Author Organization [employer] ([place], [place], [place], [place]) Address [address] [place] [address] Care Team Providers Care Bag Bailer Name Role Phone Brian Flores MD Primary Care Provider [phone] Reason for Visit * Reason Onset Date Comments Medication Management 03/25/2025 Encounter Details Date Type Department Care Team (Late st Contact Info) Description 03/25/2025 Telephone [facility] Cardiology [address] [place] [address] Rae Castro, ESTELAC [address] [facility] [address] [place] [address] Medication Management Social History Tobacco Use Types Packs/Day Years [...] on file documented as of this encounter Miscellaneous Notes * Telephone Encounter - Marisol [place] - 03/27/2025 10:58 AM EDT Called and informed patient. * Telephone Encounter - Rae Castro PA-C - 03/27/2025 10:47 AM EDT Keep follow up with Dr Alcantara as scheduled and he will address the Amiodarone. Thanks * Telephone Encounter - Jannette Bateman - 03/26/2025 10:32 AM EDT Patient returning your call she states she was asleep and she will try to get to phone quicker nexttime * Telephone Encounter - Marisol [place] - 03/26/2025 9:06 AM EDT Left VM. * Telephone Encounter - Yaritza Alexander - 03/25/2025 11:58 AM EDT Patient calling states she saw her pcp Dr. Flores and Dr. Flores has taken the patient off of the amiodarone. Please call patient to discuss. [phone] documented in this encounter Plan of Treatment Upcoming Encounters Date Type Department Care Team (Late st Contact Info) Description 04/17/2025 3:15 PM EDT Office Visit [facility] Electrophysiology [address] [place] [address] Troy Alcantara MD [address] [facility] [address] [place] [address] documented as of this encounter Visit Diagnoses Not on filedocumented in this encounter Care Teams Bag Bailer Relationship Specialty Start Date End Date Brian Flores MD [address] [place] [address] PCP - General Adolescent Medicine 07/19/22 documented as of this encounter
--- OUTSIDE RECORDS SUMMARY | 2025-03-28 14:50 | XMS_ITS | Encounter Summary ---
Author Organization [employer] ([place], [place], [place], [place]) Address [address] [place] [address] Care Team Providers Care Cabinetmaker Maintenance Name Role Phone Brian Flores MD Primary Care Provider [phone] Encounter Details Date Type Department Care Team [...] Date Ruddy rded Speak language other than Bermudian at home Not on file 09/14/2023 Want [...] Description 04/17/2025 3:15 PM EDT Office Visit [facility] Electrophysiology [address] [place] [address] Troy Alcantara MD [address] [facility] [address] [place] [phone] documented as of this encounter Visit Diagnoses Not on filedocumented in this encounter Care Teams Cabinetmaker Maintenance Relationship Specialty Start Date End Date Brian Flores MD [address] [place] [address] PCP - General Adolescent Medicine 07/19/22 documented as of this encounter
[2025-03-28 15:11] LABS: PHA INR Fingerstick 2.1 (0.9-1.1)
== END 2025-03-28 15:13 ==
LOC: ACC 14:48
PROVIDERS: PCP Nurse Practitioner Family; Visit Provider Internal Medicine Adolescent Medicine
DX: Z79.01 Long term (current) use of anticoagulants (principal); Z95.2 Presence of prosthetic heart valve
CPT/HCPCS: 85610; 99211; G0463

== ENCOUNTER 2025-04-16 14:51 | Outpatient (CLI) | payer MEDICARE, OTHER, SELFPAY ==
--- OUTSIDE RECORDS SUMMARY | 2025-03-07 05:00 | XMS_ITS | Encounter Summary ---
Author Organization [employer] ([place], [place], [place], [place]) Address [address] [place] [address] Care Team Providers Care Flour Tester Name Role Phone Brian Flores MD Primary Care Provider [phone] Reason for Visit * Reason Comments Pacemaker /ICD Home Monitoring Encounter Details Date Type Department Care Team (Late st Contact Info) Description 03/07/2025 5:00 AM EDT Clinical Support [facility] Electrophysiology [address] [place], [place] [phone] [place] [address] [place] [address] [address] [place] [address] Encounter for adjustment or management of cardiac [...] Date Ruddy rded Speak language other than Indian at home Not on file 09/14/2023 Want [...] Description 04/17/2025 3:15 PM EDT Office Visit [facility] Electrophysiology [address] [place] [address] Troy Alcantara MD [address] [facility] [address] [place] [address] documented as of this encounter Visit Diagnoses Diagnosis Encounter for adjustment or management of cardiac device- Primary Complete atrioventricular block (HCC) Atrioventricular block, complete Presence of cardiac pacemaker Cardiac pacemaker in situ documented in this encounter Care Teams Flour Tester Relationship Specialty Start Date End Date Brian Flores MD [address] [place] [address] PCP - General Adolescent Medicine 07/19/22 documented as of this encounter
--- OUTSIDE RECORDS SUMMARY | 2025-04-16 14:54 | XMS_ITS | Referral Summary ---
Author Organization [employer] ([place], [place], [place], [place]) Address [address] [place] [address] Care Team Providers Care Pi/Senior Research Associate Name Role Phone Brian Flores MD Primary Care Provider [phone] Encounters Date Type Department Care Team Description 03/26/2025 Orders Only [facility] Cardiology [address] [place] [address] Marisol [place]banks 03/25/2025 Telephone [facility] Cardiology [address] [place] [address] Rae Castro PA-C Medication Management 03/07/2025 5:00 AM EDT Clinical Support [facility] Electrophysiology [address] [place] [phone] Mitchell Dixon MD Encounter for adjustment or management of cardiac device (Primary Dx); Complete atrioventricular block (HCC); Presence of cardiac pacemaker 01/30/2025 Travel 01/30/2025 2:00 PM EDT Office Visit [facility] Cardiology [address] [place] [address] Rae Castro PA-C H/O mechanical aortic valve replacement (Primary Dx); Complete atrioventricular block (HCC); Paroxysmal atrial fibrillation (HCC) from Last 3 Months Allergies Active Allergy Reactions Criticality Noted Date Comments Fluticasone Low 01/28/2021 Other reaction(s): DIZZY LIGHT HEADED Hydromorphone 10/10/2022 [place] Medium 01/28/2021 Other reaction(s): MAKES CRAZY Medications [...] Date Ruddy rded Speak language other than [place] Islander at home Not on file 09/14/2023 Want [...] Description 04/17/2025 3:15 PM EDT Office Visit [facility] Electrophysiology [address] [phone] [place] [address] [place] [address] [address] [place] [address] Medical Devices Implanted Type Area Digital Marketing Associate Device Identifier Shelf Expiration Date Model / Serial / Lot Pacemakers-07/29 Implanted:08/20 by Troy Alcantara MD (Quantity not on file) Pacemakers [employer] MARJAN / [id number] / Insurance MEDICARE PART A [place] [address] [employer] [facility] SUPP Care Teams Pi/Senior Research Associate Relationship Specialty Start Date End Date Brian Flores MD [address] [place] [address] PCP - General Adolescent Medicine 07/19/22
--- OUTSIDE RECORDS SUMMARY | 2025-04-16 14:54 | XMS_ITS | Encounter Summary ---
Author Organization [employer] ([place], [place], [place], [place]) Address [address] [place] [address] Care Team Providers Care 5Th Grade Teacher Name Role Phone Brian Flores MD Primary Care Provider [phone] Reason for Visit * Reason Onset Date Comments Medication Management 03/25/2025 Encounter Details Date Type Department Care Team (Late st Contact Info) Description 03/25/2025 Telephone [facility] Cardiology [address] [place] [address] Rae Castro, ESTELAC [address] [facility] [address] [place] [address] Medication Management Social History Tobacco Use Types Packs/Day Years Used Date Smoking Tobacco: Never Smokeless Tobacco: Never Family and Community Support Answer Thong e Recorded Help with Day to Day Activities Not on file 09/14/2023 Feeling Lonely or Isolated Not on file 09/14 Educational Attainment Answer Date Ruddy rded Speak language other than Japanese at home Not on file 09/14/2023 Want [...] the amiodarone. Please call patient to discuss. [phone] documented in this encounter Plan of Treatment Upcoming Encounters Date Type Department Care Team (Late st Contact Info) Description 04/17/2025 3:15 PM EDT Office Visit [facility] Electrophysiology [address] [place] [address] Troy Alcantara MD [address] [facility] [address] [place] [address] documented as of this encounter Visit Diagnoses Not on filedocumented in this encounter Care Teams 5Th Grade Teacher Relationship Specialty Start Date End Date Brian Flores MD [address] [place] [address] PCP - General Adolescent Medicine 07/19/22 documented as of this encounter
--- OUTSIDE RECORDS SUMMARY | 2025-04-16 14:54 | XMS_ITS | Encounter Summary ---
Author Organization [employer] ([place], [place], [place], [place]) Address [address] [place] [address] Care Team Providers Care Airport Traffic Controller Name Role Phone Brian Flores MD Primary Care Provider [phone] Encounter Details Date Type Department Care Team (Late st Contact Info) Description 03/26/2025 Orders Only [facility] Cardiology [address] [place] [address] Marisol [place] Social History Tobacco Use [...] EDT Office Visit [facility] Electrophysiology [address] [place] [address] Troy Alcantara MD [address] [place] [address] [address] [place] [address] documented as of this encounter Visit Diagnoses Not on filedocumented in this encounter Care Teams Airport Traffic Controller Relationship Specialty Start Date End Date Brian Flores MD [address] [place] [address] PCP - General Adolescent Medicine 07/19/22 documented as of this encounter
--- OUTSIDE RECORDS SUMMARY | 2025-04-16 14:55 | XMS_ITS | Clinical Summary ---
Author Organization [employer] ([place], [place], [place], [place]) Address [address] [place] [address] Care Team Providers Care Head Waitress Name Role Phone Brian Flores MD Primary Care Provider [phone] Allergies Active Allergy Reactions Criticality Noted Date Comments Fluticasone Low 01/28/2021 Other reaction(s): DIZZY LIGHT HEADED Hydromorphone 10/10/2022 [place] Medium 01/28/2021 Other reaction(s): MAKES CRAZY Medications [...] Department Care Team Description 03/26/2025 Orders Only [facility] Cardiology [address] [place] [phone] Marisol Fairbanks 03/25/2025 Telephone [facility] Cardiology [address] [place] [phone] Rae Castro PA-C Medication Management 03/07/2025 5:00 AM EDT Clinical Support [facility] Electrophysiology [address] [place] [phone] Mitchell Dixon MD Encounter for adjustment or management of cardiac device (Primary Dx); Complete atrioventricular block (HCC); Presence of cardiac pacemaker 01/30/2025 2:00 PM EDT Office Visit [facility] Cardiology [address] [place] [phone] Rae Castro PA-C H/O mechanical aortic [...] Date Ruddy rded Speak language other than Central African at home Not on file 09/14/2023 Want [...] Description 04/17/2025 3:15 PM EDT Office Visit [facility] Electrophysiology [address] [place] [address] [place] [address] [place] [address] [address] [place] [id number] Health Maintenance Due Date Last Done Comments [...] 01/30/2026 01/30/2025 Medical Devices Implanted Type Area Bird Cage Assembler Device Identifier Shelf Expiration Date Model / Serial / Lot Pacemakers-07/29 Implanted:08/20 by Troy Alcantara MD (Quantity not on file) Pacemakers [employer] MARJAN / [id number] / Insurance MEDICARE [place] [address] [address] [facility] SUPP Care Teams Head Waitress Relationship Specialty Start Date End Date Brian Flores MD [address] [place] [address] PCP - General Adolescent Medicine 07/19/22
[2025-04-16 15:17] LABS: PHA INR Fingerstick 3.9 (0.9-1.1)
== END 2025-04-16 15:25 ==
LOC: ACC 14:52
PROVIDERS: PCP Nurse Practitioner Family; Visit Provider Internal Medicine Adolescent Medicine
DX: Z79.01 Long term (current) use of anticoagulants (principal); Z95.2 Presence of prosthetic heart valve
CPT/HCPCS: 85610; 99211; G0463

== ENCOUNTER 2025-04-30 14:53 | Outpatient (CLI) | payer MEDICARE, OTHER, SELFPAY ==
--- OUTSIDE RECORDS SUMMARY | 2025-03-07 05:00 | XMS_ITS | Encounter Summary ---
Author Organization [employer] ([place], [place], [place], [place]) Address [address] [place] [address] Care Team Providers Care Gas Generator Operator Name Role Phone Brian Flores MD Primary Care Provider [phone] Reason for Visit * Reason Comments Pacemaker /ICD Home Monitoring Encounter Details Date Type Department Care Team (Late st Contact Info) Description 03/07/2025 5:00 AM EDT Clinical Support [facility] Electrophysiology [address] [place], [place] [phone] [place] [address] [place] [address] [address] [place] [address] Encounter for adjustment or management of cardiac [...] Date Ruddy rded Speak language other than Hungarian at home Not on file 09/14/2023 Want [...] Care Team (Late st Contact Info) Description 07/22/2025 3:15 PM EST Office Visit [facility] Electrophysiology [address] [place] [address] Troy Alcantara MD [address] [facility] [address] [place] [address] documented as of this encounter Visit Diagnoses Diagnosis Encounter for adjustment or management of cardiac device- Primary Complete atrioventricular block (HCC) Atrioventricular block, complete Presence of cardiac pacemaker Cardiac pacemaker in situ documented in this encounter Care Teams Gas Generator Operator Relationship Specialty Start Date End Date Brian Flores MD [address] [place] [address] PCP - General Adolescent Medicine 07/19/22 documented as of this encounter
--- OUTSIDE RECORDS SUMMARY | 2025-04-17 15:15 | XMS_ITS | Encounter Summary ---
Author Organization [employer] ([place], [place], [place], [place]) Address [address] [place] [address] Care Team Providers Care Blending Supervisor Name Role Phone Brian Flores MD Primary Care Provider [phone] Reason for Visit * Reason Comments Follow-up Follow up for atrial fib Encounter Details Date Type Department Care Team (Late st Contact Info) Description 04/17/2025 3:15 PM EDT Office Visit [facility] Electrophysiology [address] [place] [address] [place] [address] [place] [address] [address] [place] [address] Encounter for adjustment or management of cardiac [...] Date Ruddy rded Speak language other than [place] Islander at home Not on file 09/14/2023 [...] history on file. Allergies: Allergies Allergen Reactions Flanagan Other reaction(s): MAKES CRAZY Hydromorphone Fluticasone Other [...] Normal range of motion. Integumentary: Warm, Dry, [place]. Neurologic: No obvious focal deficit Psychiatric: Cooperative, [...] valve replacement in 2003 INR check at [facility] *Hypertension *Hyperlipidemia *Possible atrial fibrillation intermittent [...] Description 07/22/2025 3:15 PM EST Office Visit [facility] Electrophysiology [address] [place] [phone] Troy Alcantara MD [address] [place] [address] [address] [place] [address] Scheduled Orders Name Type Priority Associated Diagnoses Orde r Schedule ECG 12 lead ECG Routine Encounter for adjustment or management of cardiac device Ordered: 04/17/2025 documented as of this encounter Visit Diagnoses Diagnosis Encounter for adjustment or management of cardiac device- Primary documented in this encounter Care Teams Blending Supervisor Relationship Specialty Start Date End Date Brian Flores MD [address] [place] [address] PCP - General Adolescent Medicine 07/19/22 documented as of this encounter
--- OUTSIDE RECORDS SUMMARY | 2025-04-30 15:02 | XMS_ITS | Encounter Summary ---
Author Organization [employer] ([place], [place], [place], [place]) Address [address] [place] [address] Care Team Providers Care Table Worker Name Role Phone Brian Flores MD Primary Care Provider [phone] Encounter Details Date Type Department Care Team (Late st Contact Info) Description 03/26/2025 Orders Only [facility] Cardiology [address] [place] [phone] Marisol Fairbanks Social History Tobacco Use Types Packs/Day Years Used Date Smoking Tobacco: Never Smokeless Tobacco: Never Family and Community Support Answer Thong e Recorded Help with Day to Day Activities Not on file 09/14/2023 Feeling Lonely or Isolated Not on file 09/14 Educational Attainment Answer Date Ruddy rded Speak language other than Macedonian at home Not on file 09/14/2023 Want [...] Description 07/22/2025 3:15 PM EST Office Visit [facility] Electrophysiology [address] [place] [phone] Troy Alcantara MD [address] [place] [address] [address] [place] [address] documented as of this encounter Visit Diagnoses Not on filedocumented in this encounter Care Teams Table Worker Relationship Specialty Start Date End Date Brian Flores MD [address] [place] [address] PCP - General Adolescent Medicine 07/19/22 documented as of this encounter
--- OUTSIDE RECORDS SUMMARY | 2025-04-30 15:02 | XMS_ITS | Encounter Summary ---
Author Organization [employer] ([place], [place], [place], [place]) Address [address] [place] [address] Care Team Providers Care Piano Teacher Name Role Phone Brian Florse MD Primary Care Provider [phone] Encounter Details Date Type Department Care Team (Latest Contact Info) Description 04/17/2025 Travel Social History Tobacco Use Types Packs/Day Years Used Date Smoking Tobacco: Never Smokeless Tobacco: Never Family and Community Support Answer Thong e Recorded Help with Day to Day Activities Not on file 09/14/2023 Feeling Lonely or Isolated Not on file 09/14 Educational Attainment Answer Date Ruddy rded Speak language other than Iranian at home Not on file 09/14/2023 Want [...] Description 07/22/2025 3:15 PM EST Office Visit [facility] Electrophysiology [address] [place] [address] Troy Alcantara MD [address] [facility] [address] [place] [id number] documented as of this encounter Visit Diagnoses Not on filedocumented in this encounter Care Teams Piano Teacher Relationship Specialty Start Date End Date Brian Flores MD [address] [place] [address] PCP - General Adolescent Medicine 07/19/22 documented as of this encounter
--- OUTSIDE RECORDS SUMMARY | 2025-04-30 15:02 | XMS_ITS | Encounter Summary ---
Author Organization [employer] ([place], [place], [place], [place]) Address [address] [place] [address] Care Team Providers Care Distributor Advertising Material Name Role Phone Brian Flores MD Primary Care Provider [phone] Reason for Visit * Reason Onset Date Comments Medication Management 03/25/2025 Encounter Details Date Type Department Care Team (Late st Contact Info) Description 03/25/2025 Telephone [facility] Cardiology [address] [place] [address] Rae Castro, ESTELAC [address] [facility] [address] [place] [address] Medication Management Social History Tobacco Use Types Packs/Day Years Used Date Smoking Tobacco: Never Smokeless Tobacco: Never Family and Community Support Answer Thong e Recorded Help with Day to Day Activities Not on file 09/14/2023 Feeling Lonely or Isolated Not on file 09/14 Educational Attainment Answer Date Ruddy rded Speak language other than [place]inean at home Not on file 09/14/2023 Want [...] the amiodarone. Please call patient to discuss. [phone] documented in this encounter Plan of Treatment Upcoming Encounters Date Type Department Care Team (Late st Contact Info) Description 07/22/2025 3:15 PM EST Office Visit [facility] Electrophysiology [address] [place] [address] Troy Alcantara MD [address] [place] [address] [address] [place] [address] documented as of this encounter Visit Diagnoses Not on filedocumented in this encounter Care Teams Distributor Advertising Material Relationship Specialty Start Date End Date Brian Flores MD [address] [place] [address] PCP - General Adolescent Medicine 07/19/22 documented as of this encounter
--- OUTSIDE RECORDS SUMMARY | 2025-04-30 15:02 | XMS_ITS | Clinical Summary ---
Author Organization [employer] ([place], [place], [place], [place]) Address [address] [place] [address] Care Team Providers Care Engineer Specialist Name Role Phone Brian Flores MD Primary Care Provider [phone] Allergies Active Allergy Reactions Criticality Noted Date Comments Fluticasone Low 01/28/2021 Other reaction(s): DIZZY LIGHT HEADED Hydromorphone 10/10/2022 [place] Medium 01/28/2021 Other reaction(s): MAKES CRAZY Medications [...] Active traZODone (DESYREL) 50 MG tablet Take 1.5 tablets (75 mg total) by mouth nightly. Active warfarin [...] by mouth daily. 20 tablet 4 Active Active Problems Problem Noted Date Diagnosed [...] Encounters Date Type Department Care Team Description 04/17/2025 3:15 PM EDT Office Visit [facility] Electrophysiology [address] [place] [phone] Troy Alcantara MD Encounter for adjustment or management of cardiac device (Primary Dx) 04/17/2025 Travel 03/26/2025 Orders Only [facility] Cardiology [address] [place] [phone] Marisol Fairbanks 03/25/2025 Telephone [facility] Cardiology [address] [place] [phone] Rae Castro PA-C Medication Management 03/07/2025 5:00 AM EDT Clinical Support [facility] Electrophysiology [address] [place] [phone] Mitchell Dixon MD Encounter for adjustment or management of cardiac device (Primary Dx); Complete atrioventricular block (HCC); Presence of cardiac pacemaker 01/30/2025 2:00 PM EDT Office Visit [facility] Cardiology [address] [place] [phone] Rae Castro PA-C H/O mechanical aortic [...] Date Ruddy rded Speak language other than Monegasque at home Not on file 09/14/2023 Want [...] Mass Index 30.73 04/17/2025 5:22 PM EDT Plan of Treatment Upcoming Encounters Date Type Department Care Team (Late st Contact Info) Description 07/22/2025 3:15 PM EST Office Visit [facility] Electrophysiology [address] [place] [address] Troy Alcantara MD [address] [facility] [address] [place] [address] Health Maintenance Due Date Last Done Comments [...] exists Tobacco Cessation Counseling and Screening (12+) 04/17/2026 04/17/2025 Medical Devices Implanted Type Area Transport Rn Device Identifier Shelf Expiration Date Model / Serial / Lot Pacemakers-07/29 Implanted:08/20 by Troy Alcantara MD (Quantity not on file) Pacemakers [employer] MARJAN / [id number] / Insurance MEDICARE PART A B FOR [facility] Care Teams Engineer Specialist Relationship Specialty Start Date End Date Brian Flores MD [address] [place] [address] PCP - General Adolescent Medicine 07/19/22
--- OUTSIDE RECORDS SUMMARY | 2025-04-30 15:02 | XMS_ITS | Referral Summary ---
Author Organization [employer] ([place], [place], [place], [place]) Address [address] [place] [address] Care Team Providers Care Direct Care Staffer Name Role Phone Brian Flores MD Primary Care Provider [phone] Encounters Date Type Department Care Team Description 04/17/2025 Travel 04/17/2025 3:15 PM EDT Office Visit [facility] Electrophysiology [address] [place] [phone] Troy Alcantara MD Encounter for adjustment or management of cardiac device (Primary Dx) 03/26/2025 Orders Only [facility] Cardiology [address] [place] [phone] Marisol Fairbanks 03/25/2025 Telephone [facility] Cardiology [address] [place] [phone] Rae Castro PA-C Medication Management 03/07/2025 5:00 AM EDT Clinical Support [facility] Electrophysiology [address] [place] [phone] Mitchell Dixon MD Encounter for adjustment or management of cardiac device (Primary Dx); Complete atrioventricular block (HCC); Presence of cardiac pacemaker 01/30/2025 Travel 01/30/2025 2:00 PM EDT Office Visit [facility] Cardiology [address] [place] [phone] Rae Castro PA-C H/O mechanical aortic valve replacement (Primary Dx); Complete atrioventricular block (HCC); Paroxysmal atrial fibrillation (HCC) from Last 3 Months Allergies Active Allergy Reactions Criticality Noted Date Comments Fluticasone Low 01/28/2021 Other reaction(s): DIZZY LIGHT HEADED Hydromorphone 10/10/2022 [place] Medium 01/28/2021 Other reaction(s): MAKES CRAZY Medications [...] mg total) by mouth daily. 20 tablet Active Active Problems Problem Noted Date Diagnosed Date Paroxysmal atrial fibrillation 01/31/2025 Encounter for adjustment or management of cardia c device 09/30/2024 H/O mechanical aortic valve replacement 07/18/20 Overview (07/18/2022): Mechanical aortic valve replacement 2004 [...] Date Ruddy rded Speak language other than Finnish at home Not on file 09/14/2023 Want [...] Description 07/22/2025 3:15 PM EST Office Visit [facility] Electrophysiology [address] [place] [address] Troy Alcantara MD [address] [facility] [address] [place] [address] Medical Devices Implanted Type Area Automobile Spring Repairer Device Identifier Shelf Expiration Date Model / Serial / Lot Pacemakers-07/29 Implanted:08/20 by Troy Alcantara MD (Quantity not on file) Pacemakers [employer] MARJAN / [id number] [place] [address] [address] [address] [address] [address] [employer] [facility] SUPP Care Teams Direct Care Staffer Relationship Specialty Start Date End Date Brian Flores MD [address] [place] [address] PCP - General Adolescent Medicine 07/19/22
[2025-04-30 15:41] LABS: PHA INR Fingerstick 1.9 (0.9-1.1)
== END 2025-04-30 16:01 ==
LOC: ACC 14:54
PROVIDERS: PCP Nurse Practitioner Family; Visit Provider Internal Medicine Adolescent Medicine
DX: Z79.01 Long term (current) use of anticoagulants (principal); Z95.2 Presence of prosthetic heart valve
CPT/HCPCS: 85610; 99211; G0463

== ENCOUNTER 2025-05-14 15:26 | Outpatient (CLI) | payer MEDICARE, OTHER, SELFPAY ==
[2025-05-14 16:02] LABS: PHA INR Fingerstick 2.9 (0.9-1.1)
== END 2025-05-14 16:07 ==
LOC: ACC 15:27
PROVIDERS: PCP Nurse Practitioner Family; Visit Provider Internal Medicine Adolescent Medicine
DX: Z79.01 Long term (current) use of anticoagulants (principal); Z95.2 Presence of prosthetic heart valve
CPT/HCPCS: 85610; 99211; G0463

== ENCOUNTER 2025-06-13 14:33 | Outpatient (CLI) | payer MEDICARE, OTHER, SELFPAY ==
--- OUTSIDE RECORDS SUMMARY | 2025-04-17 15:15 | XMS_ITS | Encounter Summary ---
Author Organization [employer] ([place], [place], [place], [place]) Address [address] [place] [address] Care Team Providers Care Business Services Tech Name Role Phone Brian Flores MD Primary Care Provider [phone] Reason for Visit * Reason Comments Follow-up Follow up for atrial fib Encounter Details Date Type Department Care Team (Late st Contact Info) Description 04/17/2025 3:15 PM EDT Office Visit [facility] Electrophysiology [address] [place] [address] [place] [address] [place] [address] [address] [place] [address] Encounter for adjustment or management of cardiac device (Primary Dx) Social History Tobacco Use Types Packs/Day Years Used Date Smoking Tobacco: Never Smokeless Tobacco: Never Tobacco Cessation:Counseling Given: Not Answered Family and Community Support Answer Thong e Recorded Help with Day to Day Activities Not on file 09/14/2023 Feeling Lonely or Isolated Not on file 09/14 Educational Attainment Answer Date Ruddy rded Speak language other than Citizen [place] at home Not on file 09/14/2023 Want help with school or training Not on file 09/14/2023 Substance Use Answer Date Recorded Used prescription meds for non-medical reasons N ot on file 09/14/2023 Used illegal drugs past 12 months Not on file 09/14/2023 Comments No Sex and Gender Information Value Date Recorded Sex Assigned at Not on file Legal Sex Female 3:20 PM CDT Gender Identity Not on file Sexual Orientation Not on file documented as of this encounter Last Filed Vital Signs Vital Sign Reading Time Taken Comments Blood Pressure 150/80 04/17/2025 5:22 PM EDT Pulse 70 04/17/2025 5:22 PM EDT Temperature - - Respiratory Rate - - Oxygen Saturation 92% 04/17/2025 5:22 PM EDT Inhaled Oxygen Concentration - - Weight 86.4 kg (190 lb 6.4 oz) 04/17/2025 5:22 P M EDT Height 167.6 cm (5' 6 ) 04/17/2025 5:22 PM EDT Body Mass Index 30.73 04/17/2025 5:22 PM EDT documented in this encounter Progress Notes * Troy Alcantara MD - 04/17/2025 3:15 PM EDT Chief Complaint/Reason for Consult: Chief Complaint Patient presents with Follow-up Follow up for atrial fib Medications: Scheduled Medications: More meds Current Outpatient Medications on File Prior to Visit Medication Sig Dispense Refill ALPRAZolam (XANAX) 0.25 [...] daily. traZODone (DESYREL) 50 MG tablet Take 1.5 tablets (75 mg total) by mouth nightly. warfarin (COUMADIN, JANTOVEN) 5 MG tablet Take 1 tablet (5 mg total) by mouth 4 (four) times a weekMonday & Monday. warfarin (COUMADIN, JANTOVEN) 7.5 MG tablet Take 1 tablet (7.5 mg total) by mouth as directed Monday, Monday, & . No current facility-administered medications on file prior to visit. Problem list and diagnosis Patient Active Problem List Diagnosis Complete atrioventricular block (HCC) Hyperlipidemia Hypertension Presence of cardiac pacemaker H/O mechanical aortic valve replacement Encounter for adjustment or management of cardiac device Paroxysmal atrial fibrillation (HCC) 1. Encounter for adjustment or management of cardiac device ECG 12 lead Past Medical History: Past Medical History: Diagnosis Date Encounter for adjustment or management of cardiac device 09/30/2024 Past Surgical History: No past surgical history on file. Allergies: Allergies Allergen Reactions [place] Other reaction(s): MAKES CRAZY Hydromorphone Fluticasone Other reaction(s): DIZZY LIGHT HEADED Social History: Tobacco Use Smoking status: Never Smokeless tobacco: Never Substance Use Topics Alcohol use: Not on file Drug use: Not on file Marital Status: / Family History: No family history on file. Review of Systems: Constitutional: Negative except as documented in history of present illness. Eye: Negative except as documented in history of present illness. Ear/Nose/Mouth/Throat: Negative except as documented in history of present illness. Respiratory: Negative except as documented in history of present illness. Cardiovascular: Negative except as documented in history of present illness. Gastrointestinal: Negative except as documented in history of present illness. Genitourinary: Negative except as documented in history of present illness. Hematology/Lymphatics: Negative except as documented in history of present illness. Endocrine: Negative except as documented in history of present illness. Immunologic: Negative except as documented in history of present illness. Musculoskeletal: Negative except as documented in history of present illness. Integumentary: Negative except as documented in history of present illness. Neurologic: Negative except as documented in history of present illness. Psychiatric: Negative except as documented in history of present illness. Physical Exam: Blood pressure (!) 150/80, pulse 70, height 1.676 m (5' 6 ), weight 86.4 kg (190 lb 6.4 oz), SpO2 92%. General: Alert and oriented. Eye: Pupils are equal, round and reactive to light. HENT: Normocephalic. Neck: Supple, Non-tender, No carotid bruit, No jugular venous distention. Respiratory: Lungs are clear to auscultation, Respirations are non-labored. Cardiovascular: regular rhythm, normal mechanical valve sound Gastrointestinal: Soft, Non-tender, Non-distended, Normal bowel sounds. Musculoskeletal: Normal range of motion. Integumentary: Warm, Dry, [place]. Neurologic: No obvious focal deficit Psychiatric: Cooperative, Appropriate mood & affect. Labs, Imaging, and Other Studies: Echo Results (last 7 days) No results found for the last 168 hours. No results found for: K Lab Results Component Value Date CREATININE 0.90 08/20/2020 No results found for: EGFR , GFR Lab Results Component Value Date HGB 14.1 08/20/2020 No results found for: PLT No results found for: TSH Magnesium Level Date Value Ref Range Status 08/20/2020 2.2 1.5 - 2.4 mg/dL Final No results found for: AST , ALT HPI Medtronic DC PPM 08/20/20 on misa jarret by Elayi pacemaker dependent implanted for high degree AV block Assessment and Plan: Annie Mejia is a 84 y.o. female, seen by me before in 2020. The patient has a PMH of: *Medtronic DC PPM 08/20/20 on misa jarret by Elayi pacemaker dependent implanted for high degree AV block *Mechanical aortic valve replacement in 2003 INR check at [facility] *Hypertension *Hyperlipidemia *Possible atrial fibrillation intermittent on remote monitor was started amiodarone by Rae Castro in 2024 messed up her INR so discontinued possibly had some PMT Patient presents as new patient today on 04/17/2025. Keep the amiodarone discontinued. Device interrogation shows that she still have more than 8 years of battery left. Patient did feel bad not sure why was treated for A-fib but seems minimal PMT not excluded. Device reprogrammed to prevent PMT. Will see him back in 3 months from the A-fib perspective. Signed Troy Alcantara MD documented in this encounter Plan of Treatment Upcoming Encounters Date Type Department Care Team (Late st Contact Info) Description 07/22/2025 3:15 PM EST Office Visit [facility] Electrophysiology [address] [place] [phone] Troy Alcantara MD [address] [place] [address] [address] [place] [address] Scheduled Orders Name Type Priority Associated Diagnoses Orde r Schedule ECG 12 lead ECG Routine Encounter for adjustment or management of cardiac device Ordered: 04/17/2025 documented as of this encounter Visit Diagnoses Diagnosis Encounter for adjustment or management of cardiac device- Primary documented in this encounter Care Teams Business Services Tech Relationship Specialty Start Date End Date Brian Flores MD [address] [place] [address] PCP - General Adolescent Medicine 07/19/22 documented as of this encounter
--- OUTSIDE RECORDS SUMMARY | 2025-06-06 03:00 | XMS_ITS | Encounter Summary ---
Author Organization [employer] ([place], [place], [place], [place]) Address [address] [place] [address] Care Team Providers Care Staffing Specialist Name Role Phone Brian Flores MD Primary Care Provider [phone] Reason for Visit * Reason Comments Pacemaker /ICD Home Monitoring Encounter Details Date Type Department Care Team (Late st Contact Info) Description 06/06/2025 3:00 AM EDT Clinical Support [facility] Electrophysiology [address] [place], [place] [phone] [place] [address] [place] [address] [address] [place] [address] Encounter for adjustment or management of cardiac [...] Date Ruddy rded Speak language other than Portuguese at home Not on file 09/14/2023 Want [...] Description 07/22/2025 3:15 PM EST Office Visit [facility] Electrophysiology [address] [place] [address] Troy Alcantara MD [address] [facility] [address] [place] [address] documented as of this encounter Visit Diagnoses Diagnosis Encounter for adjustment or management of cardiac device- Primary Complete atrioventricular block (HCC) Atrioventricular block, complete Presence of cardiac pacemaker Cardiac pacemaker in situ documented in this encounter Care Teams Staffing Specialist Relationship Specialty Start Date End Date Brian Flores MD [address] [place] [address] PCP - General Adolescent Medicine 07/19/22 documented as of this encounter
--- OUTSIDE RECORDS SUMMARY | 2025-06-13 14:35 | XMS_ITS | Referral Summary ---
Author Organization [employer] ([place], [place], [place], [place]) Address [address] [place] [address] Care Team Providers Care Prevention Specialist Name Role Phone Brian Flores MD Primary Care Provider [phone] Encounters Date Type Department Care Team Description 06/06/2025 3:00 AM EDT Clinical Support [facility] Electrophysiology [address] [place] [phone] Troy Alcantara MD Encounter for adjustment or management of cardiac device (Primary Dx); Complete atrioventricular block (HCC); Presence of cardiac pacemaker 04/17/2025 Travel 04/17/2025 3:15 PM EDT Office Visit [facility] Electrophysiology [address] [place] [phone] Troy Alcantara MD Encounter for adjustment or management of cardiac device (Primary Dx) 03/26/2025 Orders Only [facility] Cardiology [address] [place] [phone] Marisol Fairbanks 03/25/2025 Telephone [facility] Cardiology [address] [place] [phone] Rae Castro PA-C Medication Management from Last 3 Months Allergies Active Allergy Reactions Criticality Noted Date Comments Fluticasone Low 01/28/2021 Other reaction(s): DIZZY LIGHT HEADED Hydromorphone 10/10/2022 [place] Medium 01/28/2021 Other reaction(s): MAKES CRAZY Medications [...] rded Speak language other than Citizen Of [place] at home Not on file 09/14/2023 Want [...] Description 07/22/2025 3:15 PM EST Office Visit [facility] Electrophysiology [address] [place] [address] Troy Alcantara MD [address] [facility] [address] [place] [address] Medical Devices Implanted Type Area Senior Network Systems Engineer Device Identifier Shelf Expiration Date Model / Serial / Lot Pacemakers-07/29 Implanted:08/20 by Troy Alcantara MD (Quantity not on file) Pacemakers [employer] MARJAN / [id number] / [place] [address] MEDICARE PART A B [facility] Care Teams Prevention Specialist Relationship Specialty Start Date End Date Brian Flores MD [address] [place] [address] PCP - General Adolescent Medicine 07/19/22
--- OUTSIDE RECORDS SUMMARY | 2025-06-13 14:35 | XMS_ITS | Encounter Summary ---
Author Organization [employer] ([place], [place], [place], [place]) Address [address] [place] [address] Care Team Providers Care Sorter Pricer Name Role Phone Brian Flores MD Primary Care Provider [phone] Encounter Details Date Type Department Care Team [...] Date Ruddy rded Speak language other than Slovenian at home Not on file 09/14/2023 Want [...] Description 07/22/2025 3:15 PM EST Office Visit [facility] Electrophysiology [address] [place] [address] Troy Alcantara MD [address] [facility] [address] [place] [id number] documented as of this encounter Visit Diagnoses Not on filedocumented in this encounter Care Teams Sorter Pricer Relationship Specialty Start Date End Date Brian Flores MD [address] [place] [address] PCP - General Adolescent Medicine 07/19/22 documented as of this encounter
--- OUTSIDE RECORDS SUMMARY | 2025-06-13 14:36 | XMS_ITS | Clinical Summary ---
Author Organization [employer] ([place], [place], [place], [place]) Address [address] [place] [address] Care Team Providers Care Partnership Development Manager Name Role Phone Brian Flores MD Primary Care Provider [phone] Allergies Active Allergy Reactions Criticality Noted Date Comments Fluticasone Low 01/28/2021 Other reaction(s): DIZZY LIGHT HEADED Hydromorphone 10/10/2022 [place] Medium 01/28/2021 Other reaction(s): MAKES CRAZY Medications [...] Description 06/06/2025 3:00 AM EDT Clinical Support [facility] Electrophysiology [address] [place] [phone] Troy Alcantara MD Encounter for adjustment or management of cardiac device (Primary Dx); Complete atrioventricular block (HCC); Presence of cardiac pacemaker 04/17/2025 3:15 PM EDT Office Visit [facility] Electrophysiology [address] [place] [address] Troy Alcantara MD Encounter for adjustment or management of cardiac device (Primary Dx) 04/17/2025 Travel 03/26/2025 Orders Only [facility] Cardiology [address] [place] [address] MagdiMarisol 03/25/2025 Telephone [facility] Cardiology [address] [place] [address] Rae Castro PA-C Medication Management from Last 3 Months Social History Tobacco Use Types Packs/Day Years Used Date Smoking Tobacco: Never Smokeless Tobacco: Never Tobacco Cessation:Counseling Given: Not Answered Family and Community Support Answer Thong e Recorded Help with Day to Day Activities Not on file 09/14/2023 Feeling Lonely or Isolated Not on file 09/14 Educational Attainment Answer Date Ruddy rded Speak language other than Israeli at home Not on file 09/14/2023 Want [...] Description 07/22/2025 3:15 PM EST Office Visit [facility] Electrophysiology [address] [place] [address] Troy Alcantara MD [address] [facility] [address] [place] [address] Health Maintenance Due Date Last Done Comments DXA SCAN 1940 Depression Screening (12+) 1951 DTAP/TDAP/TD VACCINES (1 - Tdap) 12/13/1958 Pneumococcal 50+ years (1 of 2 - PCV) 12/13/1958 Shingles Vaccine (Zoster) (1 of 2) 12/13/1989 Medicare Initial AWV G0438 11/27/2005 Respiratory Syncytial Virus (RSV) Adult or (1 - 1-dose 75+ series) 12/13/2014 Falls Risk Screening 08/28/2024 COVID-19 VACCINE (1 - 2023-2 5 season) 2025 Influenza Vaccine (#1) 2025 , 05/07/2020, 05/09/2019, Additional history exists Tobacco Cessation Counseling and Screening (12+) 04/17/2026 04/17/2025 Medical Devices Implanted Type Area Airport Traffic Controller Device Identifier Shelf Expiration Date Model / Serial / Lot Pacemakers-07/29 Implanted:08/20 by Troy Alcantara MD (Quantity not on file) Pacemakers [employer] MARJAN / [id number] / Insurance MEDICARE PART A B FOR LIFE [facility] SUPP Care Teams Partnership Development Manager Relationship Specialty Start Date End Date Brian Flores MD [address] [place] [address] PCP - General Adolescent Medicine 07/19/22
[2025-06-13 15:25] LABS: PHA INR Fingerstick 2.1 (0.9-1.1)
== END 2025-06-13 15:38 ==
LOC: ACC 14:34
PROVIDERS: PCP Nurse Practitioner Family; Visit Provider Internal Medicine Adolescent Medicine
DX: Z79.01 Long term (current) use of anticoagulants (principal); Z95.2 Presence of prosthetic heart valve
CPT/HCPCS: 85610; 99211; G0463

== ENCOUNTER 2025-07-04 13:44 | Outpatient (CLI) | payer MEDICARE, OTHER, SELFPAY ==
[2025-07-04 13:59] LABS: PHA INR Fingerstick 2.2 (0.9-1.1)
== END 2025-07-04 14:01 ==
LOC: ACC 13:45
PROVIDERS: PCP Nurse Practitioner Family; Visit Provider Internal Medicine Adolescent Medicine
DX: Z79.01 Long term (current) use of anticoagulants (principal); Z95.2 Presence of prosthetic heart valve
CPT/HCPCS: 85610; 99211; G0463

== ENCOUNTER 2025-08-15 14:55 | Outpatient (CLI) | payer MEDICARE, OTHER, SELFPAY ==
--- OUTSIDE RECORDS SUMMARY | 2025-06-06 02:00 | XMS_ITS | Encounter Summary ---
Author Organization [employer] ([place], [place], [place], [place], [place]) Address [address] [place] [address] Care Team Providers Care Pathology Laboratory Aide Name Role Phone Brian Flores MD Primary Care Provider [phone] Reason for Visit * Reason Comments Pacemaker /ICD Home Monitoring Encounter Details Date Type Department Care Team (Late st Contact Info) Description 06/06/2025 3:00 AM EDT Clinical Support [facility] Electrophysiology [address] [place] [address] [place] [address] [place] [address] [address] [place] [address] Encounter for adjustment or management of cardiac [...] Date Ruddy rded Speak language other than Surinamese at home Not on file 09/14/2023 Want [...] Care Team (Late st Contact Info) Description 07/28/2026 1:30 PM EST Office Visit [facility] Electrophysiology [address] [place] [phone] Troy Alcantara MD [address] [facility] [address] [place] [address] documented as of this encounter Visit Diagnoses Diagnosis Encounter for adjustment or management of cardiac device- Primary Complete atrioventricular block (HCC) Atrioventricular block, complete Presence of cardiac pacemaker Cardiac pacemaker in situ documented in this encounter Care Teams Pathology Laboratory Aide Relationship Specialty Start Date End Date Brian Flores MD [address] [place] [address] PCP - General Adolescent Medicine 07/19/22 documented as of this encounter
--- OUTSIDE RECORDS SUMMARY | 2025-07-22 15:15 | XMS_ITS | Encounter Summary ---
Author Organization [employer] ([place], [place], [place], [place], [place]) Address [address] [place] [address] Care Team Providers Care Agent Based Modeler Name Role Phone Brian Flores MD Primary Care Provider [phone] Reason for Visit * Reason Comments Follow-up 3 month follow up Encounter Details Date Type Department Care Team (Late st Contact Info) Description 07/22/2025 3:15 PM EST Office Visit [facility] Electrophysiology [address] [place], [place] [phone] Troy Alcantara MD [address] [place] [address] [address] [place] [address] Palpitations (Primary Dx) Social History Tobacco Use Types Packs/Day Years Used Date Smoking Tobacco: Never Smokeless Tobacco: Never Tobacco Cessation:Counseling Given: Not Answered Family and Community Support Answer Thong e Recorded Help with Day to Day Activities Not on file 09/14/2023 Feeling Lonely or Isolated Not on file 09/14 Educational Attainment Answer Date Ruddy rded Speak language other than South Korean at home Not on file 09/14/2023 Want [...] Sign Reading Time Taken Comments Blood Pressure 150/78 07/22/2025 3:41 PM EST Pulse 71 07/22/2025 3:41 PM EST Temperature - - Respiratory Rate - - Oxygen Saturation 91% 07/22/2025 3:41 PM EST Inhaled Oxygen Concentration - - Weight 86.2 kg (190 lb) 07/22/2025 3:41 PM EST Height 167.6 cm (5' 6 ) 07/22/2025 3:41 PM EST Body Mass Index 30.67 07/22/2025 3:41 PM EST documented in this encounter Progress Notes * Troy Alcantara MD - 07/22/2025 3:15 PM EST Chief Complaint/Reason for Consult: Chief Complaint Patient presents with Follow-up 3 month follow up Medications: Scheduled Medications: More meds Current Outpatient [...] tablet (5 mg total) by mouth daily. sucralfate (CARAFATE) 1 gram tablet Take 1 tablet (1 g total) by mouth daily. traZODone (DESYREL) 50 [...] cardiac device Paroxysmal atrial fibrillation (HCC) 1. Palpitations ECG 12 lead Past Medical History: Past Medical History: Diagnosis Date Encounter for adjustment or management of cardiac device 09/30/2024 Past Surgical History: No past surgical history on file. Allergies: Allergies Allergen Reactions [place] Other reaction(s): MAKES CRAZY Hydromorphone Fluticasone Other [...] present illness. Physical Exam: Blood pressure (!) 150/78, pulse 71, height 1.676 m (5' 6 ), weight 86.2 kg (190 lb), SpO2 91%. General: Alert and oriented. Eye: Pupils are equal, round and reactive to light. HENT: Normocephalic. Neck: Supple, Non-tender, No carotid bruit, No jugular venous distention. Respiratory: Lungs are clear to auscultation, Respirations are non-labored. Cardiovascular: regular rhythm, normal mechanical valve sound Gastrointestinal: Soft, Non-tender, Non-distended, Normal bowel sounds. Musculoskeletal: Normal range of motion. Integumentary: Warm, Dry, [place]. Neurologic: No obvious focal deficit Psychiatric: Cooperative, [...] results found for: AST , ALT HPI Patient is here for follow up on 07/22/2025. Interrogation today showed no A-fib at all and no PMT.Patient is doing well. Still have 7.7 years of battery left. Assessment and Plan: Annie Mejia is a 84 y.o. female, seen by me before in 2020. 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 Patient is here for follow up on 07/22/2025. Interrogation today showed no A-fib at all and no PMT.Patient is doing well. Still have 7.7 years of battery left. Will send her to cardiology and see her in 1 year. Signed Troy Alcantara MD POLYMERIZATION OPERATOR documented in this encounter Plan of Treatment Upcoming Encounters Date Type Department Care Team (Late st Contact Info) Description 07/28/2026 1:30 PM EST Office Visit [facility] Electrophysiology [address] [place] [phone] [place] [address] [place] [address] [address] [place] [address] documented as of this encounter Procedures Procedure Name Priority Date/Time Associated Diagnosis Comments FS_MODEL_IP_ECG 12-LEAD Routine 07/22/2025 3:19 P M EST Palpitations documented in this encounter Results * ECG 12 lead (07/22/2025 3:19 PM EST) us Troy Alcantara MD ECG ORDERABLES Final Result documented in this encounter Visit Diagnoses Diagnosis Palpitations- Primary documented in this encounter Care Teams Agent Based Modeler Relationship Specialty Start Date End Date Brian Flores MD [address] [place] [address] PCP - General Adolescent Medicine 07/19/22 documented as of this encounter
--- OUTSIDE RECORDS SUMMARY | 2025-08-15 14:59 | XMS_ITS | Encounter Summary ---
Author Organization [employer] ([place], [place], [place], [place], [place]) Address [address] [place] [address] Care Team Providers Care Director Of Student Financial Aid Name Role Phone Brian Flores MD Primary Care Provider [phone] Encounter Details Date Type Department Care Team (Latest Contact Info) Description 07/22/2025 Travel Social History Tobacco Use Types Packs/Day Years Used Date Smoking Tobacco: Never Smokeless Tobacco: Never Family and Community Support Answer Thong e Recorded Help with Day to Day Activities Not on file 09/14/2023 Feeling Lonely or Isolated Not on file 09/14 Educational Attainment Answer Date Ruddy rded Speak language other than Vietnamese at home Not on file 09/14/2023 Want [...] Description 07/28/2026 1:30 PM EST Office Visit [facility] Electrophysiology [address] [place] [address] Troy Alcantara MD [address] [facility] [address] [place] [address] documented as of this encounter Visit Diagnoses Not on filedocumented in this encounter Care Teams Director Of Student Financial Aid Relationship Specialty Start Date End Date Brian Flores MD [address] [place] [address] PCP - General Adolescent Medicine 07/19/22 documented as of this encounter
--- OUTSIDE RECORDS SUMMARY | 2025-08-15 14:59 | XMS_ITS | Referral Summary ---
Author Organization [employer] ([place], [place], [place], [place], [place]) Address [address] [place] [address] Care Team Providers Care Pmp Certified Project Manager Name Role Phone Brian Flores MD Primary Care Provider [phone] Encounters Date Type Department Care Team Description 07/22/2025 Travel 07/22/2025 3:15 PM EST Office Visit [facility] Electrophysiology [address] [place] [phone] Troy Alcantara MD Palpitations (Primary Dx) 06/06/2025 3:00 AM EDT Clinical Support [facility] Electrophysiology [address] [place] [phone] Troy Alcantara MD Encounter for adjustment or management of cardiac device (Primary Dx); Complete atrioventricular block (HCC); Presence of cardiac pacemaker from Last 3 Months Allergies Active Allergy Reactions Criticality Noted Date Comments Fluticasone Low 01/28/2021 Other reaction(s): DIZZY LIGHT HEADED Hydromorphone 10/10/2022 [place] Medium 01/28/2021 Other reaction(s): MAKES CRAZY Medications [...] by mouth daily. 20 tablet 4 Active sucralfate (CARAFATE) 1 gram tablet Take 1 tablet (1 g total) by mouth daily. 5 Active Active Problems Problem Noted Date Diagnosed Date Paroxysmal atrial fibrillation 01/31/2025 Encounter for adjustment or management of cardia c device 09/30/2024 H/O mechanical aortic valve replacement 07/18/20 Overview (07/18/2022): Mechanical aortic valve replacement 2003 [...] Mass Index 30.67 07/22/2025 3:41 PM EST Plan of Treatment Upcoming Encounters Date Type Department Care Team (Late st Contact Info) Description 07/28/2026 1:30 PM EST Office Visit [facility] Electrophysiology [address] [place] [address] Troy Alcantara MD [address] [place] [address] [address] [place] [address] Medical Devices Implanted Type Area Clearing Supervisor Device Identifier Shelf Expiration Date Model / Serial / Lot Pacemakers-07/29 Implanted:08/20 by Troy Alcantara MD (Quantity not on file) Pacemakers [employer] MARJAN / [id number] / Procedures Procedure Name Priority Date/Time Associated Diagnosis Comments FS_MODEL_IP_ECG 12-LEAD Routine 07/22/2025 3:19 P M EST Palpitations from Last 3 Months Results * ECG 12 lead (07/22/2025 3:19 PM EST) us Troy Alcantara MD ECG ORDERABLES Final Result from Last 3 Months Insurance MEDICARE PART A B [facility] [place] [id number] Care Teams Pmp Certified Project Manager Relationship Specialty Start Date End Date Brian Flores MD [address] [place] [address] PCP - General Adolescent Medicine 07/19/22
--- OUTSIDE RECORDS SUMMARY | 2025-08-15 15:00 | XMS_ITS | Clinical Summary ---
Author Organization [employer] ([place], [place], [place], [place], [place]) Address [address] [place] [address] Care Team Providers Care Workforce Development Specialist Name Role Phone Brian Flores MD Primary Care Provider [phone] Allergies Active Allergy Reactions Criticality Noted Date Comments Fluticasone Low 01/28/2021 Other reaction(s): DIZZY LIGHT HEADED Hydromorphone 10/10/2022 [place] Medium 01/28/2021 Other reaction(s): MAKES CRAZY Medications [...] Date Type Department Care Team Description 07/22/2025 3:15 PM EST Office Visit [facility] Electrophysiology [address] [place] [phone] Troy Alcantara MD Palpitations (Primary Dx) 07/22/2025 Travel 06/06/2025 3:00 AM EDT Clinical Support [facility] Electrophysiology [address] [place] [phone] Troy Alcantara MD Encounter for adjustment [...] Date Ruddy rded Speak language other than [place] Islander at home Not on file 09/14/2023 [...] Description 07/28/2026 1:30 PM EST Office Visit [facility] Electrophysiology [address] [place] [phone] Troy Alcantara MD [address] [place] [address] [address] [place] [address] Health Maintenance Due Date Last Done Comments [...] exists Tobacco Cessation Counseling and Screening (12+) 07/22/2026 07/22/2025 Medical Devices Implanted Type Area Telesales Agent Device Identifier Shelf Expiration Date Model / Serial / Lot Pacemakers-07/29 Implanted:08/20 by Troy Alcantara MD (Quantity not on file) Pacemakers [employer] MARJAN / [id number] / Procedures Procedure Name Priority Date/Time Associated Diagnosis Comments FS_MODEL_IP_ECG 12-LEAD Routine 07/22/2025 3:19 P M EST Palpitations from Last 3 Months Results * ECG 12 lead (07/22/2025 3:19 PM EST) Troy Alcantara MD ECG ORDERABLES Final Result from Last 3 Months Insurance MEDICARE PART A B [facility] [place] [facility] LIFE [facility] SUPP Care Teams Workforce Development Specialist Relationship Specialty Start Date End Date Brian Flores MD [address] [place] [address] PCP - General Adolescent Medicine 07/19/22
[2025-08-15 15:12] LABS: PHA INR Fingerstick 1.6 (0.9-1.1)
[2025-08-15 15:20] LABS: Hematocrit 42.6 % (37.0-47.0); Hemoglobin 14.0 g/dL (12.2-16.2); Immature Granulocytes % 0.3 %; Mean Corpuscular HGB Conc 32.9 g/dL (31.8-35.4); Mean Corpuscular Hemoglobin 30.9 pg (27.0-31.2); Mean Corpuscular Volume 94.0 fl (81-99); Nucleated Red Blood Cells % 0 %; Platelet Count 222 K/mm3 (142-424); Red Blood Count 4.53 M/mm3 (4.20-5.40); Red Cell Distribution Width-SD 45.8 fL; White Blood Count 9.3 K/mm3 (4.8-10.8)
[2025-08-15 16:32] LABS: Hemoglobin A1C 5.7 % (4.0-6.0)
[2025-08-15 17:15] LABS: Alanine Aminotransferase 19 U/L (12-78); Albumin Level 4.1 g/dl (3.5-5.0); Albumin/Globulin Ratio 1.3 (1.1-1.8); Alkaline Phosphatase 118 U/L (38-126); Anion Gap 11.5 mEq/L (5-15); Aspartate Amino Transferase 34 U/L (14-36); Bilirubin,Total 0.6 mg/dl (0.2-1.3); Blood Urea Nitrogen 13 mg/dl (7-17); Calcium 8.9 mg/dl (8.4-10.2); Carbon Dioxide 26 mmol/L (22.0-30.0); Chloride 104 mmol/L (98-107); Creatinine,Serum 0.80 mg/dl (0.52-1.04); Estimated Glomerular Filt Rate 68 ml/min (>60); GFR (African American) 82 ML/MIN (>60); Globulin 3.1 g/dL (1.3-3.2); Glucose 119 mg/dl (74-100); Magnesium 2.1 mg/dl (1.6-2.3); Potassium 4.5 mmoL/L (3.5-5.1); Sodium 137 mmol/L (136-145); Total Protein,Serum 7.2 g/dl (6.3-8.2)
[2025-08-15 17:45] LABS: Thyroid Stimulating Hormone 2.46 uIU/mL (0.465-4.68)
== END 2025-08-15 15:14 ==
LOC: ACC 14:57
PROVIDERS: PCP Nurse Practitioner Family; Visit Provider Internal Medicine Adolescent Medicine
DX: I48.0 Paroxysmal atrial fibrillation (principal); E11.9 Type 2 diabetes mellitus without complications; I10 Essential (primary) hypertension; Z79.01 Long term (current) use of anticoagulants
CPT/HCPCS: 36415; 80053; 83036; 83735; 84443; 85025; 85610; 99211; G0463